=== PATIENT | female | born 1940 | race Caucasian/White ===

== ENCOUNTER 2017-05-05 21:42 | Observation (INO) | payer MEDICARE, MEDICAID ==
[2017-05-05 23:01] LABS: Hematocrit 33 % (35-47); Hemoglobin 10.8 g/dl (12.0-16.0); Mean Corpuscular HGB Conc 33 g/dl (31-36); Mean Corpuscular Hemoglobin 34 pg (27-31); Mean Corpuscular Volume 104 fL (80-97); Mean Platelet Volume 7 um3 (7.4-10.4); Red Blood Count 3.18 10^6/ul (4.0-5.4); Red Cell Distribution Width 16 % (10.5-15); White Blood Count 8.7 10^3/ul (3.5-10.8)
[2017-05-05 23:16] LABS: ALT 17 U/L (7-52); Albumin 3.9 g/dL (3.2-5.2); Alkaline Phosphatase 83 U/L (34-104); BUN/Creatinine Ratio 31.9 (8-20); Blood Urea Nitrogen 66 mg/dL (6-24); CO2 Carbon Dioxide 29 mmol/L (22-32); Calcium 10.3 mg/dL (8.6-10.3); Chloride 94 mmol/L (101-111); EGFR African American 29.9 (>60); EGFR Non-African American 23.2 (>60); Globulin 3.6 g/dL (2-4); Glucose 104 mg/dL (70-100); Sodium 134 mmol/L (133-145); Total Protein 7.5 g/dL (6.4-8.9)
[2017-05-05 23:24] LABS: Anion Gap 11 mmol/L (2-11); Troponin I 0.06 ng/mL (<0.04)
[2017-05-05] MEDS ORDERED: Furosemide IV* 10 MG/ML VIAL (40 MG) IV ONE (23:33)
[2017-05-06 01:32] LABS: Urine Bilirubin Negative (Negative); Urine Glucose Negative (Negative); Urine Nitrite Negative (Negative)
[2017-05-06 02:20] LABS: Potassium 3.3 mmol/L (3.5-5.0); Troponin I 0.07 ng/mL (<0.04)
[2017-05-06] MEDS ORDERED: Docusate CAP* 100 MG PO PRN (03:02)
[2017-05-06] MEDS ORDERED: Ondansetron INJ* 2 MG/ML VIAL IV PRN (03:02)
[2017-05-06] MEDS ORDERED: Al Hydrox/Mg Hydrox/Simet LIQ* 30 ML UDC PO PRN (03:02)
[2017-05-06] MEDS ORDERED: Acetaminophen TAB* 325 MG PO PRN (03:02)
[2017-05-06] MEDS ORDERED: Senna TAB PO PRN (03:02)
[2017-05-06] MEDS ORDERED: traMADol TAB* 50 MG PO PRN (03:04)
[2017-05-06] MEDS ORDERED: Potassium Chlor TAB* 20 MEQ TAB.ER PO ONE (03:06)
[2017-05-06 03:21] LABS: Magnesium 2.7 mg/dL (1.9-2.7)
[2017-05-06 04:58] LABS: BUN/Creatinine Ratio 34.4 (8-20); Blood Urea Nitrogen 64 mg/dL (6-24); CO2 Carbon Dioxide 27 mmol/L (22-32); Calcium 10.1 mg/dL (8.6-10.3); Chloride 96 mmol/L (101-111); EGFR African American 33.8 (>60); EGFR Non-African American 26.3 (>60); Glucose 87 mg/dL (70-100); Sodium 134 mmol/L (133-145)
[2017-05-06 05:04] LABS: Troponin I 0.07 ng/mL (<0.04)
[2017-05-06 05:34] LABS: Anion Gap 11 mmol/L (2-11)
[2017-05-06] MEDS ORDERED: Levothyroxine TAB* 125 MCG TAB PO SCH (06:00)
--- NOTE | 2017-05-06 07:49 | RAD ---
INDICATION: Short of breath COMPARISON: October 31, 2015 TECHNIQUE: PA and lateral dual-energy views were obtained. FINDINGS: Bones/Soft Tissues: There are no acute bony findings. There is a right-sided cardiac pacemaker. There are sternotomy. Cardiomediastinal: The cardiomediastinal silhouette is at the upper range of normal in size.. Lungs: There is basilar hypoventilation but no definite infiltrates.. Pleura: There are no pleural effusions. Other: None IMPRESSION: Expiratory examination. Postoperative changes. No acute infiltrates.
--- NOTE | 2017-05-06 08:16 | HP ---
CC: Matty Gutierrez MD * HISTORY AND PHYSICAL: DATE OF ADMISSION: 05/06/17 PRIMARY CARE PHYSICIAN: Matty Gutierrez MD. CHIEF COMPLAINT: Shortness of breath. HISTORY OF PRESENT ILLNESS: This is a 75-year-old female with a past medical history of diastolic heart failure, moderate tricuspid regurg and pulmonary hypertension, who presents to the emergency room with worsening shortness of breath over the past few days. The patient was also recently diagnosed with mild Alzheimer's and is a poor historian. Her son is able to fill in some gaps , but apparently she has been short of breath for the past few days. Her neighbor was visiting, was concerned about her breathing, and the patient was gasping and bryant appearing. EMS was subsequently called. The patient states that her breathing feels better. She appears comfortable. She was given 40 mg of Lasix. She denies any chest pain. No nausea. She states she has had a good appetite. She state she takes her medications regularly. She was unable to tell me what she had for dinner last evening. She states she has some lower extremity swelling. No abdominal pain. No urinary symptoms. She states her weight has been steady around 142 pounds. Otherwise, remaining review of systems is negative. As mentioned, the patient was given 40 mg of Lasix and referred to the hospitalist service for further evaluation. PAST MEDICAL HISTORY: 1. Rheumatoid arthritis 2. Hypertension. 3. History of atrial fibrillation. 4. History of third degree heart block, status post pacemaker placement. 5. GERD. 6. Hypothyroidism. 7. Irritable bowel syndrome. 8. History of mitral valve repair, now with moderate MR. 9. Diastolic congestive heart failure. 10. Moderate TR. 11. Moderate pulmonary hypertension. 12. CKD, stage III. 13. History of aplastic anemia secondary to methotrexate. PAST SURGICAL HISTORY: 1. Cataract surgery. 2. 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 3. Status post bilateral knee replacement. 4. Status post . 5. Tubal ligation. MEDICATIONS: 1. Tramadol 50 mg p.o. t.i.d. as needed. 2. Potassium chloride 20 mEq daily. 3. Magnesium oxide 100 mg p.o. daily. 4. Hydroxychloroquine 200 mg p.o. daily. 5. Lasix 40 mg daily. 6. Amlodipine 5 mg daily. 7. Donepezil 5 mg daily. 8. Atorvastatin 20 mg daily. 9. Folic acid 1 mg daily. 10. Ferrous sulfate 225 mg p.o. b.i.d. 11. Famotidine 40 mg daily. 12. Multivitamin daily. 13. Colace 100 mg daily. 14. Aspirin 81 mg daily. 15. Vitamin C 250 mg daily. 16. Coumadin 6 mg on Sundays and Wednesdays, and 4 mg on the remaining days. 17. Synthroid 125 mcg daily. ALLERGIES: MACROLIDES, BETA BLOCKERS, CEPHALOSPORINS, CODEINE, INDOMETHACIN, NSAIDS, PENICILLIN, SULFA, QUINOLONES, ANTITUSSIVES, AND OPIOID AGONIST. FAMILY HISTORY: Reviewed and noncontributory. SOCIAL HISTORY: The patient lives alone, independent of her ADLs. Her son is there frequently visiting with her who is her healthcare proxy, Clinton Mike , phone number [phone]. She quit smoking more than 15 years ago. No alcohol use. No illicit drug use. Her MOLST form is a DNR/DNI. We will refill out another one as they aren't sure if they still have the form. REVIEW OF SYSTEMS: A 14-point review of systems was reviewed. Pertinent positives and negatives are mentioned in the HPI, otherwise negative. PHYSICAL EXAMINATION GENERAL: In no acute distress, resting comfortably with her son at the bedside. VITAL SIGNS: Temp 98.5, pulse rate 68, respiratory rate 14, oxygen saturation 96 % on room air, blood pressure 119/61. HEENT: Head normocephalic. Pupils are equal and reactive. Anicteric. Oropharynx - mucous membranes are moist. No erythema or exudate. NECK: Supple. No lymphadenopathy. RESPIRATORY: Diminished breath sounds. No wheezes, rhonchi, or rales. CARDIAC: Regular rate and rhythm with ectopic beats present. Systolic murmur heard, most prominent at the right sternal base. ABDOMEN: Soft, nontender, and nondistended. EXTREMITIES: Trace pretibial edema. NEUROLOGIC: Alert and oriented x3. No focal neurologic deficits. LABORATORY DATA: White count 8.7, hemoglobin 10.8, hematocrit 33, platelets 389. Sodium 134, potassium 3.3, chloride 94, bicarb 29, BUN 66, creatinine 2.07 , glucose 104. Troponin 0.06, repeat 0.07. BMP 387. RADIOGRAPHIC DATA: Chest x-ray with some mild prominent interstitial markings. EKG shows atrial ventricular paced rhythm. ASSESSMENT: This is a 76-year-old female with a significant cardiac history who presents to the emergency room with progressive shortness of breath, found to be in acute decompensated heart failure. 1. Shortness of breath. Assessment: The patient's findings are secondary to acute decompensated heart failure. It's unclear if it's dietary indiscretion as she is not aware what she was eating yesterday. She denies any chest pain. She has quickly improved with 40 of Lasix and appears comfortable. However, her troponin is mildly elevated. Plan: We will admit her to telemetry, continue to trend her troponin, check a lipid panel, obtain a repeat echocardiogram as the family states it has been a while since she has had one. We will check her I's and O's daily, weights, and low-salt diet. CHRONIC MEDICAL PROBLEMS 1. With history of congestive heart failure, we will resume her Lasix 40 mg p.o. daily dose with potassium chloride supplement and magnesium oxide supplement. 2. Hypertension. Resume amlodipine. 3. History of atrial fibrillation. On Coumadin. Will check her INR, and resume her regular scheduled regimen. 4. Hypothyroidism. Resume her Synthroid. 5. Gastroesophageal reflux disease. Resume her Pepcid. 6. Hyperlipidemia. Resume HER atorvastatin. 7. Dementia. Resume her Aricept. 8. History of rheumatoid arthritis. Resume her Plaquenil. 9. DVT prophylaxis. The patient scores a high risk. The patient is on Coumadin. We will check an INR. 10. Code status: The patient is a DNR/DNI. MOLST form will be completed this evening. PATIENT TIME: Greater than 60 minutes were spent doing the history and physical , more than half the time was spent in direct patient contact. [id number]/[facility]PS #: [id number] MTDD
[2017-05-06] MEDS ORDERED: Hydroxychloroquine TAB* 200 MG PO SCH (09:00)
[2017-05-06] MEDS ORDERED: Famotidine TAB* 20 MG PO SCH (09:00)
[2017-05-06] MEDS ORDERED: amLODIPine TAB* 5 MG PO SCH (09:00)
[2017-05-06] MEDS ORDERED: Folic Acid TAB* 1 MG PO SCH (09:00)
[2017-05-06] MEDS ORDERED: Potassium Chlor TAB* 20 MEQ TAB.ER PO SCH (09:00)
[2017-05-06] MEDS ORDERED: Magnesium Oxide TAB* 400 MG PO SCH (09:00)
[2017-05-06] MEDS ORDERED: Ferrous Gluconate TAB* 324 MG TAB PO SCH ×2 (09:00)
[2017-05-06] MEDS ORDERED: Ascorbic Acid TAB* 500 MG PO SCH (09:00)
[2017-05-06] MEDS ORDERED: Furosemide TAB* 40 MG PO SCH (09:00)
[2017-05-06] MEDS ORDERED: Aspirin EC Low Dose* 81 MG TAB.EC PO SCH (09:00)
[2017-05-06 10:51] LABS: TSH (Thyroid Stimulating Horm) 5.92 mcIU/mL (0.34-5.60)
[2017-05-06 10:58] LABS: Free T4 1.11 ng/dL (0.61-1.12)
[2017-05-06 11:29] VITALS: BP 115/56
[2017-05-06] MEDS ORDERED: Warfarin TAB(*) 6 MG PO SCH (17:00)
[2017-05-06] MEDS ORDERED: Atorvastatin* 20 MG TAB PO SCH (17:00)
[2017-05-06] MEDS ORDERED: Donepezil TAB* 5 MG PO SCH (18:00)
--- NOTE | 2017-05-06 18:04 | ECHO ---
Patient: CARMELINA HOLLAND [facility] Rec#: [id number] : 1940 Date: 05/06/2017 Age: 76y Height: 157.5 cm / 62.0 in Weight: 64.4 kg / 141.9 lbs Sex: F BSA: 1.65 Room#: 438 Admit Date#: 05/06/2017 Type: Inpatient Referring: Yamileth Ornelas Reading: Ming Polk MD Contact Lens Molder: Ambika Oreilly RN RDCS CC: Matty Gutierrez MD Transthoracic Echocardiogram Indication: Shortness of breath BP: 132/63 HR: 70 Rhythm: Paced Findings History: MVR, A. fib, pacemaker, CHF, HTN Technical Comments: The study quality is fair. Completed at 1535. Left Ventricle: The left ventricular chamber size is normal. Mild concentric left ventricular hypertrophy is observed. Global left ventricular wall motion and contractility are within normal limits. There is normal left ventricular systolic function. The estimated ejection fraction is 55-60%. Post surgical hypokinesis of the interventricular septum is observed consistent with valve replacement. There is abnormal ventricular septal wall motion consistent with right ventricular pacemaker. The assessment of diastolic function is non-diagnostic. Left Atrium: The left atrium is moderate to severely dilated. Right Ventricle: The right ventricular cavity size is normal. The right ventricular global systolic function is normal. A pacemaker wire is visualized in the right ventricle. Right Atrium: The right atrium is moderately dilated. A pacemaker wire is visualized in the right atrium. Aortic Valve: The aortic valve is trileaflet. The aortic valve leaflets are moderately thickened. Systolic excursion of the aortic valve cusps is reduced. There is mild aortic regurgitation. There is moderate aortic stenosis. The mean gradient of the aortic valve is 13.7 mmHg. The peak instantaneous gradient of the aortic valve is 23 mmHg. The aortic valve area, by peak velocities, is calculated at 1.4 cm2. The aortic valve area, by VTI's, is calculated at 1.2 cm2. Mitral Valve: There is posterior mitral annular calcification.There a mobile echogenic lesion adjacent to the medial chordal structures: possible mobile chordae vs artifact or less likely vegetation. consider clinical correlation and IGGY for further evaluation if indicated. There is a trace of mitral regurgitation. A bioprosthetic mitral valve is present. Appears to be functioning normally. Tricuspid Valve: The tricuspid valve leaflets are normal. There is moderate to severe tricuspid regurgitation. There is evidence of moderate pulmonary hypertension. Pulmonic Valve: The pulmonic valve appears normal. There is trace to mild pulmonic regurgitation. There is no pulmonic stenosis. Pericardium: There is no significant pericardial effusion. A pericardial fat pad is visualized. Aorta: There is no dilatation of the ascending aorta. The aortic arch is not well visualized. There is no dilation of the aortic root. Pulmonary Artery: The main pulmonary artery appears normal. Venous: The inferior vena cava appears normal in size. There is an approximate 50% respiratory change in the inferior vena cava dimension. Conclusions Mild concentric left ventricular hypertrophy is observed. The estimated ejection fraction is 55-60%. Post surgical hypokinesis of the interventricular septum is observed consistent with valve replacement. The left atrium is moderate to severely dilated. Systolic excursion of the aortic valve cusps is reduced. There is mild aortic regurgitation. There is moderate aortic stenosis. There is posterior mitral annular calcification.There is a mobile echogenic lesion adjacent to the medial chordal structures: possible mobile chordae vs artifact or less likely vegetation. Consider clinical correlation and IGGY for further evaluation if indicated. There is a trace of mitral regurgitation. A bioprosthetic mitral valve is present. Appears to be functioning normally. There is moderate to severe tricuspid regurgitation. There is evidence of moderate pulmonary hypertension. There is trace to mild pulmonic regurgitation. Interval improvement in EF c/t 10/2015 when it was 40-45%. On direct comparison, the mobile lesion in the vicinity of medial chordal apparatus appears similar; given the stability of the findings, it is likely a mobile or ruptured chordae. Measurements Name Value Normal Range RAd ISD 4CH 6.4 cm (3.4 - 4.9) RA (A4C)W 5.4 cm (2.9 - 4.6) IVSd (2D) 1.2 cm (0.6 - 1) LVPWd (2D) 1.1 cm (0.6 - 1) LVIDd (2D) 5 cm (3.6 - 5.4) LVIDs (2D) 3.1 cm - LV FS (2D) 38 % (25 - 45) EF Teichholz (2D) 68 % - Aortic Annulus 1.7 cm (1.4 - 2.6) Ao root diameter (2D) 2.7 cm (2.1 - 3.5) Ascending Ao 3.2 cm (2.1 - 3.4) LA dimension (AP) 2D 4.8 cm (2.3 - 3.8) LAd ISD 4CH 5.2 cm (2.9 - 5.3) LA ISD 4CH W 5.2 cm (2.5 - 4.5) Name Value Normal Range LA ESV SP 4CH (A/L) 93 ml - LA ESV SP 2CH (A/L) 99 ml - LA ESV BP (A/L) 97 ml - LA ESV BP (A/L) index 59 ml/m2 - LA ESV SP 4CH (MOD) 84 ml - LA ESV SP 2CH (MOD) 96 ml - Name Value Normal Range MV E-wave Vmax 1.5 m/sec - MV deceleration time 265 msec - LV septal e' Vmax 0.06 m/sec - LV lateral e' Vmax 0.09 m/sec - LV E:e' septal ratio 25 ratio - LV E:e' lateral ratio 16.7 ratio - Name Value Normal Range AV Vmax 2.4 m/sec - AV VTI 50.4 cm - AV peak gradient 23 mmHg - AV mean gradient 13.7 mmHg - LVOT diameter 2 cm - LVOT Vmax 1.1 m/sec - LVOT VTI 19.7 cm - LVOT peak gradient 5.1 mmHg - LVOT mean gradient 2.1 mmHg - DOI (VTI) 0.39 ratio - DOI (Vmax) 0.46 ratio - SV LVOT 62 ml - CO LVOT 4.3 l/min - Cardiac index 2.6 l/min/m2 - VINCENT (continuity Vmax) 1.4 cm2 - VINCENT (continuity VTI) 1.2 cm2 - Name Value Normal Range MV Vmax 1.6 m/sec - MV VTI 37 cm - MV peak gradient 10.2 mmHg - MV mean gradient 3.3 mmHg - MV PHT 93.6 msec - MVA (PHT) 2.4 cm2 - MVA (continuity VTI) 1.7 cm2 - Name Value Normal Range TR Vmax 3.4 m/sec - TR peak gradient 46 mmHg - RAP 8 mmHg - RVSP 54 mmHg - IVC diameter 1.5 cm - Name Value Normal Range PV Vmax 1.1 m/sec -
--- NOTE | 2017-05-07 12:29 | DS ---
CC: Primary Care Provider, Dr. Gutierrez * DISCHARGE SUMMARY: DATE OF ADMISSION: 05/06/17 DATE OF DISCHARGE: 05/06/17 ATTENDING PROVIDER: Ramsey Belcher MD* (DICTATED BY JESSE OLGUIN) PRIMARY DISCHARGE DIAGNOSES: 1. Acute congestive heart failure exacerbation, combined systolic and diastolic dysfunction. 2. Mild dementia. 3. Rheumatoid arthritis. 4. Atrial fibrillation. 5. Pacemaker in place with history of heart block. 6. Hypothyroidism with slightly elevated TSH but normal free T4. 7. Moderate pulmonary hypertension. 8. Stage 3 chronic kidney disease. 9. Gastroesophageal reflux disease. DISCHARGE MEDICATIONS: 1. Aspirin 81 mg p.o. daily. 2. Atorvastatin 20 mg p.o. daily. 3. Docusate 100 mg p.o. daily. 4. Donepezil 5 mg p.o. daily. 5. Pepcid 40 mg p.o. daily. 6. Ferrous gluconate 325 mg p.o. twice daily. 7. Folic acid 1 mg p.o. daily. 8. Lasix 40 mg p.o. daily. 9. Plaquenil 200 mg p.o. daily. 10. Levothyroxine 125 mcg p.o. daily. 11. Magnesium oxide 800 mg p.o. daily. 12. Multivitamin 1 tablet p.o. daily. 13. Potassium chloride 20 mEq p.o. daily. 14. Coumadin 4 mg p.o. daily. 15. Amlodipine 5 mg p.o. daily. 16. Ultram 50 mg p.o. t.i.d. as needed for pain. HOSPITAL IMAGIN. Chest x-ray shows a poor film, it is an expiratory exam with some postoperative changes, showing a right-sided pacemaker and sternotomy, but no acute infiltrates. 2. EKG shows a primarily paced rhythm. 3. Echocardiogram - pending at the time of discharge. HOSPITAL COURSE: This is a very pleasant 76-year-old female with a history of combined systolic and diastolic heart failure as well as rheumatoid arthritis, atrial fibrillation, pacemaker in place with history of heart block, hypothyroidism, prior mitral valve replacement, stage 3 chronic kidney disease and moderate pulmonary hypertension, who presented with complaints of shortness of breath and lower extremity swelling. The patient's dementia prohibited her giving a completely accurate history but denied any dietary discretions and states that she generally keeps a low-salt diet. Denied any associated chest pain or significant weight gain per se. Her chest x-ray in the emergency department was nondiagnostic. Initial labs were remarkable for slightly elevated troponin to 0.06. Renal function slightly impaired but at her baseline and BNP was mildly elevated. She received 40 mg of IV Lasix in the emergency department and was subsequently admitted for additional observation. The patient states that she diuresed significantly after receiving IV Lasix and felt that her shortness of breath resolved. She was able to ambulate to the bathroom and back without dyspnea. Serial troponins remained stable at approximately 0.06 to 0.07. TSH was checked, which was elevated to 5.9, but free T4 was on the high side of normal at 1.1 and for this reason, her levothyroxine dose was not changed, but does require further followup in 4 to 6 weeks. DISPOSITION AND FOLLOWUP PLAN: The patient is being discharged to home where she lives at [facility]. No changes to home medications recommended at this time as she now appears to be euvolemic. Recommend close followup with primary care within the next week. She does require a repeat TSH and free T4 in 4 to 6 weeks as well as a repeat INR on Thursday as she is subtherapeutic at 1.6 at the time of discharge. JESSE OLGUIN [id number]/[facility] #: [id number] JEANETH
[2017-05-07] MEDS ORDERED: Warfarin TAB(*) 4 MG PO SCH (17:00)
== END 2017-05-06 19:00 | disposition home or self-care (01) ==
LOC: ED 21:42 → MEDTELE 05-06 03:02
PROVIDERS: ADMIT Pediatrics; ATTEND Physician Assistant
DX: I50.43 Acute on chronic combined systolic (congestive) and diastolic (congestive) heart failure (principal); M06.9 Rheumatoid arthritis, unspecified; I48.91 Unspecified atrial fibrillation; Z95.0 Presence of cardiac pacemaker; E03.9 Hypothyroidism, unspecified; Z95.2 Presence of prosthetic heart valve; N18.3 Chronic kidney disease, stage 3 (moderate); I27.2 Other secondary pulmonary hypertension; R06.02 Shortness of breath; R60.9 Edema, unspecified; I45.9 Conduction disorder, unspecified; I12.9 Hypertensive chronic kidney disease with stage 1 through stage 4 chronic kidney disease, or unspecified chronic kidney disease; I34.0 Nonrheumatic mitral (valve) insufficiency; Z79.01 Long term (current) use of anticoagulants; Z79.82 Long term (current) use of aspirin; R74.8 Abnormal levels of other serum enzymes
CPT/HCPCS: 36415; 71020; 80048; 80053; 81003; 83605; 83735; 83880; 84132; 84439; 84443; 84484; 85025; 85610; 85730; 93005; 93306; 96374; 99283; A9270-GY; G0378; J1940

== ENCOUNTER 2017-07-23 20:45 | Inpatient (IN) | payer MEDICARE, MEDICAID ==
--- NOTE | 2017-07-23 21:49 | RAD ---
INDICATION: Fall, anticoagulation. COMPARISON: Comparison is made with a prior CT of the brain from February 13, 2015. TECHNIQUE: Contiguous axial sections of the brain were obtained from the skull base to the vertex without contrast. FINDINGS: The ventricles, cisterns and sulci are enlarged consistent with diffuse atrophy. There are multiple focal areas of decreased density in the subcortical and periventricular white matter suggestive of moderate chronic small vessel ischemic changes. 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 No other focal abnormalities are seen. No mass effect is noted. There is no evidence for hemorrhage. No significant focal osseous abnormality is seen. The visualized portion of the paranasal sinuses and mastoid air cells appear clear. IMPRESSION: NO EVIDENCE FOR ACUTE INTRACRANIAL ABNORMALITY.
--- NOTE | 2017-07-23 21:56 | RAD ---
INDICATION: Fall, weakness. COMPARISON: Comparison is made with a prior chest x-ray study from May 05, 2017. TECHNIQUE: Dual-energy PA views of the chest were obtained. FINDINGS: The patient is status post sternotomy. There is a dual-chamber transvenous pacemaker present. The heart is mildly enlarged and unchanged from the prior exam. The lungs are underinflated. There is a small infiltrate in the left mid lung. No pleural effusion is seen. IMPRESSION: HYPOVENTILATION SMALL LEFT LUNG INFILTRATE.
[2017-07-23 22:24] LABS: Hematocrit 27 % (35-47); Hemoglobin 8.9 g/dl (12.0-16.0); Mean Corpuscular HGB Conc 33 g/dl (31-36); Mean Corpuscular Hemoglobin 34 pg (27-31); Mean Corpuscular Volume 104 fL (80-97); Mean Platelet Volume 7 um3 (7.4-10.4); Red Blood Count 2.62 10^6/ul (4.0-5.4); Red Cell Distribution Width 18 % (10.5-15)
[2017-07-23 22:38] LABS: Albumin 3.4 g/dL (3.2-5.2); BUN/Creatinine Ratio 39.6 (8-20); Calcium 10.7 mg/dL (8.6-10.3); EGFR African American 29.9 (>60); EGFR Non-African American 23.2 (>60); Total Bilirubin 0.3 mg/dL (0.2-1.0); Total Protein 6.4 g/dL (6.4-8.9)
[2017-07-23 22:40] LABS: Potassium 2.3 mmol/L (3.5-5.0)
[2017-07-23 22:43] LABS: Troponin I 0.1 ng/mL (<0.04)
[2017-07-23] MEDS ORDERED: Acetaminophen TAB* 325 MG PO PRN (23:23)
[2017-07-23] MEDS ORDERED: CMCS:Melatonin (NF) 3 MG TAB PO PRN (23:23)
[2017-07-23] MEDS ORDERED: Albuterol 2.5 MG/3 ML NEB.SOL* (0.083%) INH PRN (23:23)
[2017-07-23 23:24] LABS: Urine Bacteria Absent (Absent); Urine Bilirubin Negative (Negative); Urine Glucose Negative (Negative); Urine Nitrite Negative (Negative)
--- NOTE | 2017-07-23 23:25 | ED ---
Robin Singletary Rebecca, scribed for Katharine Meza MD on 07/23/17 at 2129 . Complex/Multi-Sys Presentation - HPI Summary HPI Summary: Pt is a 76 y/o F BIBA who presents to ED s/p mechanical fall. At approximately 1900 the pt had an unwitnessed fall. Pt c/o dizziness that is resolved when laying down. Pt's son has been concerned with her recent sx of difficulty standing and SOB. Pt's son last saw her 2 days ago, during which he reports she was doing well. Denies dysuria, neck pain. Pt reports she does not believe she is experiencing fluid retention. Intermittently uses O2 at home. Is on Coumadin and the son reports she typically bruises easily. PMHx dementia. Majority of Hx obtained from son which he confirms is normal. - History Of Current Complaint Chief Complaint: EDGeneral Time Seen by Provider: 07/23/17 21:13 Hx Obtained From: Patient Onset/Duration: Still Present Severity Currently: Moderate - 4/10 Aggravating Factor(s): Nothing Alleviating Factor(s): Dizziness - laying down Associated Signs And Symptoms: Positive: Dizziness, SOB, Other - Difficulty standing - Allergies/Home Medications Allergies/Adverse Reactions: Allergies Allergy/AdvReac Type Severity Reaction Status Date / Time Macrolides and Ketolides Allergy Severe possible Verified 10/31/15 23:21 QT prolongation/torsades Beta Adrenergic Blockers Allergy Unknown Verified 10/31/15 23:21 Reaction Details Cephalosporins Allergy Unknown Verified 10/31/15 23:21 Reaction Details Codeine Allergy See Comment Verified 10/31/15 23:21 Indomethacin [From Indocin] Allergy Unknown Verified 10/31/15 23:21 Reaction Details NSAIDs Allergy See Comment Verified 10/31/15 23:21 Penicillins Allergy Unknown Verified 10/31/15 23:21 Reaction Details Sulfa Drugs Allergy Unknown Verified 10/31/15 23:21 Reaction Details quinalones Allergy Severe possible Uncoded 10/31/15 23:21 QT prolongation /torasades ANTITUSSIVES Allergy Unknown Uncoded 10/31/15 23:21 Reaction Details OPIATE AGONISTS Allergy Unknown Uncoded 10/31/15 23:21 Reaction Details PMH/Surg Hx/FS Hx/Imm Hx Endocrine/Hematology History: Reports: Hx Anticoagulant Therapy - takes coumadin , Hx Thyroid Disease, Hx Anemia - aplastic anemia 2013 Denies: Hx Diabetes Cardiovascular History: Reports: Hx Congestive Heart Failure, Hx Coronary Artery Disease, Hx Hypertension, Hx Pacemaker/ICD, Hx Syncope, Hx Valvular Heart Disease - mitral valve disorder, Other Cardiovascular Problems/Disorders - Coumadin Respiratory History: Reports: Hx Asthma, Hx Pneumonia GI History: Reports: Hx Gastroesophageal Reflux Disease, Hx Ulcer - gastric in the History: Reports: Hx Acute Renal Failure - elevated BUN and Creat Musculoskeletal History: Reports: Hx Arthritis, Hx Back Problems, Hx Gout, Other Musculoskeletal History - RA Denies: Hx Osteoporosis Sensory History: Reports: Hx Cataracts - removed, Hx Contacts or Glasses, Hx Glaucoma Denies: Hx Hearing Aid Opthamlomology History: Reports: Hx Cataracts - removed, Hx Contacts or Glasses , Hx Glaucoma Neurological History: Reports: Hx Dementia Denies: Hx Developmental Delay, Hx Headaches, Hx Migraine, Hx Nerve Disease, Hx Seizures, Hx Spinal Cord Injury, Hx Transient Ischemic Attacks (TIA), Other Neuro Impairments/Disorders - Cancer History Cancer Type, Location and Year: pt seen by oncology for aplastic anemia, resolved per pt Hx Chemotherapy: No Hx Radiation Therapy: No Hx Palliative Cancer Treatment: No - Surgical History Surgery Procedure, Year, and Place: Bilat knee replacements at [facility] ? 1914-1763. Right wrist pinning at [facility] ?1997. Back surgery at [facility] ?2000. Pacemaker placed at [facility] 1994. Thyroid surgery at [facility] 1996. . x3. Cataract surgery. Appendectomy 1959 Hx Anesthesia Reactions: No Infectious Disease History: No Infectious Disease History: Reports: Hx Hepatitis - nothing active, History Other Infectious Disease - unidentified abx-resistant infection in foot, negative MRSA Denies: Traveled Outside the [place] in Last 30 Days - Family History Known Family History: Positive: Cardiac Disease, Hypertension, Diabetes - Social History Alcohol Use: None Substance Use Type: Reports: None Smoking Status (MU): Former Smoker Review of Systems Positive: Other - Difficulty standing Positive: Shortness Of Breath Negative: dysuria Positive: Other - NEGATIVE: Neck pain Neurological: Other - Dizziness All Other Systems Reviewed And Are Negative: Yes Physical Exam - Summary Physical Exam Summary: General: Well appearing, no pain distress Skin: Warm, Skin Color Reflects Adequate Perfusion, Dry Eyes: EOMI, SEBASTIAN ENT: Pharynx normal, TMs normal Neck: Supple, nontender Respiratory: CTA, breath sounds present, no rhonchi, no wheezes, no rales Cardiovascular: RRR, no murmur, no rub, no gallop Abdomen: Soft, nontender, Non-distended, no guarding, no rebound Bowel: Present Musculoskeletal: [place], No edema Neuro: Sensory/motor intact, A&Ox3, CN intact 2-12 Psych: Affect/mood appropriate Triage Information Reviewed: Yes Vital Signs On Initial Exam: Initial Vitals Temp Pulse Resp BP Pulse Ox 99.2 F 70 16 143/40 100 07/23/17 21:06 07/23/17 21:06 07/23/17 21:06 07/23/17 21:06 07/23/17 21:06 Vital Signs Reviewed: Yes - [place] Coma Scale Coma Scale Total: 14 Diagnostics - Vital Signs Vital Signs Temp Pulse Resp BP Pulse Ox 07/23/17 21:06 99.2 F 70 16 143/40 100 - Laboratory Lab Results: Lab Results 07/23/17 07/23/17 07/23/17 Range/Units 22:15 22:15 22:15 WBC 9.0 (3.5-10.8) 10^3/ul RBC 2.62 L (4.0-5.4) 10^6/ul Hgb 8.9 L (12.0-16.0) g/dl Hct 27 L (35-47) % MCV 104 H (80-97) fL MCH 34 H (27-31) pg MCHC 33 (31-36) g/dl RDW 18 H (10.5-15) % Plt Count 414 (150-450) 10^3/ul MPV 7 L (7.4-10.4) um3 Neut % (Auto) 80.5 (38-83) % Lymph % (Auto) 8.2 L (25-47) % [place] % (Auto) 10.2 H (1-9) % Eos % (Auto) 0.2 (0-6) % Baso % (Auto) 0.9 (0-2) % Absolute Neuts (auto) 7.3 (1.5-7.7) 10^3/ul Absolute Lymphs (auto) 0.7 L (1.0-4.8) 10^3/ul Absolute Monos (auto) 0.9 H (0-0.8) 10^3/ul Absolute Eos (auto) 0 (0-0.6) 10^3/ul Absolute Basos (auto) 0.1 (0-0.2) 10^3/ul Absolute Nucleated RBC 0.03 10^3/ul Nucleated RBC % 0.3 INR (Anticoag Therapy) 4.01 H (0.89-1.11) APTT 28.1 (26.0-36.3) seconds Sodium 135 (133-145) mmol/L Potassium 2.3 L* (3.5-5.0) mmol/L Chloride 92 L (101-111) mmol/L Carbon Dioxide 32 (22-32) mmol/L Anion Gap 11 (2-11) mmol/L BUN 82 H (6-24) mg/dL Creatinine 2.07 H (0.51-0.95) mg/dL Est GFR ( Amer) 29.9 (>60) Est GFR (Non-Af Amer) 23.2 (>60) BUN/Creatinine Ratio 39.6 H (8-20) Glucose 121 H (70-100) mg/dL Lactic Acid (0.5-2.0) mmol/L Calcium 10.7 H (8.6-10.3) mg/dL Total Bilirubin 0.30 (0.2-1.0) mg/dL AST 29 (13-39) U/L ALT 16 (7-52) U/L Alkaline Phosphatase 87 (34-104) U/L Troponin I 0.10 H* (<0.04) ng/mL Total Protein 6.4 (6.4-8.9) g/dL Albumin 3.4 (3.2-5.2) g/dL Globulin 3.0 (2-4) g/dL Albumin/Globulin Ratio 1.1 (1-3) 07/23/17 Range/Units 22:15 WBC (3.5-10.8) 10^3/ul RBC (4.0-5.4) 10^6/ul Hgb (12.0-16.0) g/dl Hct (35-47) % MCV (80-97) fL MCH (27-31) pg MCHC (31-36) g/dl RDW (10.5-15) % Plt Count (150-450) 10^3/ul MPV (7.4-10.4) um3 Neut % (Auto) (38-83) % Lymph % (Auto) (25-47) % [place] % (Auto) (1-9) % Eos % (Auto) (0-6) % Baso % (Auto) (0-2) % Absolute Neuts (auto) (1.5-7.7) 10^3/ul Absolute Lymphs (auto) (1.0-4.8) 10^3/ul Absolute Monos (auto) (0-0.8) 10^3/ul Absolute Eos (auto) (0-0.6) 10^3/ul Absolute Basos (auto) (0-0.2) 10^3/ul Absolute Nucleated RBC 10^3/ul Nucleated RBC % INR (Anticoag Therapy) (0.89-1.11) APTT (26.0-36.3) seconds Sodium (133-145) mmol/L Potassium (3.5-5.0) mmol/L Chloride (101-111) mmol/L Carbon Dioxide (22-32) mmol/L Anion Gap (2-11) mmol/L BUN (6-24) mg/dL Creatinine (0.51-0.95) mg/dL Est GFR ( Amer) (>60) Est GFR (Non-Af Amer) (>60) BUN/Creatinine Ratio (8-20) Glucose (70-100) mg/dL Lactic Acid 1.3 (0.5-2.0) mmol/L Calcium (8.6-10.3) mg/dL Total Bilirubin (0.2-1.0) mg/dL AST (13-39) U/L ALT (7-52) U/L Alkaline Phosphatase (34-104) U/L Troponin I (<0.04) ng/mL Total Protein (6.4-8.9) g/dL Albumin (3.2-5.2) g/dL Globulin (2-4) g/dL Albumin/Globulin Ratio (1-3) Result Diagrams: 07/23/17 22:15 07/23/17 22:15 Lab Statement: Any lab studies that have been ordered have been reviewed, and results considered in the medical decision making process. - Radiology CXR Xray Interpretation: Positive (See Comments) - HYPOVENTILATION SMALL LEFT LUNG INFILTRATE. ED physician reviewed radiology report and agrees. Radiology Interpretation Completed By: Radiologist - CT Brain CT CT Interpretation: No Acute Changes - NO EVIDENCE FOR ACUTE INTRACRANIAL ABNORMALITY. ED physician reviewed radiology report and agrees. CT Interpretation Completed By: Radiologist - EKG 2140 Cardiac Rate: NL - 88 bpm EKG Interpretation: Ventricular paced rhythm Complex Multi-Symp Course/Dx Course Of Treatment: 76 yo female who sustained an unwitnessed fall with dizziness today, ct brain normal but potassium markedly low and trop .10 pt denies any chest pain and ekg is paced. Case was discussed with Dr. Mayes who will be admitting the pt - Diagnoses Provider Diagnoses: Myocardial infarct, Hypokalemia Discharge - Discharge Plan Condition: Stable Disposition: ADMITTED TO [facility] The documentation as recorded by the Robin nunes Rebecca accurately reflects the service I personally performed and the decisions made by me, Katharine Meza MD.
[2017-07-23] MEDS ORDERED: Phytonadione Oral Solution* 5 MG/25 ML UDC PO ONE (23:35)
[2017-07-24] MEDS: NS 0.9% 1000 ML* 1,000 ML IV SCH ×2 (01:12→14:58)
[2017-07-24 02:43] LABS: Hematocrit 27 % (35-47); Hemoglobin 8.8 g/dl (12.0-16.0)
--- NOTE | 2017-07-24 05:43 | HP ---
H&P (Free Text) History and Physical: PCP: ANDRÉS Gutierrez MD Date/Time: 07/23/2017 [id number] CC: unwitnessed fall, on warfarin HPI: Mrs Mike is a 76YO female HX RA, pacer, mitral valve repair, AFIB, diastolic HF, CKD stg 3 called her son today around 1900 advising him she had fallen earlier after experiencing spinning dizziness. Upon arrival to her home, he states she appeared to have been on the toilet and to have fallen forward into the wall. She appeared disoriented to him and as he was aware of the dangers of a fall on warfarin he encouraged her to be evaluated. She additionally reports increased SOB for the past 1-2 weeks without a correlating increase in weight. She denies chest pain, N/V, F/C, cough, congestion, LE swelling, or other issues. 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 mitral valve repair, currently w/ moderate MR moderate TR moderate pHTN chronic diastolic HF AFIB CKD stg 4 HTN hypothyroidism GERD IBS, constipation dominant Ambulatory Orders Magnesium Oxide TAB* [MagOx 400 TAB*] 800 mg PO DAILY 05/11/13 Donepezil TAB* [Aricept 5 MG TAB*] 5 mg PO QPM 02/22/15 Hydroxychloroquine TAB* [Plaquenil TAB*] 200 mg PO DAILY 02/22/15 Levothyroxine TAB* [Synthroid 125 MCG TAB*] 125 mcg PO DAILY 02/22/15 Potassium Chloride Microencaps [Klor-Con M20] 20 meq PO DAILY 02/22/15 Warfarin TAB(*) [Coumadin TAB(*)] 4 mg PO DAILY 02/22/15 amLODIPine TAB* [Norvasc 5 mg TAB*] 5 mg PO DAILY 02/22/15 traMADol TAB* [Ultram*] 50 mg PO TID PRN 02/22/15 Ascorbic Acid TAB* [Vitamin C TAB*] 250 mg PO DAILY 11/01/15 Atorvastatin* [Lipitor 20 MG*] 20 mg PO 1700 11/01/15 Docusate CAP* [Colace Cap*] 100 mg PO DAILY 11/01/15 Famotidine TAB* [Pepcid 20 MG TAB*] 40 mg PO DAILY 11/01/15 Ferrous Gluconate TAB* [Fergon TAB*] 325 mg PO BID 11/01/15 Folic Acid TAB* [Folvite TAB*] 1 mg PO DAILY 11/01/15 Multiple Vitamins W/ Minerals [Multivitamin Adults 50+] 1 tab PO DAILY 11/01/15 Furosemide TAB* [Lasix TAB*] 40 mg PO DAILY #30 tab 11/02/15 Aspirin [Aspirin 81 MG TAB] 81 mg PO DAILY 05/05/17 Allergies Macrolides and Ketolides Allergy (Severe, Verified 10/31/15 23:21) possible QT prolongation/torsades Beta Adrenergic Blockers Allergy (Verified 10/31/15 23:21) Unknown Reaction Details PT DOES NOT RECALL Cephalosporins Allergy (Verified 10/31/15 23:21) Unknown Reaction Details PT DOES NOT RECALL Codeine Allergy (Verified 07/23/17 23:29) Unknown Reaction Details Indomethacin [From Indocin] Allergy (Verified 10/31/15 23:21) Unknown Reaction Details PT DOES NOT RECALL NSAIDs Allergy (Verified 07/23/17 23:29) Unknown Reaction Details Penicillins Allergy (Verified 10/31/15 23:21) Unknown Reaction Details PT DOES NOT RECALL Sulfa Drugs Allergy (Verified 10/31/15 23:21) Unknown Reaction Details PT DOES NOT RECALL quinalones Allergy (Severe, Uncoded 10/31/15 23:21) possible QT prolongation /torasades ANTITUSSIVES Allergy (Uncoded 10/31/15 23:21) Unknown Reaction Details PT DOES NOT RECALL OPIATE AGONISTS Allergy (Uncoded 10/31/15 23:21) Unknown Reaction Details PT DOES NOT RECALL PSurgHx cataract extraction 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 2nd washing machine B TKA section tubal ligation SocHx: quit smoking ~15years ago, no alcohol or recreational drugs; , lives alone, son frequently visits, no home health; DNR code status, MOLST filled out FamHx: reviewed, non-contributory to presentation ROS: as above, otherwise reviewed and all were negative vitals: Vital Signs Temp 36.6 C 07/24/17 00:35 Pulse 70 07/24/17 00:35 Resp 20 07/24/17 00:35 BP 113/57 07/24/17 00:35 Pulse Ox 100 07/24/17 00:35 Constitutional: NAD, normally developed, well-nourished elderly white female HEENM: atraumatic; sclera/conjunctiva: non-icteric/clear; hearing: clinically intact; oropharynx: clear, mucosa moist Neck: soft tissue: non-tender; thyroid: normal Pulmonary: clear to auscultation bilaterally, good aeration, no accessory muscle use CV: RR/RR, normal S1S2, no carotid bruit, no jugular venous distention, 2+ B DP/ PT, no edema Abdominal: soft, non-distended, non-tender, no rebound/guarding/rigidity, normoactive bowel sounds, no hepatosplenomegaly or masses, no costovertebral angle tenderness Musculoskeletal: general: grossly intact, no palpable tenderness Integumental: scattered bruising Psychiatric orientation: AA&O to PP, loosely to situation affect: calm mood: cooperative eye contact: fair content: mostly reliable responses: timely insight: fair Testing: Lab Results 07/23/17 07/23/17 07/23/17 Range/Units 22:15 22:15 22:15 WBC 9.0 (3.5-10.8) 10^3/ul RBC 2.62 L (4.0-5.4) 10^6/ul Hgb 8.9 L (12.0-16.0) g/dl Hct 27 L (35-47) % MCV 104 H (80-97) fL MCH 34 H (27-31) pg MCHC 33 (31-36) g/dl RDW 18 H (10.5-15) % Plt Count 414 (150-450) 10^3/ul MPV 7 L (7.4-10.4) um3 Neut % (Auto) 80.5 (38-83) % Lymph % (Auto) 8.2 L (25-47) % [place] % (Auto) 10.2 H (1-9) % Eos % (Auto) 0.2 (0-6) % Baso % (Auto) 0.9 (0-2) % Absolute Neuts (auto) 7.3 (1.5-7.7) 10^3/ul Absolute Lymphs (auto) 0.7 L (1.0-4.8) 10^3/ul Absolute Monos (auto) 0.9 H (0-0.8) 10^3/ul Absolute Eos (auto) 0 (0-0.6) 10^3/ul Absolute Basos (auto) 0.1 (0-0.2) 10^3/ul Absolute Nucleated RBC 0.03 10^3/ul Nucleated RBC % 0.3 INR (Anticoag Therapy) 4.01 H (0.89-1.11) APTT 28.1 (26.0-36.3) seconds Sodium 135 (133-145) mmol/L Potassium 2.3 L* (3.5-5.0) mmol/L Chloride 92 L (101-111) mmol/L Carbon Dioxide 32 (22-32) mmol/L Anion Gap 11 (2-11) mmol/L BUN 82 H (6-24) mg/dL Creatinine 2.07 H (0.51-0.95) mg/dL Est GFR ( Amer) 29.9 (>60) Est GFR (Non-Af Amer) 23.2 (>60) BUN/Creatinine Ratio 39.6 H (8-20) Glucose 121 H (70-100) mg/dL Lactic Acid (0.5-2.0) mmol/L Calcium 10.7 H (8.6-10.3) mg/dL Total Bilirubin 0.30 (0.2-1.0) mg/dL AST 29 (13-39) U/L ALT 16 (7-52) U/L Alkaline Phosphatase 87 (34-104) U/L Troponin I 0.10 H* (<0.04) ng/mL Total Protein 6.4 (6.4-8.9) g/dL Albumin 3.4 (3.2-5.2) g/dL Globulin 3.0 (2-4) g/dL Albumin/Globulin Ratio 1.1 (1-3) Urine Color Urine Appearance Urine pH (5-9) Ur Specific [place] (1.010-1.030) Urine Protein (Negative) Urine Ketones (Negative) Urine Blood (Negative) Urine Nitrate (Negative) Urine Bilirubin (Negative) Urine Urobilinogen (Negative) Ur Leukocyte Esterase (Negative) Urine WBC (Auto) (Absent) Urine RBC (Auto) (Absent) Urine Bacteria (Absent) Urine Glucose (Negative) Urine Ascorbic Acid (Negative) 07/23/17 07/23/17 07/24/17 Range/Units 22:15 22:50 02:31 WBC (3.5-10.8) 10^3/ul RBC (4.0-5.4) 10^6/ul Hgb (12.0-16.0) g/dl Hct (35-47) % MCV (80-97) fL MCH (27-31) pg MCHC (31-36) g/dl RDW (10.5-15) % Plt Count (150-450) 10^3/ul MPV (7.4-10.4) um3 Neut % (Auto) (38-83) % Lymph % (Auto) (25-47) % [place] % (Auto) (1-9) % Eos % (Auto) (0-6) % Baso % (Auto) (0-2) % Absolute Neuts (auto) (1.5-7.7) 10^3/ul Absolute Lymphs (auto) (1.0-4.8) 10^3/ul Absolute Monos (auto) (0-0.8) 10^3/ul Absolute Eos (auto) (0-0.6) 10^3/ul Absolute Basos (auto) (0-0.2) 10^3/ul Absolute Nucleated RBC 10^3/ul Nucleated RBC % INR (Anticoag Therapy) (0.89-1.11) APTT (26.0-36.3) seconds Sodium (133-145) mmol/L Potassium (3.5-5.0) mmol/L Chloride (101-111) mmol/L Carbon Dioxide (22-32) mmol/L Anion Gap (2-11) mmol/L BUN (6-24) mg/dL Creatinine (0.51-0.95) mg/dL Est GFR ( Amer) (>60) Est GFR (Non-Af Amer) (>60) BUN/Creatinine Ratio (8-20) Glucose (70-100) mg/dL Lactic Acid 1.3 1.8 (0.5-2.0) mmol/L Calcium (8.6-10.3) mg/dL Total Bilirubin (0.2-1.0) mg/dL AST (13-39) U/L ALT (7-52) U/L Alkaline Phosphatase (34-104) U/L Troponin I (<0.04) ng/mL Total Protein (6.4-8.9) g/dL Albumin (3.2-5.2) g/dL Globulin (2-4) g/dL Albumin/Globulin Ratio (1-3) Urine Color Yellow Urine Appearance Clear Urine pH 7.0 (5-9) Ur Specific [place] 1.009 L (1.010-1.030) Urine Protein Negative (Negative) Urine Ketones Negative (Negative) Urine Blood Negative (Negative) Urine Nitrate Negative (Negative) Urine Bilirubin Negative (Negative) Urine Urobilinogen Negative (Negative) Ur Leukocyte Esterase 2+ H (Negative) Urine WBC (Auto) Trace(0-5/hpf) (Absent) Urine RBC (Auto) Absent (Absent) Urine Bacteria Absent (Absent) Urine Glucose Negative (Negative) Urine Ascorbic Acid * H (Negative) 07/24/17 07/24/17 Range/Units 02:31 02:31 WBC (3.5-10.8) 10^3/ul RBC (4.0-5.4) 10^6/ul Hgb 8.8 L (12.0-16.0) g/dl Hct 27 L (35-47) % MCV (80-97) fL MCH (27-31) pg MCHC (31-36) g/dl RDW (10.5-15) % Plt Count (150-450) 10^3/ul MPV (7.4-10.4) um3 Neut % (Auto) (38-83) % Lymph % (Auto) (25-47) % [place] % (Auto) (1-9) % Eos % (Auto) (0-6) % Baso % (Auto) (0-2) % Absolute Neuts (auto) (1.5-7.7) 10^3/ul Absolute Lymphs (auto) (1.0-4.8) 10^3/ul Absolute Monos (auto) (0-0.8) 10^3/ul Absolute Eos (auto) (0-0.6) 10^3/ul Absolute Basos (auto) (0-0.2) 10^3/ul Absolute Nucleated RBC 10^3/ul Nucleated RBC % INR (Anticoag Therapy) (0.89-1.11) APTT (26.0-36.3) seconds Sodium (133-145) mmol/L Potassium (3.5-5.0) mmol/L Chloride (101-111) mmol/L Carbon Dioxide (22-32) mmol/L Anion Gap (2-11) mmol/L BUN (6-24) mg/dL Creatinine (0.51-0.95) mg/dL Est GFR ( Amer) (>60) Est GFR (Non-Af Amer) (>60) BUN/Creatinine Ratio (8-20) Glucose (70-100) mg/dL Lactic Acid (0.5-2.0) mmol/L Calcium (8.6-10.3) mg/dL Total Bilirubin (0.2-1.0) mg/dL AST (13-39) U/L ALT (7-52) U/L Alkaline Phosphatase (34-104) U/L Troponin I 0.11 H* (<0.04) ng/mL Total Protein (6.4-8.9) g/dL Albumin (3.2-5.2) g/dL Globulin (2-4) g/dL Albumin/Globulin Ratio (1-3) Urine Color Urine Appearance Urine pH (5-9) Ur Specific [place] (1.010-1.030) Urine Protein (Negative) Urine Ketones (Negative) Urine Blood (Negative) Urine Nitrate (Negative) Urine Bilirubin (Negative) Urine Urobilinogen (Negative) Ur Leukocyte Esterase (Negative) Urine WBC (Auto) (Absent) Urine RBC (Auto) (Absent) Urine Bacteria (Absent) Urine Glucose (Negative) Urine Ascorbic Acid (Negative) ECG, personally reviewed: ventricularly paced rhythme with frequent PVCs rate 88 CXR, personally reviewed: IMPRESSION: HYPOVENTILATION SMALL LEFT LUNG INFILTRATE. CT brain WO, personally reviewed: IMPRESSION: NO EVIDENCE FOR ACUTE INTRACRANIAL ABNORMALITY. ECHO (05/06/2017): Conclusions: Mild concentric left ventricular hypertrophy is observed. The estimated ejection fraction is 55-60%. Post surgical hypokinesis of the interventricular septum is observed consistent with valve replacement. The left atrium is moderate to severely dilated. Systolic excursion of the aortic valve cusps is reduced. There is mild aortic regurgitation. There is moderate aortic stenosis. There is posterior mitral annular calcification.There is a mobile echogenic lesion adjacent to the medial chordal structures: possible mobile chordae vs artifact or less likely vegetation. Consider clinical correlation and IGGY for further evaluation if indicated. There is a trace of mitral regurgitation. A bioprosthetic mitral valve is present. Appears to be functioning normally. There is moderate to severe tricuspid regurgitation. There is evidence of moderate pulmonary hypertension. There is trace to mild pulmonic regurgitation. Interval improvement in EF c/t 10/2015 when it was 40-45%. On direct comparison, the mobile lesion in the vicinity of medial chordal apparatus appears similar; given the stability of the findings , it is likely a mobile or ruptured chordae. Impression: 76F presenting after mechanical fall ? syncope on warfarin (super therapeutic), hypoKalemia, & elevated troponin DIAGNOSIS & PLAN Primary mechanical fall ? syncope : telemetry : social group worker consult for consideration of home health : supplemental oxygen : PT/OT evaluations : supportive care elevated troponin : suspect demand ischemia : telemetry & trend hypoKalemia : replace warfarin toxicity : 2.5mg vitamin K PO, recheck in AM Secondary rheumatoid arthritis aplastic anemia 2nd methotrexate 3rd degree AV block s/p pacer placement mitral valve repair, currently w/ moderate MR moderate TR moderate pHTN chronic diastolic HF AFIB CKD stg 4 HTN hypothyroidism GERD IBS, constipation dominant : review home medication list once reconciled Admission Rational: observation for fall ? syncope, hypoK, & elevated troponin DVTp: warfarin (on hold until INR down to therapeutic) Code Status: DNR, MOLST filled out HCP: son
[2017-07-24] MEDS: KCL 20 MEQ/100 ML IVPREMIX* 20 MEQ/100 ML BAG IV SCH ×2 (05:57→09:20)
[2017-07-24] MEDS: Omeprazole CAP* 20 MG PO SCH (06:01)
[2017-07-24 06:07] LABS: Hematocrit 24 % (35-47); Hemoglobin 7.6 g/dl (12.0-16.0); Mean Corpuscular HGB Conc 32 g/dl (31-36); Mean Corpuscular Hemoglobin 34 pg (27-31); Mean Corpuscular Volume 105 fL (80-97); Mean Platelet Volume 8 um3 (7.4-10.4); Red Blood Count 2.25 10^6/ul (4.0-5.4); Red Cell Distribution Width 18 % (10.5-15); White Blood Count 11.7 10^3/ul (3.5-10.8)
[2017-07-24 06:33] LABS: BUN/Creatinine Ratio 40.1 (8-20); Calcium 10.2 mg/dL (8.6-10.3); EGFR African American 31.6 (>60); EGFR Non-African American 24.6 (>60)
[2017-07-24 06:51] LABS: Potassium 2.3 mmol/L (3.5-5.0); Troponin I 0.11 ng/mL (<0.04)
[2017-07-24] MEDS ORDERED: Potassium Chlor TAB* 20 MEQ TAB.ER PO ONE ×2 (08:45→19:52)
[2017-07-24] MEDS: Docusate CAP* 100 MG PO SCH ×2 (09:20→22:02)
--- NOTE | 2017-07-24 17:02 | PN ---
Subjective Date of Service: 07/24/17 Interval History: Patient seen and examined at bedside. Pt states that she is feeling better today. Denies fever, chills, dizziness or lightheadedness, shortness of breath, chest discomfort, N/V/D. Pt does report 1 episode of vomiting last night. Tele: Paced, rate 60's Family History: Unchanged from Admission Social History: Unchanged from Admission Past Medical History: Unchanged from Admission Objective Active Medications: Acetaminophen (Tylenol Tab*) 650 mg PO Q6H PRN Reason: FEVER/PAIN Albuterol (Ventolin 2.5 Mg/3 Ml Neb.Rika*) 2.5 mg INH Q2H PRN Reason: SOB/ WHEEZING Docusate Sodium (Colace Cap*) 200 mg PO BID [facility] Sodium Chloride (Ns 0.9% 1000 Ml*) 1,000 mls @ 85 mls/hr IV PER RATE [facility] Melatonin (Melatonin (Nf)) 3 mg PO BEDTIME PRN; Protocol Reason: Sleep Omeprazole (Prilosec Cap*) 20 mg PO DAILY@0600 [facility] Vital Signs 07/23/17 07/23/17 07/24/17 23:30 23:42 00:35 Temperature 98 F Pulse Rate 70 70 Respiratory 16 20 20 Rate Blood Pressure 101/40 113/57 (mmHg) O2 Sat by Pulse 99 100 Oximetry 07/24/17 07/24/17 07/24/17 05:23 05:25 07:56 Temperature 98.5 F 98.5 F 98.3 F Pulse Rate 69 69 70 Respiratory 16 16 16 Rate Blood Pressure 111/46 111/46 125/44 (mmHg) O2 Sat by Pulse 97 97 100 Oximetry 07/24/17 07/24/17 07/24/17 08:00 11:45 11:47 Temperature 99.3 F 99.3 F Pulse Rate 69 73 Respiratory 16 16 16 Rate Blood Pressure 133/67 133/67 (mmHg) O2 Sat by Pulse 100 100 Oximetry 07/24/17 15:51 Temperature 98.1 F Pulse Rate 54 Respiratory 18 Rate Blood Pressure 139/55 (mmHg) O2 Sat by Pulse 97 Oximetry Oxygen Devices in Use Now: None Appearance: NAD, laying in bed Respiratory: Symmetrical Chest Expansion and Respiratory Effort, Clear to Auscultation Cardiovascular: NL Sounds; No Murmurs; No JVD, RRR Abdominal: NL Sounds; No Tenderness; No Distention Extremities: No Edema Skin: No Rash or Ulcers Neurological: Alert and Oriented x 3, NL Muscle Strength and Tone Lines/Tubes/Other Access: Clean, Dry and Intact Peripheral IV - site benign Nutrition: Taking PO's Result Diagrams: 07/24/17 04:56 07/24/17 14:26 Additional Lab and Data: Assess/Plan/Problems-Billing Assessment: Ms. Mike is a 76 yo female with PMH significant for RA, aplastic anemia, chronic diastolic HF, CKD, HTN, GERD, hypothyroidism and IBS who presented to the emergency room with complaints of a fall and possible syncope on warfarin. - Patient Problems (1) Dizziness Code(s): R42 - DIZZINESS AND GIDDINESS SNOMED Code(s): 777755133 Comment: - ? mechanical fall vs syncope - PT/OT - Supportive care (2) Elevated troponin Code(s): R74.8 - ABNORMAL LEVELS OF OTHER SERUM ENZYMES SNOMED Code(s): 975362129 Comment: - Troponin 0.10, 0.11, 0.11 - Suspect demand ischemia (3) Hypokalemia Code(s): E87.6 - HYPOKALEMIA SNOMED Code(s): 43258901 Comment: - Will give replacement and continue to monitor (4) Warfarin toxicity Code(s): T45.511A - POISONING BY ANTICOAGULANTS, ACCIDENTAL, INIT SNOMED Code( s): 03447464 Comment: - INR continues to be supratherapeutic - Will give another dose of vit K today and recheck INR in AM (5) Diastolic heart failure Code(s): I50.30 - UNSPECIFIED DIASTOLIC (CONGESTIVE) HEART FAILURE SNOMED Code (s): 455904589 Comment: - No sign of exacerbation at this time - Strict I+O's and daily weights - Hold furosemide and give cautious IVFs (6) CKD (chronic kidney disease) Code(s): N18.9 - CHRONIC KIDNEY DISEASE, UNSPECIFIED SNOMED Code(s): 315432961 Comment: - Stage 4 - Near baseline (7) Atrial fibrillation Code(s): I48.91 - UNSPECIFIED ATRIAL FIBRILLATION SNOMED Code(s): 07144640 Comment: - Not on BB. Rate controlled. - Hold warfarin, INR supratherapeutic (8) Hypertension Code(s): I10 - ESSENTIAL (PRIMARY) HYPERTENSION SNOMED Code(s): 04087615 Comment: - Normotensive (9) Rheumatoid arthritis Code(s): M06.9 - RHEUMATOID ARTHRITIS, UNSPECIFIED SNOMED Code(s): 26118234 Comment: - Contiune home plaquenil (10) Hypothyroidism Code(s): E03.9 - HYPOTHYROIDISM, UNSPECIFIED SNOMED Code(s): 63086128 Comment: - Continue levothyroxine (11) DVT prophylaxis Code(s): CAY2499 - SNOMED Code(s): 925871757 Comment: - INR supratherapeutic at this time - Resume Warfarin once INR therapeutic (12) DNR (do not resuscitate) Status and Disposition: Inpatient. Discharge to home when medically stable.
[2017-07-24 18:51] LABS: BUN/Creatinine Ratio 38.3 (8-20); Calcium 9.9 mg/dL (8.6-10.3); EGFR African American 35.1 (>60); EGFR Non-African American 27.3 (>60); Magnesium 2.3 mg/dL (1.9-2.7)
[2017-07-24] MEDS ORDERED: Phytonadione Oral Solution* 5 MG/25 ML UDC PO ONE (22:58)
[2017-07-24] MEDS ORDERED: traMADol TAB* 50 MG PO PRN (23:03)
[2017-07-25] MEDS: NS 0.9% 1000 ML* 1,000 ML IV SCH ×2 (03:30→15:39)
[2017-07-25] MEDS: Omeprazole CAP* 20 MG PO SCH (05:32)
[2017-07-25] MEDS: Levothyroxine TAB* 125 MCG TAB PO SCH (05:32)
[2017-07-25 06:13] LABS: BUN/Creatinine Ratio 39.6 (8-20); Calcium 9.7 mg/dL (8.6-10.3); EGFR African American 45.4 (>60); EGFR Non-African American 35.3 (>60); Potassium 3.4 mmol/L (3.5-5.0)
[2017-07-25] MEDS: Docusate CAP* 100 MG PO SCH ×2 (09:51→23:03)
[2017-07-25] MEDS: Folic Acid TAB* 1 MG PO SCH (09:52)
[2017-07-25] MEDS: Hydroxychloroquine TAB* 200 MG PO SCH (09:52)
[2017-07-25] MEDS: Ferrous Gluconate TAB* 324 MG TAB PO SCH ×2 (09:52→23:06)
[2017-07-25] MEDS: Famotidine TAB* 20 MG PO SCH (09:52)
[2017-07-25] MEDS: Potassium Chlor TAB* 10 MEQ TAB.ER PO SCH (09:52)
[2017-07-25] MEDS ORDERED: Potassium Chlor TAB* 20 MEQ TAB.ER PO ONE (16:49)
[2017-07-25] MEDS ORDERED: Furosemide IV* 10 MG/ML VIAL (40 MG) IV ONE (16:56)
--- NOTE | 2017-07-25 17:13 | PN ---
Subjective Date of Service: 07/25/17 Interval History: Pt is feeling ok but per her family member she has been c/o SOB today. No cough. She denies any pain. Family History: Unchanged from Admission Social History: Unchanged from Admission Past Medical History: Unchanged from Admission Objective Active Medications: Acetaminophen (Tylenol Tab*) 650 mg PO Q6H PRN PRN Reason: FEVER/PAIN Albuterol (Ventolin 2.5 Mg/3 Ml Neb.Rika*) 2.5 mg INH Q2H PRN PRN Reason: SOB/WHEEZING Docusate Sodium (Colace Cap*) 200 mg PO BID [facility] Last Admin: 07/25/17 09:51 Dose: 200 mg Donepezil HCl (Aricept Tab*) 10 mg PO QPM [facility] Famotidine (Pepcid Tab*) 40 mg PO DAILY [facility] Last Admin: 07/25/17 09:52 Dose: 40 mg Ferrous Gluconate (Fergon Tab*) 324 mg PO BID [facility] Last Admin: 07/25/17 09:52 Dose: 324 mg Folic Acid (Folvite Tab*) 1 mg PO DAILY [facility] Last Admin: 07/25/17 09:52 Dose: 1 mg Hydroxychloroquine Sulfate (Plaquenil Tab*) 200 mg PO DAILY [facility] Last Admin: 07/25/17 09:52 Dose: 200 mg Levothyroxine Sodium (Synthroid Tab*) 125 mcg PO DAILY@0600 [facility] Last Admin: 07/25/17 05:32 Dose: 125 mcg Melatonin (Melatonin (Nf)) 3 mg PO BEDTIME PRN; Protocol PRN Reason: Sleep Last Admin: 07/24/17 22:05 Dose: 3 mg Omeprazole (Prilosec Cap*) 20 mg PO DAILY@0600 [facility] Last Admin: 07/25/17 05:32 Dose: 20 mg Potassium Chloride (Klor Con Er Tab*) 30 meq PO DAILY [facility] Last Admin: 07/25/17 09:52 Dose: 30 meq Quetiapine Fumarate (Seroquel Tab*) 12.5 mg PO BEDTIME [facility] Tramadol HCl (Ultram*) 50 mg PO TID PRN PRN Reason: PAIN Warfarin Sodium (Coumadin Tab(*)) 4 mg PO DAILY@1700 [facility] PRN Reason: Protocol Vital Signs 07/24/17 07/24/17 07/25/17 20:15 20:45 00:08 Temperature 98.0 F 97.5 F Pulse Rate 70 69 Respiratory 18 18 16 Rate Blood Pressure 136/51 144/72 (mmHg) O2 Sat by Pulse 100 99 Oximetry 07/25/17 07/25/17 07/25/17 04:24 07:47 07:50 Temperature 98.1 F 98.2 F Pulse Rate 29 43 Respiratory 16 20 Rate Blood Pressure 137/58 134/68 (mmHg) O2 Sat by Pulse 98 95 98 Oximetry 07/25/17 07/25/17 07/25/17 07:51 08:00 11:38 Temperature 98.5 F Pulse Rate 70 84 Respiratory 16 20 20 Rate Blood Pressure 123/51 (mmHg) O2 Sat by Pulse 98 78 Oximetry 07/25/17 15:22 Temperature 97.6 F Pulse Rate 70 Respiratory 16 Rate Blood Pressure 143/86 (mmHg) O2 Sat by Pulse 100 Oximetry Oxygen Devices in Use Now: None Appearance: Elderly female sitting up in bed, NAD Eyes: No Scleral Icterus Ears/Nose/Mouth/Throat: Mucous Membranes Moist Respiratory: Symmetrical Chest Expansion and Respiratory Effort, - - mild crackles at the bases Cardiovascular: NL Sounds; No Murmurs; No JVD, RRR, No Edema Abdominal: NL Sounds; No Tenderness; No Distention Extremities: No Clubbing, Cyanosis, - - L hypoplastic UE Skin: No Rash or Ulcers, No Nodules or Sclerosis Neurological: - - moderately confused Result Diagrams: 07/24/17 04:56 07/25/17 05:46 Additional Lab and Data: Assess/Plan/Problems-Billing Ms. Mike is a 76 yo female with PMHx significant for RA, aplastic anemia, chronic diastolic HF, CKD, HTN, GERD, hypothyroidism and IBS who presented to the emergency room with complaints of a fall and possible syncope on warfarin. - Patient Problems (1) Dizziness Current Visit: Yes Status: Acute Code(s): R42 - DIZZINESS AND GIDDINESS SNOMED Code(s): 620888521 Comment: Unclear why she fell. Pt may need STR per PT. (2) Warfarin toxicity Current Visit: Yes Status: Acute Code(s): T45.511A - POISONING BY ANTICOAGULANTS, ACCIDENTAL, INIT SNOMED Code(s): 82465027 Comment: INR now subtherapeutic. (3) Atrial fibrillation Current Visit: Yes Status: Chronic Code(s): I48.91 - UNSPECIFIED ATRIAL FIBRILLATION SNOMED Code(s): 35024170 Comment: Rate controlled off any meds. INR now subtherapeutic. Will give coumadin 4mg today and recheck INR tomorrow. (4) CKD (chronic kidney disease) Current Visit: Yes Status: Chronic Code(s): N18.9 - CHRONIC KIDNEY DISEASE, UNSPECIFIED SNOMED Code(s): 268542736 Comment: Creatinine is improving. Monitor after IV lasix. (5) Diastolic heart failure Current Visit: No Status: Chronic Code(s): I50.30 - UNSPECIFIED DIASTOLIC ( CONGESTIVE) HEART FAILURE SNOMED Code(s): 807373220 Comment: Stop IVF. Few crackles on exam. Will give lasix 40mg IV x1 now. (6) Hypertension Current Visit: Yes Status: Chronic Priority: Medium Code(s): I10 - ESSENTIAL (PRIMARY) HYPERTENSION SNOMED Code(s): 30379811 Comment: BP is under fair control not on any medications. Monitor. (7) Hypothyroidism Current Visit: Yes Status: Chronic Code(s): E03.9 - HYPOTHYROIDISM, UNSPECIFIED SNOMED Code(s): 38157697 Comment: Continue levothyroxine. (8) Rheumatoid arthritis Current Visit: Yes Status: Chronic Code(s): M06.9 - RHEUMATOID ARTHRITIS, UNSPECIFIED SNOMED Code(s): 30951547 Comment: Contiune home plaquenil (9) DVT prophylaxis Current Visit: Yes Status: Acute Code(s): LNN2177 - SNOMED Code(s): 553242420 Comment: Start back coumadin (10) DNR (do not resuscitate) Current Visit: Yes Status: Acute Status and Disposition: .
[2017-07-25] MEDS: Donepezil TAB* 5 MG PO SCH (17:46)
[2017-07-25] MEDS: Warfarin TAB(*) 4 MG PO SCH (17:47)
[2017-07-25] MEDS: QUEtiapine TAB* 25 MG PO SCH (23:05)
[2017-07-26 05:33] LABS: Hematocrit 25 % (35-47); Hemoglobin 7.8 g/dl (12.0-16.0); Mean Corpuscular HGB Conc 31 g/dl (31-36); Mean Corpuscular Hemoglobin 33 pg (27-31); Mean Platelet Volume 8 um3 (7.4-10.4); Red Blood Count 2.35 10^6/ul (4.0-5.4); Red Cell Distribution Width 17 % (10.5-15); White Blood Count 12.8 10^3/ul (3.5-10.8)
[2017-07-26 05:36] LABS: Comments Flag Yes; Mean Corpuscular Volume 106 fL (80-97)
[2017-07-26 05:48] LABS: BUN/Creatinine Ratio 31.9 (8-20); Calcium 9.3 mg/dL (8.6-10.3); EGFR African American 48.9 (>60); Potassium 3.1 mmol/L (3.5-5.0)
[2017-07-26] MEDS: Levothyroxine TAB* 125 MCG TAB PO SCH (06:07)
[2017-07-26] MEDS: Omeprazole CAP* 20 MG PO SCH (06:07)
[2017-07-26] MEDS: Docusate CAP* 100 MG PO SCH ×2 (10:12→21:59)
[2017-07-26] MEDS: Hydroxychloroquine TAB* 200 MG PO SCH (10:13)
[2017-07-26] MEDS: Ferrous Gluconate TAB* 324 MG TAB PO SCH ×2 (10:13→21:59)
[2017-07-26] MEDS: Famotidine TAB* 20 MG PO SCH (10:13)
[2017-07-26] MEDS: Potassium Chlor TAB* 10 MEQ TAB.ER PO SCH (10:13)
[2017-07-26] MEDS: Folic Acid TAB* 1 MG PO SCH (10:13)
[2017-07-26] MEDS ORDERED: Furosemide TAB* 40 MG PO ONE (13:36)
[2017-07-26] MEDS ORDERED: Furosemide TAB* 40 MG PO SCH (14:00)
--- NOTE | 2017-07-26 14:01 | RAD ---
HISTORY: Shortness of breath COMPARISONS: July 15, 2017 VIEWS: 1: frontal portable view of the chest at 1:40 PM FINDINGS: LINES AND TUBES: January right-sided pacemaker is noted CARDIOMEDIASTINAL SILHOUETTE: The cardiac silhouette is mildly enlarged. The cardiomediastinal silhouette is otherwise normal for portable technique. PLEURA: The costophrenic angles are sharp. No pleural abnormalities are noted. LUNG PARENCHYMA: There is persistent but somewhat improved patchy opacification of the left lung base ABDOMEN: The upper abdomen is clear. There is no subphrenic gas. BONES AND SOFT TISSUES: The patient is status post median sternotomy. IMPRESSION: PERSISTENT BUT SOMEWHAT IMPROVED LEFT BASILAR ATELECTASIS VERSUS CONSOLIDATION
[2017-07-26] MEDS: Potassium Chlor TAB* 20 MEQ TAB.ER PO SCH ×2 (15:35→22:01)
[2017-07-26] MEDS: Donepezil TAB* 5 MG PO SCH ×2 (16:38→17:32)
[2017-07-26] MEDS: Warfarin TAB(*) 4 MG PO SCH (16:38)
--- NOTE | 2017-07-26 18:19 | PN ---
Subjective Date of Service: 07/26/17 Interval History: Patient states that she is not feeling very good and that she is fatigued. Patient denies any dizziness, lightheadedness, N/V, CP, SOB, Abdominal Pain, Diarrhea, Constipation, bloody stools or melena. Family History: Unchanged from Admission Social History: Unchanged from Admission Past Medical History: Unchanged from Admission Objective Active Medications: Acetaminophen (Tylenol Tab*) 650 mg PO Q6H PRN PRN Reason: FEVER/PAIN Albuterol (Ventolin 2.5 Mg/3 Ml Neb.Rika*) 2.5 mg INH Q2H PRN PRN Reason: SOB/WHEEZING Docusate Sodium (Colace Cap*) 200 mg PO BID [facility] Last Admin: 07/26/17 10:12 Dose: 200 mg Donepezil HCl (Aricept Tab*) 10 mg PO QPM [facility] Last Admin: 07/26/17 17:32 Dose: 10 mg Famotidine (Pepcid Tab*) 40 mg PO DAILY [facility] Last Admin: 07/26/17 10:13 Dose: 40 mg Ferrous Gluconate (Fergon Tab*) 324 mg PO BID [facility] Last Admin: 07/26/17 10:13 Dose: 324 mg Folic Acid (Folvite Tab*) 1 mg PO DAILY [facility] Last Admin: 07/26/17 10:13 Dose: 1 mg Hydroxychloroquine Sulfate (Plaquenil Tab*) 200 mg PO DAILY [facility] Last Admin: 07/26/17 10:13 Dose: 200 mg Levothyroxine Sodium (Synthroid Tab*) 125 mcg PO DAILY@0600 [facility] Last Admin: 07/26/17 06:07 Dose: 125 mcg Melatonin (Melatonin (Nf)) 3 mg PO BEDTIME PRN; Protocol PRN Reason: Sleep Last Admin: 07/24/17 22:05 Dose: 3 mg Omeprazole (Prilosec Cap*) 20 mg PO DAILY@0600 [facility] Last Admin: 07/26/17 06:07 Dose: 20 mg Potassium Chloride (Klor Con Er Tab*) 20 meq PO TID [facility] Last Admin: 07/26/17 15:35 Dose: 20 meq Quetiapine Fumarate (Seroquel Tab*) 12.5 mg PO BEDTIME [facility] Last Admin: 07/25/17 23:05 Dose: 12.5 mg Tramadol HCl (Ultram*) 50 mg PO TID PRN PRN Reason: PAIN Warfarin Sodium (Coumadin Tab(*)) 4 mg PO DAILY@1700 [facility] PRN Reason: Protocol Last Admin: 07/26/17 16:38 Dose: 4 mg Vital Signs 07/25/17 07/25/17 07/25/17 19:30 20:06 23:28 Temperature 98.5 F 98.2 F Pulse Rate 55 69 Respiratory 18 26 28 Rate Blood Pressure 110/46 117/44 (mmHg) O2 Sat by Pulse 96 97 Oximetry 07/26/17 07/26/17 00:56 03:01 Temperature 97.8 F Pulse Rate 64 72 Respiratory 22 28 Rate Blood Pressure 125/60 (mmHg) O2 Sat by Pulse 94 97 Oximetry Oxygen Devices in Use Now: None Appearance: Patient is a 76yo female who appears stated age and is sitting anxiously in her chair in mild distress. Eyes: No Scleral Icterus, PERRLA Ears/Nose/Mouth/Throat: Clear Oropharnyx, Mucous Membranes Moist, - - Patient's lips appear slightly blue. Neck: NL Appearance and Movements; NL JVP, Trachea Midline Respiratory: Symmetrical Chest Expansion and Respiratory Effort, - - Slight crackles in the bilateral lower lobes. Cardiovascular: NL Sounds; No Murmurs; No JVD, RRR, No Edema Abdominal: NL Sounds; No Tenderness; No Distention, No Hepatosplenomegaly Lymphatic: No Cervical Adenopathy Extremities: No Edema Skin: No Rash or Ulcers, No Nodules or Sclerosis Neurological: Alert and Oriented x 3, NL Gait Result Diagrams: 07/26/17 05:13 07/26/17 05:13 Additional Lab and Data: 07/23/17 07/23/17 07/23/17 22:15 22:15 22:15 WBC 9.0 RBC 2.62 L Hgb 8.9 L Hct 27 L MCV 104 H MCH 34 H MCHC 33 RDW 18 H Plt Count 414 MPV 7 L Neut % (Auto) 80.5 Lymph % (Auto) 8.2 L [place] % (Auto) 10.2 H Eos % (Auto) 0.2 Baso % (Auto) 0.9 Absolute Neuts (auto) 7.3 Absolute Lymphs (auto) 0.7 L Absolute Monos (auto) 0.9 H Absolute Eos (auto) 0 Absolute Basos (auto) 0.1 Absolute Nucleated RBC 0.03 Nucleated RBC % 0.3 INR (Anticoag Therapy) 4.01 H APTT 28.1 Sodium 135 Potassium 2.3 L* Chloride 92 L Carbon Dioxide 32 Anion Gap 11 BUN 82 H Creatinine 2.07 H Est GFR ( Amer) 29.9 Est GFR (Non-Af Amer) 23.2 BUN/Creatinine Ratio 39.6 H Glucose 121 H Lactic Acid Calcium 10.7 H Magnesium Total Bilirubin 0.30 AST 29 ALT 16 Alkaline Phosphatase 87 Troponin I 0.10 H* Total Protein 6.4 Albumin 3.4 Globulin 3.0 Albumin/Globulin Ratio 1.1 Urine Color Urine Appearance Urine pH Ur Specific [place] Urine Protein Urine Ketones Urine Blood Urine Nitrate Urine Bilirubin Urine Urobilinogen Ur Leukocyte Esterase Urine WBC (Auto) Urine RBC (Auto) Urine Bacteria Urine Glucose Urine Ascorbic Acid 07/23/17 07/23/17 07/24/17 22:15 22:50 02:31 WBC RBC Hgb Hct MCV MCH MCHC RDW Plt Count MPV Neut % (Auto) Lymph % (Auto) [place] % (Auto) Eos % (Auto) Baso % (Auto) Absolute Neuts (auto) Absolute Lymphs (auto) Absolute Monos (auto) Absolute Eos (auto) Absolute Basos (auto) Absolute Nucleated RBC Nucleated RBC % INR (Anticoag Therapy) APTT Sodium Potassium Chloride Carbon Dioxide Anion Gap BUN Creatinine Est GFR ( Amer) Est GFR (Non-Af Amer) BUN/Creatinine Ratio Glucose Lactic Acid 1.3 1.8 Calcium Magnesium Total Bilirubin AST ALT Alkaline Phosphatase Troponin I Total Protein Albumin Globulin Albumin/Globulin Ratio Urine Color Yellow Urine Appearance Clear Urine pH 7.0 Ur Specific [place] 1.009 L Urine Protein Negative Urine Ketones Negative Urine Blood Negative Urine Nitrate Negative Urine Bilirubin Negative Urine Urobilinogen Negative Ur Leukocyte Esterase 2+ H Urine WBC (Auto) Trace(0-5/hpf) Urine RBC (Auto) Absent Urine Bacteria Absent Urine Glucose Negative Urine Ascorbic Acid * H 07/24/17 07/24/17 07/24/17 02:31 02:31 04:56 WBC 11.7 H RBC 2.25 L Hgb 8.8 L 7.6 L Hct 27 L 24 L MCV 105 H MCH 34 H MCHC 32 RDW 18 H Plt Count 368 MPV 8 Neut % (Auto) Lymph % (Auto) [place] % (Auto) Eos % (Auto) Baso % (Auto) Absolute Neuts (auto) Absolute Lymphs (auto) Absolute Monos (auto) Absolute Eos (auto) Absolute Basos (auto) Absolute Nucleated RBC Nucleated RBC % INR (Anticoag Therapy) APTT Sodium Potassium Chloride Carbon Dioxide Anion Gap BUN Creatinine Est GFR ( Amer) Est GFR (Non-Af Amer) BUN/Creatinine Ratio Glucose Lactic Acid Calcium Magnesium Total Bilirubin AST ALT Alkaline Phosphatase Troponin I 0.11 H* Total Protein Albumin Globulin Albumin/Globulin Ratio Urine Color Urine Appearance Urine pH Ur Specific [place] Urine Protein Urine Ketones Urine Blood Urine Nitrate Urine Bilirubin Urine Urobilinogen Ur Leukocyte Esterase Urine WBC (Auto) Urine RBC (Auto) Urine Bacteria Urine Glucose Urine Ascorbic Acid 07/24/17 07/24/17 07/24/17 04:56 04:56 14:26 WBC RBC Hgb Hct MCV MCH MCHC RDW Plt Count MPV Neut % (Auto) Lymph % (Auto) [place] % (Auto) Eos % (Auto) Baso % (Auto) Absolute Neuts (auto) Absolute Lymphs (auto) Absolute Monos (auto) Absolute Eos (auto) Absolute Basos (auto) Absolute Nucleated RBC Nucleated RBC % INR (Anticoag Therapy) 3.45 H APTT Sodium 138 137 Potassium 2.3 L* 3.0 L Chloride 97 L 101 Carbon Dioxide 28 25 Anion Gap 13 H 11 BUN 79 H 69 H Creatinine 1.97 H 1.80 H Est GFR ( Amer) 31.6 35.1 Est GFR (Non-Af Amer) 24.6 27.3 BUN/Creatinine Ratio 40.1 H 38.3 H Glucose 96 131 H Lactic Acid Calcium 10.2 9.9 Magnesium 2.3 Total Bilirubin AST ALT Alkaline Phosphatase Troponin I 0.11 H* Total Protein Albumin Globulin Albumin/Globulin Ratio Urine Color Urine Appearance Urine pH Ur Specific [place] Urine Protein Urine Ketones Urine Blood Urine Nitrate Urine Bilirubin Urine Urobilinogen Ur Leukocyte Esterase Urine WBC (Auto) Urine RBC (Auto) Urine Bacteria Urine Glucose Urine Ascorbic Acid 07/25/17 07/25/17 07/26/17 05:46 05:46 05:13 WBC RBC Hgb Hct MCV MCH MCHC RDW Plt Count MPV Neut % (Auto) Lymph % (Auto) [place] % (Auto) Eos % (Auto) Baso % (Auto) Absolute Neuts (auto) Absolute Lymphs (auto) Absolute Monos (auto) Absolute Eos (auto) Absolute Basos (auto) Absolute Nucleated RBC Nucleated RBC % INR (Anticoag Therapy) 1.46 H APTT Sodium 140 138 Potassium 3.4 L 3.1 L Chloride 106 106 Carbon Dioxide 25 23 Anion Gap 9 9 BUN 57 H 43 H Creatinine 1.44 H 1.35 H Est GFR ( Amer) 45.4 48.9 Est GFR (Non-Af Amer) 35.3 38.0 BUN/Creatinine Ratio 39.6 H 31.9 H Glucose 102 H 96 Lactic Acid Calcium 9.7 9.3 Magnesium Total Bilirubin AST ALT Alkaline Phosphatase Troponin I Total Protein Albumin Globulin Albumin/Globulin Ratio Urine Color Urine Appearance Urine pH Ur Specific [place] Urine Protein Urine Ketones Urine Blood Urine Nitrate Urine Bilirubin Urine Urobilinogen Ur Leukocyte Esterase Urine WBC (Auto) Urine RBC (Auto) Urine Bacteria Urine Glucose Urine Ascorbic Acid 07/26/17 07/26/17 05:13 05:13 WBC 12.8 H RBC 2.35 L Hgb 7.8 L Hct 25 L MCV 106 H MCH 33 H MCHC 31 RDW 17 H Plt Count 307 MPV 8 Neut % (Auto) Lymph % (Auto) [place] % (Auto) Eos % (Auto) Baso % (Auto) Absolute Neuts (auto) Absolute Lymphs (auto) Absolute Monos (auto) Absolute Eos (auto) Absolute Basos (auto) Absolute Nucleated RBC Nucleated RBC % INR (Anticoag Therapy) 1.26 H APTT Sodium Potassium Chloride Carbon Dioxide Anion Gap BUN Creatinine Est GFR ( Amer) Est GFR (Non-Af Amer) BUN/Creatinine Ratio Glucose Lactic Acid Calcium Magnesium Total Bilirubin AST ALT Alkaline Phosphatase Troponin I Total Protein Albumin Globulin Albumin/Globulin Ratio Urine Color Urine Appearance Urine pH Ur Specific [place] Urine Protein Urine Ketones Urine Blood Urine Nitrate Urine Bilirubin Urine Urobilinogen Ur Leukocyte Esterase Urine WBC (Auto) Urine RBC (Auto) Urine Bacteria Urine Glucose Urine Ascorbic Acid Assess/Plan/Problems-Billing Ms. Mike is a 76 yo female with PMHx significant for RA, aplastic anemia, chronic diastolic HF, CKD, HTN, GERD, hypothyroidism and IBS who presented to the emergency room with complaints of a fall and possible syncope on warfarin who is SOB possibly due to fluid overload. - Patient Problems (1) Dizziness Current Visit: Yes Status: Acute Code(s): R42 - DIZZINESS AND GIDDINESS SNOMED Code(s): 319677637 Comment: Unclear why she fell. Pt may need STR per PT. (2) Elevated troponin Current Visit: Yes Status: Acute Code(s): R74.8 - ABNORMAL LEVELS OF OTHER SERUM ENZYMES SNOMED Code(s): 022009132 Comment: Troponin 0.10, 0.11, 0.11 Suspect demand ischemia (3) Hypokalemia Current Visit: Yes Status: Acute Code(s): E87.6 - HYPOKALEMIA SNOMED Code( s): 28773333 Comment: Most recently at 3.1, will increase potassium replacement to 20meq TID and recheck in morning. (4) Warfarin toxicity Current Visit: Yes Status: Acute Code(s): T45.511A - POISONING BY ANTICOAGULANTS, ACCIDENTAL, INIT SNOMED Code(s): 23486397 Comment: INR now subtherapeutic. (5) Atrial fibrillation Current Visit: Yes Status: Chronic Code(s): I48.91 - UNSPECIFIED ATRIAL FIBRILLATION SNOMED Code(s): 99605796 Comment: Rate controlled off any meds. INR still subtherapeutic. Will give coumadin 4mg today and recheck INR tomorrow. (6) CKD (chronic kidney disease) Current Visit: Yes Status: Chronic Code(s): N18.9 - CHRONIC KIDNEY DISEASE, UNSPECIFIED SNOMED Code(s): 122872638 Comment: Creatinine is still improving. Continue to monitor after lasix (7) Hypertension Current Visit: Yes Status: Chronic Priority: Medium Code(s): I10 - ESSENTIAL (PRIMARY) HYPERTENSION SNOMED Code(s): 48505795 Comment: BP is under good control not on any medications. Monitor. (8) Hypothyroidism Current Visit: Yes Status: Chronic Code(s): E03.9 - HYPOTHYROIDISM, UNSPECIFIED SNOMED Code(s): 92447143 Comment: Continue levothyroxine. (9) Diastolic heart failure Current Visit: No Status: Chronic Code(s): I50.30 - UNSPECIFIED DIASTOLIC ( CONGESTIVE) HEART FAILURE SNOMED Code(s): 031638152 Comment: Few crackles on exam. Will give lasix 40mg PO x1 now. (10) Anemia Current Visit: Yes Status: Acute Code(s): D64.9 - ANEMIA, UNSPECIFIED SNOMED Code(s): 322073895 Comment: Patient has a history of aplastic anemia, but this does not look to be directly responsible for current anemia. Outpatient studies from 06/17 shows high TSH, normal B12, High Iron, High TIBC and High EPO. Will order repeat TSH in morning , will consider Hematology consult. (11) DVT prophylaxis Current Visit: Yes Status: Acute Code(s): FVJ7151 - SNOMED Code(s): 219044891 Comment: Start back coumadin (12) DNR (do not resuscitate) Current Visit: Yes Status: Acute Status and Disposition: Admitted inpatient. Will discharge either to [facility] or home with extra help when able.
[2017-07-26] MEDS: QUEtiapine TAB* 25 MG PO SCH (22:02)
[2017-07-27] MEDS: Levothyroxine TAB* 125 MCG TAB PO SCH (05:42)
[2017-07-27] MEDS: Omeprazole CAP* 20 MG PO SCH (05:42)
[2017-07-27 06:36] LABS: Anion Gap 9 mmol/L (2-11); BUN/Creatinine Ratio 26.8 (8-20); Blood Urea Nitrogen 38 mg/dL (6-24); CO2 Carbon Dioxide 23 mmol/L (22-32); Calcium 9.2 mg/dL (8.6-10.3); Chloride 106 mmol/L (101-111); EGFR African American 46.1 (>60); EGFR Non-African American 35.9 (>60); Glucose 93 mg/dL (70-100); Potassium 3.6 mmol/L (3.5-5.0); Sodium 138 mmol/L (133-145)
[2017-07-27 06:55] LABS: Corrected Retic Count 4.2 % (0.5-1.5); Hematocrit 27 % (35-47); Hemoglobin 8.4 g/dl (12.0-16.0); Immature Retic Fraction 0.62; Mean Corpuscular HGB Conc 31 g/dl (31-36); Mean Corpuscular Hemoglobin 33 pg (27-31); Mean Corpuscular Volume 106 fL (80-97); Mean Platelet Volume 8 um3 (7.4-10.4); Red Blood Count 2.51 10^6/ul (4.0-5.4); Red Cell Distribution Width 17 % (10.5-15); White Blood Count 11.6 10^3/ul (3.5-10.8)
[2017-07-27 06:57] LABS: Comments Flag Yes
[2017-07-27 07:02] LABS: TSH (Thyroid Stimulating Horm) 1.48 mcIU/mL (0.34-5.60)
[2017-07-27] MEDS ORDERED: Furosemide TAB* 20 MG PO ONE (08:41)
[2017-07-27] MEDS: Ferrous Gluconate TAB* 324 MG TAB PO SCH ×2 (09:24→21:14)
[2017-07-27] MEDS: Folic Acid TAB* 1 MG PO SCH (09:24)
[2017-07-27] MEDS: Docusate CAP* 100 MG PO SCH ×2 (09:24→21:14)
[2017-07-27] MEDS: Famotidine TAB* 20 MG PO SCH (09:24)
[2017-07-27] MEDS: Potassium Chlor TAB* 20 MEQ TAB.ER PO SCH ×2 (09:24→15:58)
[2017-07-27] MEDS: Hydroxychloroquine TAB* 200 MG PO SCH (09:26)
[2017-07-27 09:32] LABS: Folate > 20.00 ng/mL (>3.99)
--- NOTE | 2017-07-27 16:17 | PN ---
Subjective Date of Service: 07/27/17 Interval History: Patient in better spirits today, appears less agitated. Moderate decrease in fatigue and SOB per patient. PT states she has a decrease in exercise tolerance with increased SOB since Thursday. No other acute complaints overnight. Family History: Unchanged from Admission Social History: Unchanged from Admission Past Medical History: Unchanged from Admission Objective Active Medications: Acetaminophen (Tylenol Tab*) 650 mg PO Q6H PRN PRN Reason: FEVER/PAIN Albuterol (Ventolin 2.5 Mg/3 Ml Neb.Rika*) 2.5 mg INH Q2H PRN PRN Reason: SOB/WHEEZING Docusate Sodium (Colace Cap*) 200 mg PO BID [facility] Last Admin: 07/27/17 09:24 Dose: 200 mg Donepezil HCl (Aricept Tab*) 10 mg PO QPM [facility] Last Admin: 07/26/17 17:32 Dose: 10 mg Famotidine (Pepcid Tab*) 40 mg PO DAILY [facility] Last Admin: 07/27/17 09:24 Dose: 40 mg Ferrous Gluconate (Fergon Tab*) 324 mg PO BID [facility] Last Admin: 07/27/17 09:24 Dose: 324 mg Folic Acid (Folvite Tab*) 1 mg PO DAILY [facility] Last Admin: 07/27/17 09:24 Dose: 1 mg Hydroxychloroquine Sulfate (Plaquenil Tab*) 200 mg PO DAILY [facility] Last Admin: 07/27/17 09:26 Dose: 200 mg Levothyroxine Sodium (Synthroid Tab*) 125 mcg PO DAILY@0600 [facility] Last Admin: 07/27/17 05:42 Dose: 125 mcg Melatonin (Melatonin (Nf)) 3 mg PO BEDTIME PRN; Protocol PRN Reason: Sleep Last Admin: 07/24/17 22:05 Dose: 3 mg Omeprazole (Prilosec Cap*) 20 mg PO DAILY@0600 [facility] Last Admin: 07/27/17 05:42 Dose: 20 mg Potassium Chloride (Klor Con Er Tab*) 20 meq PO TID [facility] Last Admin: 07/27/17 15:58 Dose: 20 meq Quetiapine Fumarate (Seroquel Tab*) 12.5 mg PO BEDTIME [facility] Last Admin: 07/26/17 22:02 Dose: 12.5 mg Tramadol HCl (Ultram*) 50 mg PO TID PRN PRN Reason: PAIN Warfarin Sodium (Coumadin Tab(*)) 4 mg PO DAILY@1700 JOYCE PRN Reason: Protocol Last Admin: 07/26/17 16:38 Dose: 4 mg Vital Signs 07/26/17 07/26/17 07/26/17 20:00 20:33 23:34 Temperature 98.4 F 98.3 F Pulse Rate 69 70 Respiratory 20 24 16 Rate Blood Pressure 126/78 119/57 (mmHg) O2 Sat by Pulse 95 97 Oximetry 07/27/17 07/27/17 07/27/17 01:45 04:14 07:34 Temperature 98.3 F 98.6 F Pulse Rate 71 70 70 Respiratory 20 16 24 Rate Blood Pressure 132/64 144/55 (mmHg) O2 Sat by Pulse 97 95 95 Oximetry 07/27/17 07/27/17 08:00 11:29 Temperature 97.8 F Pulse Rate 69 Respiratory 24 28 Rate Blood Pressure 143/61 (mmHg) O2 Sat by Pulse 97 Oximetry Oxygen Devices in Use Now: None Appearance: Patient is a 76yo female who appears stated age laying comfortably in the hospital be in NAD. Eyes: No Scleral Icterus, PERRLA Ears/Nose/Mouth/Throat: NL Teeth, Lips, Gums, Clear Oropharnyx, Mucous Membranes Moist Neck: NL Appearance and Movements; NL JVP, Trachea Midline Respiratory: Symmetrical Chest Expansion and Respiratory Effort, - - slight inspiratory crackles in lung bases. Cardiovascular: RRR, No Edema, - - Grade 2/6 murmur heard best at Left upper sternal border in the 2nd intercostal space. Abdominal: NL Sounds; No Tenderness; No Distention, No Hepatosplenomegaly Lymphatic: No Cervical Adenopathy Extremities: No Edema, No Clubbing, Cyanosis Skin: No Rash or Ulcers, No Nodules or Sclerosis Neurological: Alert and Oriented x 3, NL Gait Result Diagrams: 07/27/17 05:57 07/27/17 05:57 Additional Lab and Data: 07/23/17 07/23/17 07/23/17 22:15 22:15 22:15 WBC 9.0 RBC 2.62 L Hgb 8.9 L Hct 27 L MCV 104 H MCH 34 H MCHC 33 RDW 18 H Plt Count 414 MPV 7 L Neut % (Auto) 80.5 Lymph % (Auto) 8.2 L Moody % (Auto) 10.2 H Eos % (Auto) 0.2 Baso % (Auto) 0.9 Absolute Neuts (auto) 7.3 Absolute Lymphs (auto) 0.7 L Absolute Monos (auto) 0.9 H Absolute Eos (auto) 0 Absolute Basos (auto) 0.1 Absolute Nucleated RBC 0.03 Nucleated RBC % 0.3 INR (Anticoag Therapy) 4.01 H APTT 28.1 Sodium 135 Potassium 2.3 L* Chloride 92 L Carbon Dioxide 32 Anion Gap 11 BUN 82 H Creatinine 2.07 H Est GFR ( Amer) 29.9 Est GFR (Non-Af Amer) 23.2 BUN/Creatinine Ratio 39.6 H Glucose 121 H Lactic Acid Calcium 10.7 H Magnesium Total Bilirubin 0.30 AST 29 ALT 16 Alkaline Phosphatase 87 Troponin I 0.10 H* Total Protein 6.4 Albumin 3.4 Globulin 3.0 Albumin/Globulin Ratio 1.1 Urine Color Urine Appearance Urine pH Ur Specific [place] Urine Protein Urine Ketones Urine Blood Urine Nitrate Urine Bilirubin Urine Urobilinogen Ur Leukocyte Esterase Urine WBC (Auto) Urine RBC (Auto) Urine Bacteria Urine Glucose Urine Ascorbic Acid 07/23/17 07/23/17 07/24/17 22:15 22:50 02:31 WBC RBC Hgb Hct MCV MCH MCHC RDW Plt Count MPV Neut % (Auto) Lymph % (Auto) Moody % (Auto) Eos % (Auto) Baso % (Auto) Absolute Neuts (auto) Absolute Lymphs (auto) Absolute Monos (auto) Absolute Eos (auto) Absolute Basos (auto) Absolute Nucleated RBC Nucleated RBC % INR (Anticoag Therapy) APTT Sodium Potassium Chloride Carbon Dioxide Anion Gap BUN Creatinine Est GFR ( Amer) Est GFR (Non-Af Amer) BUN/Creatinine Ratio Glucose Lactic Acid 1.3 1.8 Calcium Magnesium Total Bilirubin AST ALT Alkaline Phosphatase Troponin I Total Protein Albumin Globulin Albumin/Globulin Ratio Urine Color Yellow Urine Appearance Clear Urine pH 7.0 Ur Specific [place] 1.009 L Urine Protein Negative Urine Ketones Negative Urine Blood Negative Urine Nitrate Negative Urine Bilirubin Negative Urine Urobilinogen Negative Ur Leukocyte Esterase 2+ H Urine WBC (Auto) Trace(0-5/hpf) Urine RBC (Auto) Absent Urine Bacteria Absent Urine Glucose Negative Urine Ascorbic Acid * H 07/24/17 07/24/17 07/24/17 02:31 02:31 04:56 WBC 11.7 H RBC 2.25 L Hgb 8.8 L 7.6 L Hct 27 L 24 L MCV 105 H MCH 34 H MCHC 32 RDW 18 H Plt Count 368 MPV 8 Neut % (Auto) Lymph % (Auto) Moody % (Auto) Eos % (Auto) Baso % (Auto) Absolute Neuts (auto) Absolute Lymphs (auto) Absolute Monos (auto) Absolute Eos (auto) Absolute Basos (auto) Absolute Nucleated RBC Nucleated RBC % INR (Anticoag Therapy) APTT Sodium Potassium Chloride Carbon Dioxide Anion Gap BUN Creatinine Est GFR ( Amer) Est GFR (Non-Af Amer) BUN/Creatinine Ratio Glucose Lactic Acid Calcium Magnesium Total Bilirubin AST ALT Alkaline Phosphatase Troponin I 0.11 H* Total Protein Albumin Globulin Albumin/Globulin Ratio Urine Color Urine Appearance Urine pH Ur Specific [place] Urine Protein Urine Ketones Urine Blood Urine Nitrate Urine Bilirubin Urine Urobilinogen Ur Leukocyte Esterase Urine WBC (Auto) Urine RBC (Auto) Urine Bacteria Urine Glucose Urine Ascorbic Acid 07/24/17 07/24/17 07/24/17 04:56 04:56 14:26 WBC RBC Hgb Hct MCV MCH MCHC RDW Plt Count MPV Neut % (Auto) Lymph % (Auto) Moody % (Auto) Eos % (Auto) Baso % (Auto) Absolute Neuts (auto) Absolute Lymphs (auto) Absolute Monos (auto) Absolute Eos (auto) Absolute Basos (auto) Absolute Nucleated RBC Nucleated RBC % INR (Anticoag Therapy) 3.45 H APTT Sodium 138 137 Potassium 2.3 L* 3.0 L Chloride 97 L 101 Carbon Dioxide 28 25 Anion Gap 13 H 11 BUN 79 H 69 H Creatinine 1.97 H 1.80 H Est GFR ( Amer) 31.6 35.1 Est GFR (Non-Af Amer) 24.6 27.3 BUN/Creatinine Ratio 40.1 H 38.3 H Glucose 96 131 H Lactic Acid Calcium 10.2 9.9 Magnesium 2.3 Total Bilirubin AST ALT Alkaline Phosphatase Troponin I 0.11 H* Total Protein Albumin Globulin Albumin/Globulin Ratio Urine Color Urine Appearance Urine pH Ur Specific [place] Urine Protein Urine Ketones Urine Blood Urine Nitrate Urine Bilirubin Urine Urobilinogen Ur Leukocyte Esterase Urine WBC (Auto) Urine RBC (Auto) Urine Bacteria Urine Glucose Urine Ascorbic Acid 09/07/25/17 07/26/17 05:46 05:46 05:13 WBC RBC Hgb Hct MCV MCH MCHC RDW Plt Count MPV Neut % (Auto) Lymph % (Auto) Moody % (Auto) Eos % (Auto) Baso % (Auto) Absolute Neuts (auto) Absolute Lymphs (auto) Absolute Monos (auto) Absolute Eos (auto) Absolute Basos (auto) Absolute Nucleated RBC Nucleated RBC % INR (Anticoag Therapy) 1.46 H APTT Sodium 140 138 Potassium 3.4 L 3.1 L Chloride 106 106 Carbon Dioxide 25 23 Anion Gap 9 9 BUN 57 H 43 H Creatinine 1.44 H 1.35 H Est GFR ( Amer) 45.4 48.9 Est GFR (Non-Af Amer) 35.3 38.0 BUN/Creatinine Ratio 39.6 H 31.9 H Glucose 102 H 96 Lactic Acid Calcium 9.7 9.3 Magnesium Total Bilirubin AST ALT Alkaline Phosphatase Troponin I Total Protein Albumin Globulin Albumin/Globulin Ratio Urine Color Urine Appearance Urine pH Ur Specific [place] Urine Protein Urine Ketones Urine Blood Urine Nitrate Urine Bilirubin Urine Urobilinogen Ur Leukocyte Esterase Urine WBC (Auto) Urine RBC (Auto) Urine Bacteria Urine Glucose Urine Ascorbic Acid 07/26/17 07/26/17 05:13 05:13 WBC 12.8 H RBC 2.35 L Hgb 7.8 L Hct 25 L MCV 106 H MCH 33 H MCHC 31 RDW 17 H Plt Count 307 MPV 8 Neut % (Auto) Lymph % (Auto) Moody % (Auto) Eos % (Auto) Baso % (Auto) Absolute Neuts (auto) Absolute Lymphs (auto) Absolute Monos (auto) Absolute Eos (auto) Absolute Basos (auto) Absolute Nucleated RBC Nucleated RBC % INR (Anticoag Therapy) 1.26 H APTT Sodium Potassium Chloride Carbon Dioxide Anion Gap BUN Creatinine Est GFR ( Amer) Est GFR (Non-Af Amer) BUN/Creatinine Ratio Glucose Lactic Acid Calcium Magnesium Total Bilirubin AST ALT Alkaline Phosphatase Troponin I Total Protein Albumin Globulin Albumin/Globulin Ratio Urine Color Urine Appearance Urine pH Ur Specific [place] Urine Protein Urine Ketones Urine Blood Urine Nitrate Urine Bilirubin Urine Urobilinogen Ur Leukocyte Esterase Urine WBC (Auto) Urine RBC (Auto) Urine Bacteria Urine Glucose Urine Ascorbic Acid Assess/Plan/Problems-Billing Ms. Mike is a 76 yo female with PMHx significant for RA, aplastic anemia, chronic diastolic HF, CKD, HTN, GERD, hypothyroidism and IBS who presented to the emergency room with complaints of a fall and possible syncope on warfarin who is short of breath with decreased exercise tolerance. - Patient Problems (1) Dizziness Current Visit: Yes Status: Acute Code(s): R42 - DIZZINESS AND GIDDINESS SNOMED Code(s): 560189332 Comment: Still not known if patient had a mechanical fall or syncope. Worsening SOB and exercise intolerance per PT. Son amenable to STR. Anemia resolving, also of unknown origin. (2) Elevated troponin Current Visit: Yes Status: Acute Code(s): R74.8 - ABNORMAL LEVELS OF OTHER SERUM ENZYMES SNOMED Code(s): 738314419 Comment: Troponin 0.10, 0.11, 0.11 Suspect demand ischemia (3) Hypokalemia Current Visit: Yes Status: Acute Code(s): E87.6 - HYPOKALEMIA SNOMED Code( s): 29382736 Comment: Resolved, most recently at 3.6, will maintain potassium replacement to 20meq TID and recheck in morning. (4) Warfarin toxicity Current Visit: Yes Status: Acute Code(s): T45.511A - POISONING BY ANTICOAGULANTS, ACCIDENTAL, INIT SNOMED Code(s): 73940321 Comment: INR now subtherapeutic for 3 straight days, continue warfarin dose. (5) Atrial fibrillation Current Visit: Yes Status: Chronic Code(s): I48.91 - UNSPECIFIED ATRIAL FIBRILLATION SNOMED Code(s): 51621610 Comment: Rate controlled off any meds. INR still subtherapeutic. Will give coumadin 4mg today and recheck INR tomorrow. (6) CKD (chronic kidney disease) Current Visit: Yes Status: Chronic Code(s): N18.9 - CHRONIC KIDNEY DISEASE, UNSPECIFIED SNOMED Code(s): 693664240 Comment: Creatinine increased slightly, crackles in lungs present but decreased. Will not give lasix today and recheck BMP in morning. (7) Hypertension Current Visit: Yes Status: Chronic Priority: Medium Code(s): I10 - ESSENTIAL (PRIMARY) HYPERTENSION SNOMED Code(s): 16585081 Comment: BP is under good control not on any medications. Monitor. (8) Hypothyroidism Current Visit: Yes Status: Chronic Code(s): E03.9 - HYPOTHYROIDISM, UNSPECIFIED SNOMED Code(s): 84286550 Comment: Continue levothyroxine. (9) Diastolic heart failure Current Visit: No Status: Chronic Code(s): I50.30 - UNSPECIFIED DIASTOLIC ( CONGESTIVE) HEART FAILURE SNOMED Code(s): 913997361 Comment: Decreased crackles on exam, will not give lasix due to kidney function. (10) Anemia Current Visit: Yes Status: Acute Code(s): D64.9 - ANEMIA, UNSPECIFIED SNOMED Code(s): 040866956 Comment: Improving daily with reticulocyte count of 4.2. May be partially resonsible for fatigue and SOB. Unknown cause, could be due to resolved hypothyroidism. Patient has a history of aplastic anemia, but this does not look to be directly responsible for current anemia. Outpatient studies from 06/17 shows high TSH, normal B12, High Iron, High TIBC and High EPO. TSH and folate normal. High BUN/ Creatinine ratio early in hospitalization with supratherapeutic warfarin could indicate resolved GI bleed. Will order stool occult blood. (11) DVT prophylaxis Current Visit: Yes Status: Acute Code(s): HLN0122 - SNOMED Code(s): 888107815 Comment: Start back coumadin (12) DNR (do not resuscitate) Current Visit: Yes Status: Acute Status and Disposition: Admitted inpatient. Will discharge to [facility] when bed available.
[2017-07-27] MEDS: Warfarin TAB(*) 4 MG PO SCH (18:02)
[2017-07-27] MEDS: Donepezil TAB* 5 MG PO SCH (18:02)
[2017-07-27] MEDS: QUEtiapine TAB* 25 MG PO SCH (21:14)
[2017-07-28 05:25] LABS: BUN/Creatinine Ratio 29.8 (8-20); Calcium 8.9 mg/dL (8.6-10.3); EGFR African American 46.5 (>60); EGFR Non-African American 36.2 (>60); Potassium 3.7 mmol/L (3.5-5.0)
[2017-07-28] MEDS: Omeprazole CAP* 20 MG PO SCH (05:27)
[2017-07-28] MEDS: Levothyroxine TAB* 125 MCG TAB PO SCH (05:27)
[2017-07-28 06:01] LABS: Comments Flag Yes; Hematocrit 25 % (35-47); Mean Corpuscular HGB Conc 32 g/dl (31-36); Mean Corpuscular Hemoglobin 33 pg (27-31); Mean Corpuscular Volume 106 fL (80-97); Mean Platelet Volume 8 um3 (7.4-10.4); Red Blood Count 2.38 10^6/ul (4.0-5.4); Red Cell Distribution Width 17 % (10.5-15); White Blood Count 10.1 10^3/ul (3.5-10.8)
[2017-07-28 06:02] LABS: Add Diff/Slide Review? Slide Review Added
[2017-07-28 06:30] LABS: Polychromasia 2+
[2017-07-28 06:31] LABS: Hypochromasia 1+; Macrocytosis 2+
[2017-07-28] MEDS ORDERED: Furosemide IV* 10 MG/ML 2 ML VIAL (20 MG) IV ONE (07:51)
[2017-07-28] MEDS ORDERED: Potassium Chlor TAB* 20 MEQ TAB.ER PO SCH (09:00)
[2017-07-28] MEDS ORDERED: Influenza VAC *QUAD* 2017-18* 0.5 ML SYRINGE IM ONE (09:00)
[2017-07-28] MEDS: Ferrous Gluconate TAB* 324 MG TAB PO SCH (10:26)
[2017-07-28] MEDS: Folic Acid TAB* 1 MG PO SCH (10:26)
[2017-07-28] MEDS: Famotidine TAB* 20 MG PO SCH (10:26)
[2017-07-28] MEDS: Docusate CAP* 100 MG PO SCH (10:26)
[2017-07-28] MEDS: Hydroxychloroquine TAB* 200 MG PO SCH (10:27)
[2017-07-28 11:51] VITALS: BP 143/62
--- NOTE | 2017-07-28 15:00 | DS ---
CC: [facility]; Dr. Blair Gutierrez* DATE OF ADMISSION: 07/23/2017. DATE OF DISCHARGE: 07/28/2017. PRIMARY CARE PHYSICIAN: Dr. Blair Gutierrez. DISCHARGING PROVIDER: JESSE Olguin. SUPERVISING PHYSICIAN: Dr. Tank Byers* (dictated by JESSE Olguin). PRIMARY DISCHARGE DIAGNOSES: 1. Weakness with fall - unsure if this was a syncopal episode versus mechanical fall. 2. Hypokalemia. 3. Macrocytic anemia. 4. Supratherapeutic INR. SECONDARY DISCHARGE DIAGNOSES: 1. Chronic A-fib. 2. History of chronic diastolic heart failure with last EF measured at 55 to 60 percent. 3. Chronic kidney disease, stage three. 4. Hypothyroidism. 5. Hypertension. 6. Rheumatoid arthritis. 7. Mild dementia. DISCHARGE MEDICATIONS: 1. Donepezil 10 mg p.o. nightly. 2. Famotidine 40 mg p.o. daily. 3. Ferrous Gluconate 324 mg p.o. twice daily. 4. Folic acid 1 mg p.o. daily. 5. Furosemide 20 mg p.o. daily. 6. Plaquenil 200 mg p.o. daily. 7. Levothyroxine 125 mcg p.o. daily. 8. Potassium chloride 20 mEq p.o. twice daily. 9. Seroquel 12.5 mg p.o. at bedtime. 10. Coumadin 4 mg p.o. daily. 11. Tramadol 50 mg p.o. 3 times daily as needed for pain. Medication changes: Increase potassium from 30 to 40 mEq daily[address]AGIN[address] CT of the brain shows no acute intracranial pathology. 2. Chest x-ray, 07/23/2017, shows perhaps a small left lung infiltrate, but a hypoventilation film. 3. Repeat chest x-ray, 07/26/2017, shows somewhat improved left basilar atelectasis versus consolidation. HOSPITAL COURSE: This is a 76-year-old female with a history of chronic A-fib, diastolic heart failure, chronic kidney disease, hypertension, hypothyroidism, rheumatoid arthritis and mild dementia who has been living independently at [facility] and was brought to the emergency department by her son after a fall at home. The patient's son found her somewhat disoriented and in the bathroom after sustaining an obvious fall, likely from the toilet. The patient did not recall the circumstances of the fall and it was unclear whether it was related to true syncope or whether it was a mechanical event. Work-up in the emergency department included a CT of the head which did not demonstrate any bleeding, nor did she have any focal neurologic deficits. No significant injury was noted; however, she was significantly hypokalemic with a potassium of 2.3 mmol/L, which was persistent on repeat labs several hours later. Her initial troponin was also somewhat elevated at 0.10. The patient had no complaints of chest pain or other cardiac symptoms at that time and compared to her prior troponin, she has had mild elevation on numerous occasions in the past. Her chest x-ray was a poor film, but did not demonstrate any significant findings. The patient was complaining of some mild shortness of breath over the last couple of weeks, but did not really have any accompanying symptoms such as a cough, chest pain, palpitations, fever, or lower extremity swelling. The patient was subsequently admitted for physical therapy evaluation and repletion of her potassium. Potassium improved with appropriate replacement and her troponin levels remained stagnate at 0.11 on two additional occasions that it was checked without additional complaints of chest pain or noted changes on EKG. The patient continued to complain of some mild shortness of breath, mostly with activity. She was noted to be mildly anemic, which was new for her. Stool guaiac was negative. Her anemia was noted to be macrocytic. Folate testing was normal with a normal TSH. She did have an elevated reticulocyte count at 4.2 and relatively recent outpatient iron testing was normal. Vitamin B12 at that time was greater than 900 as well. TSH was checked and noted to be normal at 1.48. At the time of admission, the patient was also slightly supratherapeutic on her INR, but no obvious signs of bleeding. She did received partial reversal of this and her INR is still subtherapeutic at the time of discharge at 1.48. The patient did not experience any syncopal or presyncopal episodes during her hospital stay and her telemetry monitoring remained unremarkable. DISPOSITION AND FOLLOW-UP: The patient is being discharged to subacute rehab at [facility]. Due to the patient's fall and somewhat deconditioned state, it was felt that she would do best at a subacute rehab before returning home to independent living. The only change to her medication is slight increase in her potassium. Again, her INR is subtherapeutic at discharge and recommend repeating an INR in two days as well as a basic metabolic panel to ensure that her potassium supplementation is adequate. She should follow-up with her primary care provider following discharge from [facility]. JESSE OLGUIN [id number]/[facility] #: [id number] JEANETH
[2017-07-29] MEDS ORDERED: Furosemide TAB* 40 MG PO SCH (09:00)
== END 2017-07-28 15:45 | DRG 640 ==
LOC: ED 20:45 → MEDTELE 23:17
PROVIDERS: ADMIT Hospitalist; ATTEND Hospitalist
DX: E87.6 Hypokalemia (principal); D61.1 Drug-induced aplastic anemia; I44.2 Atrioventricular block, complete; N18.4 Chronic kidney disease, stage 4 (severe); I48.91 Unspecified atrial fibrillation; I08.1 Rheumatic disorders of both mitral and tricuspid valves; I13.0 Hypertensive heart and chronic kidney disease with heart failure and stage 1 through stage 4 chronic kidney disease, or unspecified chronic kidney disease; I50.32 Chronic diastolic (congestive) heart failure; M06.9 Rheumatoid arthritis, unspecified; R42 Dizziness and giddiness; T45.515A Adverse effect of anticoagulants, initial encounter; Y92.039 Unspecified place in apartment as the place of occurrence of the external cause; X58.XXXA Exposure to other specified factors, initial encounter; W18.12XA Fall from or off toilet with subsequent striking against object, initial encounter; Y92.031 Bathroom in apartment as the place of occurrence of the external cause; R74.8 Abnormal levels of other serum enzymes; T45.1X5A Adverse effect of antineoplastic and immunosuppressive drugs, initial encounter; Z79.01 Long term (current) use of anticoagulants; E03.9 Hypothyroidism, unspecified; K21.9 Gastro-esophageal reflux disease without esophagitis; K58.1 Irritable bowel syndrome with constipation; Z66 Do not resuscitate; Z79.82 Long term (current) use of aspirin; Z79.899 Other long term (current) drug therapy; Z88.6 Allergy status to analgesic agent; Z88.5 Allergy status to narcotic agent; Z88.0 Allergy status to penicillin; Z88.2 Allergy status to sulfonamides; Z88.8 Allergy status to other drugs, medicaments and biological substances; Z95.0 Presence of cardiac pacemaker; Z96.653 Presence of artificial knee joint, bilateral; Z87.891 Personal history of nicotine dependence
CPT/HCPCS: 36415; 70450; 71010; 80048; 80053; 81003; 81015; 82272; 82746; 83090; 83605; 83735; 84443; 84484; 85014; 85018; 85025; 85027; 85045; 85610; 85730; 87040; 87077; 87086; 87186; 90686; 93005; 94760; A9270-GY; J1940; J3480

== ENCOUNTER 2017-08-01 16:45 | Inpatient (IN) | payer MEDICARE, MEDICAID ==
[2017-08-01] MEDS ORDERED: NS 0.9% 1000 ML* 1,000 ML IV SCH (17:00)
[2017-08-01 17:32] LABS: Hematocrit 27 % (35-47); Hemoglobin 8.6 g/dl (12.0-16.0); Mean Corpuscular HGB Conc 32 g/dl (31-36); Mean Corpuscular Hemoglobin 33 pg (27-31); Mean Corpuscular Volume 103 fL (80-97); Mean Platelet Volume 7 um3 (7.4-10.4); Red Blood Count 2.65 10^6/ul (4.0-5.4); Red Cell Distribution Width 17 % (10.5-15); White Blood Count 10.1 10^3/ul (3.5-10.8)
[2017-08-01 17:33] LABS: Comments Flag Yes
[2017-08-01 17:44] LABS: Albumin 3.4 g/dL (3.2-5.2); BUN/Creatinine Ratio 21.8 (8-20); C Reactive Protein 25.29 mg/L (< 5.00); Calcium 8.9 mg/dL (8.6-10.3); EGFR African American 49.8 (>60); EGFR Non-African American 38.7 (>60); Globulin 3.2 g/dL (2-4); Magnesium 1.9 mg/dL (1.9-2.7); Potassium 4.4 mmol/L (3.5-5.0); Total Bilirubin 0.4 mg/dL (0.2-1.0); Total Protein 6.6 g/dL (6.4-8.9)
[2017-08-01 17:49] LABS: Troponin I 0.13 ng/mL (<0.04)
--- NOTE | 2017-08-01 17:51 | RAD ---
HISTORY: Shortness of breath COMPARISONS: July 26, 2017 VIEWS: 1: frontal portable view of the chest at 4:42 PM FINDINGS: LINES AND TUBES: A left-sided pacemaker is noted CARDIOMEDIASTINAL SILHOUETTE: The cardiomediastinal silhouette is mildly enlarged, stable. PLEURA: The costophrenic angles are sharp. No pleural abnormalities are noted. LUNG PARENCHYMA: The lungs are clear. There is improved aeration of the left lower lung. ABDOMEN: The upper abdomen is clear. There is no subphrenic gas. BONES AND SOFT TISSUES: The patient is status post median sternotomy. IMPRESSION: NO ACTIVE CARDIOPULMONARY DISEASE.
[2017-08-01] MEDS ORDERED: Meropenem 1 GM PREMIX(*) 1 GM/50 ML BAG IV ONE (18:00)
[2017-08-01] MEDS ORDERED: Furosemide IV* 10 MG/ML VIAL (40 MG) IV ONE (18:36)
[2017-08-01 18:38] LABS: TSH (Thyroid Stimulating Horm) 1.85 mcIU/mL (0.34-5.60)
[2017-08-01] MEDS ORDERED: traMADol TAB* 50 MG PO PRN (19:02)
[2017-08-01] MEDS ORDERED: Albuterol 2.5 MG/3 ML NEB.SOL* (0.083%) INH PRN (19:05)
[2017-08-01 19:20] LABS: Urine Bacteria 1+ (Absent); Urine Bilirubin Negative (Negative); Urine Glucose Negative (Negative); Urine Nitrite Negative (Negative)
[2017-08-01] MEDS: Potassium Chlor TAB* 10 MEQ TAB.ER PO SCH (22:49)
[2017-08-01] MEDS: Ferrous Gluconate TAB* 324 MG TAB PO SCH (22:49)
[2017-08-01] MEDS: QUEtiapine TAB* 25 MG PO SCH (22:49)
[2017-08-01] MEDS: guaiFENesin ER TAB 600 MG PO SCH (22:53)
--- NOTE | 2017-08-01 23:09 | ED ---
Ady Singletary Nikita, scribed for Se Cardozo MD on 08/01/17 at 1703 . Respiratory - HPI Summary HPI Summary: This patient is a 76 year old F BIBA to ED with a chief complaint of respiratory distress since 3 days ago and has worsened since this morning. Pt was at [facility] when her son found her in distress and having SOB. Pt was given 1 duoneb treatment and CPAP SHOP WORKER. The patient rates the pain 0/10 in severity. Symptoms aggravated by nothing. Symptoms alleviated by duoneb (O2 sat was in the low 80s before; in the high 80s after). Per EMS, pt was not feeling well for about a week. Upon arrival, EMS reports pallor, diaphoretic, wheezing, and crackling. - History of Current Complaint Chief Complaint: EDShortnessOfBreath Stated Complaint: SEVERE RESPIRATORY DISTRESS Hx Obtained From: Patient, EMS Onset/Duration: Sudden Onset - 3 weeks ago, worsened this morning, Lasting Days , Still Present Timing: Constant Pain Intensity: 0 Character: Wheezing - and crackling Aggravating Factor(s): Nothing Alleviating Factor(s): Other Associated Signs and Symptoms: Wheezing - Per EMS, pt was not feeling well for about a week. Upon arrival, EMS reports SOB, pallor, diaphoretic, wheezing and crackling. - Allergy/Home Medications Allergies/Adverse Reactions: Allergies Allergy/AdvReac Type Severity Reaction Status Date / Time Macrolides and Ketolides Allergy Severe possible Verified 10/31/15 23:21 QT prolongation/torsades Beta Adrenergic Blockers Allergy Unknown Verified 10/31/15 23:21 Reaction Details Cephalosporins Allergy Unknown Verified 10/31/15 23:21 Reaction Details Codeine Allergy Unknown Verified 07/23/17 23:29 Reaction Details Indomethacin [From Indocin] Allergy Unknown Verified 10/31/15 23:21 Reaction Details NSAIDs Allergy Unknown Verified 07/23/17 23:29 Reaction Details Penicillins Allergy Unknown Verified 10/31/15 23:21 Reaction Details Sulfa Drugs Allergy Unknown Verified 10/31/15 23:21 Reaction Details quinalones Allergy Severe possible Uncoded 10/31/15 23:21 QT prolongation /torasades ANTITUSSIVES Allergy Unknown Uncoded 10/31/15 23:21 Reaction Details OPIATE AGONISTS Allergy Unknown Uncoded 10/31/15 23:21 Reaction Details PMH/Surg Hx/FS Hx/Imm Hx Endocrine/Hematology History: Reports: Hx Anticoagulant Therapy - takes coumadin , Hx Thyroid Disease, Hx Anemia - aplastic anemia 2012 Denies: Hx Diabetes Cardiovascular History: Reports: Hx Congestive Heart Failure, Hx Coronary Artery Disease, Hx Hypertension, Hx Pacemaker/ICD, Hx Syncope, Hx Valvular Heart Disease - mitral valve repair, Other Cardiovascular Problems/Disorders - Coumadin Respiratory History: Reports: Hx Asthma, Hx Pneumonia GI History: Reports: Hx Gastroesophageal Reflux Disease, Hx Ulcer - gastric in the History: Reports: Hx Acute Renal Failure Musculoskeletal History: Reports: Hx Arthritis, Hx Back Problems, Hx Gout, Other Musculoskeletal History - RA Denies: Hx Osteoporosis Sensory History: Reports: Hx Cataracts - removed, Hx Contacts or Glasses, Hx Glaucoma Denies: Hx Hearing Aid Opthamlomology History: Reports: Hx Cataracts - removed, Hx Contacts or Glasses , Hx Glaucoma Neurological History: Reports: Hx Dementia Denies: Hx Developmental Delay, Hx Headaches, Hx Migraine, Hx Nerve Disease, Hx Seizures, Hx Spinal Cord Injury, Hx Transient Ischemic Attacks (TIA), Other Neuro Impairments/Disorders - Cancer History Cancer Type, Location and Year: pt seen by oncology for aplastic anemia, resolved per pt Hx Chemotherapy: No Hx Radiation Therapy: No Hx Palliative Cancer Treatment: No - Surgical History Surgery Procedure, Year, and Place: Bilat knee replacements at [facility] ? [id number]. Right wrist pinning at [facility] ?1997. Back surgery at [facility] ?2000. Pacemaker placed at [facility] 1994. Thyroid surgery at [facility] 1996. . x3. Cataract surgery. Appendectomy 1959 Hx Anesthesia Reactions: No Infectious Disease History: Unable to Obtain/Confirm Infectious Disease History: Reports: Hx Hepatitis Denies: History Other Infectious Disease, Traveled Outside the [place] in Last 30 Days - Family History Known Family History: Positive: Cardiac Disease, Hypertension, Diabetes - Social History Alcohol Use: None Substance Use Type: Reports: None Smoking Status (MU): Former Smoker Review of Systems Positive: Skin Diaphoresis Positive: Shortness Of Breath, Other - wheezing and crackling Positive: Other - pallor All Other Systems Reviewed And Are Negative: Yes Physical Exam Triage Information Reviewed: Yes Vital Signs On Initial Exam: Initial Vitals Temp Pulse Resp BP Pulse Ox 101.0 F 70 22 148/87 100 08/01/17 16:51 08/01/17 16:51 08/01/17 16:51 08/01/17 16:51 08/01/17 16:51 Vital Signs Reviewed: Yes Appearance: Positive: Well-Appearing, Pain Distress - moderate to severe respiratory distress Skin: Positive: Warm, Skin Color Reflects Adequate Perfusion, Dry Head/Face: Positive: Normal Head/Face Inspection Eyes: Positive: EOMI, SEBASTIAN ENT: Positive: Normal ENT inspection Neck: Positive: Supple, Nontender Respiratory/Lung Sounds: Positive: Rhonchi - bilaterally, Wheezes - bilaterally Cardiovascular: Positive: RRR Abdomen Description: Positive: Nontender, Soft Bowel Sounds: Positive: Present Musculoskeletal: Positive: Normal, Strength/ROM Intact, Other - bilateral pedal edema Neurological: Positive: Sensory/Motor Intact, Alert, Oriented to Person Place, Time, Other - pt is able to say several words in a row Psychiatric: Positive: Affect/Mood Appropriate Diagnostics - Vital Signs Vital Signs Temp Pulse Resp BP Pulse Ox 08/01/17 16:51 101.0 F 70 22 148/87 100 - Laboratory Lab Results: Lab Results 08/01/17 08/01/17 08/01/17 Range/Units 17:13 17:13 17:13 WBC (3.5-10.8) 10^3/ul RBC (4.0-5.4) 10^6/ul Hgb (12.0-16.0) g/dl Hct (35-47) % MCV (80-97) fL MCH (27-31) pg MCHC (31-36) g/dl RDW (10.5-15) % Plt Count (150-450) 10^3/ul MPV (7.4-10.4) um3 Neut % (Auto) (38-83) % Lymph % (Auto) (25-47) % Hickory % (Auto) (1-9) % Eos % (Auto) (0-6) % Baso % (Auto) (0-2) % Absolute Neuts (auto) (1.5-7.7) 10^3/ul Absolute Lymphs (auto) (1.0-4.8) 10^3/ul Absolute Monos (auto) (0-0.8) 10^3/ul Absolute Eos (auto) (0-0.6) 10^3/ul Absolute Basos (auto) (0-0.2) 10^3/ul Absolute Nucleated RBC 10^3/ul Nucleated RBC % INR (Anticoag Therapy) 1.56 H (0.89-1.11) APTT 31.4 (26.0-36.3) seconds Sodium 134 (133-145) mmol/L Potassium 4.4 (3.5-5.0) mmol/L Chloride 105 (101-111) mmol/L Carbon Dioxide 23 (22-32) mmol/L Anion Gap 6 (2-11) mmol/L BUN 29 H (6-24) mg/dL Creatinine 1.33 H (0.51-0.95) mg/dL Est GFR ( Amer) 49.8 (>60) Est GFR (Non-Af Amer) 38.7 (>60) BUN/Creatinine Ratio 21.8 H (8-20) Glucose 90 (70-100) mg/dL Lactic Acid (0.5-2.0) mmol/L Calcium 8.9 (8.6-10.3) mg/dL Magnesium 1.9 (1.9-2.7) mg/dL Total Bilirubin 0.40 (0.2-1.0) mg/dL AST 28 (13-39) U/L ALT 17 (7-52) U/L Alkaline Phosphatase 76 (34-104) U/L Total Creatine Kinase 42 (10-223) U/L CK-MB (CK-2) 4.2 (0.6-6.3) ng/mL Troponin I 0.13 H* (<0.04) ng/mL C-Reactive Protein 25.29 H (< 5.00) mg/L B-Natriuretic Peptide 1760 H ( - 100) pg/mL Total Protein 6.6 (6.4-8.9) g/dL Albumin 3.4 (3.2-5.2) g/dL Globulin 3.2 (2-4) g/dL Albumin/Globulin Ratio 1.1 (1-3) Lipase 105 H (11.0-82.0) U/L TSH 1.85 (0.34-5.60) mcIU/mL 08/01/17 08/01/17 Range/Units 17:13 17:13 WBC 10.1 (3.5-10.8) 10^3/ul RBC 2.65 L (4.0-5.4) 10^6/ul Hgb 8.6 L (12.0-16.0) g/dl Hct 27 L (35-47) % MCV 103 H (80-97) fL MCH 33 H (27-31) pg MCHC 32 (31-36) g/dl RDW 17 H (10.5-15) % Plt Count 342 (150-450) 10^3/ul MPV 7 L (7.4-10.4) um3 Neut % (Auto) 81.7 (38-83) % Lymph % (Auto) 6.3 L (25-47) % Hickory % (Auto) 10.9 H (1-9) % Eos % (Auto) 0.2 (0-6) % Baso % (Auto) 0.9 (0-2) % Absolute Neuts (auto) 8.2 H (1.5-7.7) 10^3/ul Absolute Lymphs (auto) 0.6 L (1.0-4.8) 10^3/ul Absolute Monos (auto) 1.1 H (0-0.8) 10^3/ul Absolute Eos (auto) 0 (0-0.6) 10^3/ul Absolute Basos (auto) 0.1 (0-0.2) 10^3/ul Absolute Nucleated RBC 0.06 10^3/ul Nucleated RBC % 0.6 INR (Anticoag Therapy) (0.89-1.11) APTT (26.0-36.3) seconds Sodium (133-145) mmol/L Potassium (3.5-5.0) mmol/L Chloride (101-111) mmol/L Carbon Dioxide (22-32) mmol/L Anion Gap (2-11) mmol/L BUN (6-24) mg/dL Creatinine (0.51-0.95) mg/dL Est GFR ( Amer) (>60) Est GFR (Non-Af Amer) (>60) BUN/Creatinine Ratio (8-20) Glucose (70-100) mg/dL Lactic Acid 0.9 (0.5-2.0) mmol/L Calcium (8.6-10.3) mg/dL Magnesium (1.9-2.7) mg/dL Total Bilirubin (0.2-1.0) mg/dL AST (13-39) U/L ALT (7-52) U/L Alkaline Phosphatase (34-104) U/L Total Creatine Kinase (10-223) U/L CK-MB (CK-2) (0.6-6.3) ng/mL Troponin I (<0.04) ng/mL C-Reactive Protein (< 5.00) mg/L B-Natriuretic Peptide ( - 100) pg/mL Total Protein (6.4-8.9) g/dL Albumin (3.2-5.2) g/dL Globulin (2-4) g/dL Albumin/Globulin Ratio (1-3) Lipase (11.0-82.0) U/L TSH (0.34-5.60) mcIU/mL Result Diagrams: 08/01/17 17:13 08/01/17 17:13 Lab Statement: Any lab studies that have been ordered have been reviewed, and results considered in the medical decision making process. - Radiology CXR Radiology Interpretation Completed By: Radiologist - NO ACTIVE CARDIOPULMONARY DISEASE. ED physician has reviewed this radiology report and agrees. - EKG 1728 Cardiac Rate: Other Rate - 70bpm; Ventricular-paced rhythm EKG Rhythm: Sinus Rhythm Disposition - Course Assessment/Plan: This patient is a 76 year old F BIBA to ED with a chief complaint of respiratory distress since 3 days ago and has worsened since this morning. Pt was at [facility] when her son found her in distress and having SOB. Pt was given 1 duoneb treatment and CPAP SHOP WORKER. The patient rates the pain 0/ 10 in severity. Symptoms aggravated by nothing. Symptoms alleviated by duoneb ( O2 sat was in the low 80s before; in the high 80s after). Per EMS, pt was not feeling well for about a week. Upon arrival, EMS reports pallor, diaphoretic, wheezing, and crackling. CXR reveals NO ACTIVE CARDIOPULMONARY DISEASE. ED physician has reviewed this radiology report and agrees. EKG reveals ventricular -paced rhythm at 70bpm. In the ED course, pt was given fluids and O2. Medications reviewed. BP noted and advised to follow up with PCP. Consulted with Dr. Coates at 1756 who accepts pt for admission. Pt will be admitted. Pt is a agreeable with this plan. IMPROVED IN ED ON VAPOTHERM. ADMIT HOSPITALIST. - Diagnoses Provider Diagnoses: Acute respiratory failure, CHF (congestive heart failure), UTI (urinary tract infection), Fever - Physician Notifications Discussed Care Of Patient With: Pratibha Coates Time Discussed With Above Provider: 17:56 Instructed by Provider To: Other - Consulted with Dr. Coates who accepts pt for admission. - Critical Care Time Critical Care Time: 30-74 min Discharge - Discharge Plan Condition: Stable Disposition: ADMITTED TO [facility] documentation as recorded by the Ady nunes Nikita accurately reflects the service I personally performed and the decisions made by me, Se Cardozo MD.
--- NOTE | 2017-08-02 01:33 | HP ---
CC: Dr. Gutierrez * HISTORY AND PHYSICAL: DATE OF ADMISSION: 08/01/17 TIME OF ADMISSION: 6:40 p.m. PRIMARY CARE PROVIDER: Matty Gutierrez MD. SNATH HANDLE ASSEMBLER: Ozzie Santillan MD. CHIEF COMPLAINT: Shortness of breath. HISTORY OF PRESENT ILLNESS: This is a 76-year-old female with history of COPD and heart failure, preserved ejection fraction, who was residing at [facility] after a recent hospitalization and was found by her son to be increasingly short of breath over the past 3 days. He noted that she appeared increasingly dyspneic and has been requiring 2 to 3 pillows where she normally requires none. She has no oxygen requirement at baseline and when [facility] called EMS today, she required BiPAP for her oxygenation to be raised to above 90% and she was transitioned to Vapotherm in the emergency department. She does complain of a cough that is not productive of sputum. She denies any recent fevers. Her son does believe she has been having some diarrhea, though she is unsure. She denies dysuria or abdominal pain. She denied any chest pain or palpitation. She believes that she needs a higher dose of Lasix and reports that prior to her last hospitalization, she was taking Lasix 80 mg in the morning and 60 mg in the evening, but was discharged on only 20 mg daily, which she has been getting at [facility]. In addition, her son reports that prior to transfer to [facility], she was following a strict low-salt diet and that at [facility] she is receiving a regular diet that he notes is exceptionally salty. PAST MEDICAL HISTORY: 1. Atrial fibrillation, on anticoagulation. 2. Heart failure with preserved ejection fraction. 3. Chronic kidney disease. 4. Hypertension. 5. Hypothyroidism. 6. Rheumatoid arthritis. 7. Dementia. 8. COPD, with no baseline oxygen requirement. 9. Third-degree heart block, status post pacemaker. 10. Moderate tricuspid regurgitation. 11. Pulmonary hypertension. 12. Mild cognitive dysfunction. HOME MEDICATIONS: From the [facility] MAR: 1. Coumadin 4 mg p.o. daily. 2. Ferrous gluconate 324 mg twice daily. 3. Folic acid 1 mg daily. 4. Lasix 20 mg daily. 5. Pepcid 40 mg daily. 6. Plaquenil 200 mg q.h.s. 7. KCl 10 mEq b.i.d. 8. Seroquel 12.5 mg p.o. q.h.s. 9. Synthroid 125 mcg daily. 10. Tramadol 50 mg q.8 p.r.n. pain. 11. Albuterol sulfate nebulizer q.4 p.r.n. wheezing. 12. Aricept 10 mg q.h.s. ALLERGIES: MACROLIDES, BETA-BLOCKERS, CEPHALOSPORINS, CODEINE, INDOMETHACIN, NSAIDS, PENICILLIN, SULFA, QUINOLONES, OPIATES, and ANTITUSSIVES. SOCIAL HISTORY: She is currently living at [facility], but prior to last hospitalization, she had been living in an apartment on her own. Her MOLST was reviewed today. She wishes to be DNR and DNI. Her healthcare proxy is her son , Mao. Mao's phone number is [phone]. REVIEW OF SYSTEMS: General: Positive for forgetfulness, subjective weight gain. Denies fevers or chills. HEENT: Denies sore throat. Positive for runny nose. Negative for sinus tenderness. Chest: Positive for shortness of breath and dry cough. Negative for chest pain, palpitation. Abdomen: Denies nausea, vomiting, constipation, diarrhea, abdominal pain. Extremities: Positive for some lower extremity edema. PHYSICAL EXAMINATION GENERAL: Alert, ill-appearing female, in mild respiratory distress. VITAL SIGNS: Temperature of 101 degrees, heart rate 75, respiratory rate 20, pulse ox 100% on 40 L/minute of Vapotherm, blood pressure 148/87. HEENT: Moist mucosa. Pupils are equal, round, and reactive to light. NECK: JVP is noted at the angle of the mandible while she is sitting upright. No cervical adenopathy. CHEST: Regular rhythm, pacemaker on the left chest wall. Diffuse coarse rhonchi are noted posteriorly. ABDOMEN: Distended, soft, nontender. No guarding or rebound. Negative Terrazas sign. No CVA tenderness. EXTREMITIES: Chronic venous stasis changes in bilateral extremities. 1+ pitting edema to the knees. Pulses 1+ throughout. Left upper extremity amputation. NEUROLOGIC: She is oriented to person, but requires some encouragement to name the date and did not realize that she was in the hospital. DIAGNOSTIC STUDIES/LAB DATA: Sodium 134, potassium 4.4, chloride 105, bicarb 23, BUN 29, creatinine 1.33. Troponin 0.13. BNP 1760. TSH 1.85. White blood cells 10.1, hemoglobin 8.6, platelets 342. IMAGING: Chest x-ray, my read: Sternotomy wires, left chest wall pacer, cardiomegaly, and increased pulmonary vascular congestion. EKG: V-paced. ED COURSE: She received normal saline 1 L and meropenem 1 g. IMPRESSION: This is a 76-year-old female with an extensive past medical history , who was recently discharged from the hospital and had been recuperating at [facility], who presents with several days of ongoing shortness of breath and is found to be newly hypoxic. 1. Acute hypoxic respiratory failure: She has never had an oxygen requirement before and while her chest x-ray does not show overwhelming pulmonary edema, she is clearly markedly volume overloaded on my physical exam. This coincides with her orthopnea and her recent dose reduction of Lasix. It is unclear why this dose was reduced, but I suspect this was contributing to her decompensation , in addition to her salty diet at the [facility]. I am discontinuing the IV fluids now and starting IV Lasix. She is currently on Vapotherm and is desaturating to the mid 80s with minimal movement and conversation. She will be admitted to the ICU and attempt to decrease her oxygen will be made. Her fever also raises the question of a developing pneumonia and she does cough several times while I am in the room. She received a dose of meropenem in the emergency department, which would appropriately cover her for healthcare associated pneumonia. The dose of meropenem will cover her throughout the night and we will make a decision whether to continue antibiotics in the morning. Check sputum cultures. She will need daily weights and strict In's and Out's. 2. Macrocytic anemia. Her hemoglobin today is 8.6. This is at baseline over the past several months. This is not likely contributing to her presentation. This was worked up extensively on her last hospitalization. She may need Hematology followup for a marrow evaluation given her chronic macrocytic anemia with normal B12 and folate. 3. Atrial fibrillation and third-degree heart block, status post pacer. She is currently V-paced on her EKG. Her INR is subtherapeutic. I will increase her warfarin dose by 20% weekly. 4. Elevated troponin. She has not had any chest pain and EKG is unable to be interpreted for ischemic changes due to V-pacing. I suspect this is most likely demand in relation to hypoxia. We will trend her troponin. 5. Chronic kidney disease. Her renal function is at baseline. 6. Rheumatoid arthritis. Continue Plaquenil. 7. Chronic obstructive pulmonary disease. I do not believe she is in exacerbation at this time and does not require steroids, but can use nebulizers p.r.n. DISPOSITION: Ms. Mike will be admitted to the intensive care unit for her hypoxia and Vapotherm requirements. She is DNR/DNI. TIME SPENT: Greater than 60 minutes were spent on this admission, with greater than half of that time spent [id number] with the patient. [id number]/[facility] #: [id number] MTDD
[2017-08-02] MEDS: Levothyroxine TAB* 125 MCG TAB PO SCH (06:34)
[2017-08-02] MEDS: Hydroxychloroquine TAB* 200 MG PO SCH (08:37)
[2017-08-02] MEDS: Folic Acid TAB* 1 MG PO SCH (08:37)
[2017-08-02] MEDS: guaiFENesin ER TAB 600 MG PO SCH ×2 (08:37→20:14)
[2017-08-02] MEDS: Famotidine TAB* 20 MG PO SCH (08:37)
[2017-08-02] MEDS: Ferrous Gluconate TAB* 324 MG TAB PO SCH ×2 (08:37→20:14)
[2017-08-02] MEDS: Furosemide IV* 10 MG/ML 10 ML VIAL (100 MG) IV SCH ×2 (08:37→17:00)
[2017-08-02] MEDS: Potassium Chlor TAB* 10 MEQ TAB.ER PO SCH ×2 (08:37→20:13)
--- NOTE | 2017-08-02 11:29 | PN ---
Subjective Date of Service: 08/02/17 Interval History: Pt still is on Vapotherm at 40 L. forgetful and apparently was sundowning last night, woke up at night weak, confused. The symptoms resolved this AM No c/o CP Objective Active Medications: Albuterol (Ventolin 2.5 Mg/3 Ml Neb.Rika*) 2.5 mg INH Q4H PRN PRN Reason: SOB/WHEEZING Donepezil HCl (Aricept Tab*) 10 mg PO QPM [facility] Famotidine (Pepcid Tab*) 20 mg PO DAILY [facility] Last Admin: 08/02/17 08:37 Dose: 20 mg Ferrous Gluconate (Fergon Tab*) 324 mg PO BID [facility] Last Admin: 08/02/17 08:37 Dose: 324 mg Folic Acid (Folvite Tab*) 1 mg PO DAILY [facility] Last Admin: 08/02/17 08:37 Dose: 1 mg Furosemide (Lasix Iv*) 40 mg IV 0800,1700 [facility] Last Admin: 08/02/17 08:37 Dose: 40 mg Guaifenesin (Mucinex*) 1,200 mg PO BID [facility] Last Admin: 08/02/17 08:37 Dose: 1,200 mg Hydroxychloroquine Sulfate (Plaquenil Tab*) 200 mg PO DAILY [facility] Last Admin: 08/02/17 08:37 Dose: 200 mg Levothyroxine Sodium (Synthroid Tab*) 125 mcg PO 0600 [facility] Last Admin: 08/02/17 06:34 Dose: 125 mcg Pharmacy Profile Note (Coumadin Daily Reminder*) 0 note FOLLOW UP 1700 [facility] Potassium Chloride (Klor Con Er Tab*) 10 meq PO BID [facility] Last Admin: 08/02/17 08:37 Dose: 10 meq Quetiapine Fumarate (Seroquel Tab*) 12.5 mg PO BEDTIME [facility] Last Admin: 08/01/17 22:49 Dose: 12.5 mg Tramadol HCl (Ultram*) 50 mg PO TID PRN PRN Reason: PAIN Last Admin: 08/02/17 01:53 Dose: 50 mg Warfarin Sodium (Coumadin Tab(*)) 6 mg PO DAILY@1700 [facility] PRN Reason: Protocol Vital Signs 08/01/17 08/01/17 08/01/17 18:52 19:00 19:30 Temperature Pulse Rate 71 69 69 Respiratory 24 20 24 Rate Blood Pressure 164/79 154/96 145/86 (mmHg) O2 Sat by Pulse 100 100 100 Oximetry 08/01/17 08/01/17 08/01/17 20:00 20:06 20:29 Temperature Pulse Rate 70 Respiratory 31 24 26 Rate Blood Pressure (mmHg) O2 Sat by Pulse 100 Oximetry 08/01/17 08/01/17 08/01/17 21:00 21:01 21:30 Temperature 100.2 F Pulse Rate 70 70 70 Respiratory 23 23 24 Rate Blood Pressure 138/87 (mmHg) O2 Sat by Pulse 100 100 98 Oximetry 08/01/17 08/01/17 08/01/17 22:00 22:02 23:00 Temperature Pulse Rate 70 70 68 Respiratory 23 21 20 Rate Blood Pressure 138/87 (mmHg) O2 Sat by Pulse 100 100 100 Oximetry 08/01/17 08/01/17 08/01/17 23:01 23:33 23:56 Temperature 100.2 F Pulse Rate 70 70 Respiratory 21 17 Rate Blood Pressure 98/77 (mmHg) O2 Sat by Pulse 100 100 Oximetry 08/02/17 08/02/17 08/02/17 00:00 00:19 01:00 Temperature Pulse Rate 70 70 70 Respiratory 17 17 21 Rate Blood Pressure 154/119 176/90 (mmHg) O2 Sat by Pulse 100 100 100 Oximetry 08/02/17 08/02/17 08/02/17 02:00 02:01 02:03 Temperature Pulse Rate 70 70 70 Respiratory 16 15 16 Rate Blood Pressure 141/69 141/69 (mmHg) O2 Sat by Pulse 100 100 100 Oximetry 08/02/17 08/02/17 08/02/17 03:00 03:01 04:00 Temperature 100.5 F Pulse Rate 70 70 70 Respiratory 17 18 17 Rate Blood Pressure 115/47 113/50 (mmHg) O2 Sat by Pulse 100 100 100 Oximetry 08/02/17 08/02/17 08/02/17 05:00 05:33 05:50 Temperature Pulse Rate 70 70 Respiratory 16 22 14 Rate Blood Pressure 105/44 (mmHg) O2 Sat by Pulse 100 100 Oximetry 08/02/17 08/02/17 08/02/17 06:00 06:01 07:00 Temperature Pulse Rate 70 70 70 Respiratory 14 15 20 Rate Blood Pressure 121/52 136/77 (mmHg) O2 Sat by Pulse 99 100 100 Oximetry 08/02/17 08/02/17 08/02/17 07:36 08:00 09:00 Temperature 99.6 F Pulse Rate 70 70 Respiratory 15 21 Rate Blood Pressure 132/59 152/83 (mmHg) O2 Sat by Pulse 100 100 Oximetry 08/02/17 08/02/17 10:00 11:00 Temperature Pulse Rate 71 70 Respiratory 15 19 Rate Blood Pressure 152/77 150/78 (mmHg) O2 Sat by Pulse 100 100 Oximetry Oxygen Devices in Use Now: High Flow Nasal Cannula - at 40 L Vapotherm Appearance: 76 yo F in NAD, AAOx2, unalbe to tell me today's date, or her age, remembers , very poor recall Eyes: No Scleral Icterus, PERRLA Ears/Nose/Mouth/Throat: NL Teeth, Lips, Gums, Mucous Membranes Moist Neck: NL Appearance and Movements; NL JVP, Trachea Midline Respiratory: Symmetrical Chest Expansion and Respiratory Effort, - - rales b/l lower to mid lungs Cardiovascular: NL Sounds; No Murmurs; No JVD, RRR Abdominal: NL Sounds; No Tenderness; No Distention Lymphatic: No Cervical Adenopathy Extremities: No Edema, No Clubbing, Cyanosis, - - left hand amputated remotely Skin: No Rash or Ulcers, No Nodules or Sclerosis Neurological: NL Muscle Strength and Tone Result Diagrams: 08/02/17 12:08 08/02/17 11:01 Additional Lab and Data: Lab Results 08/01/17 08/01/17 08/01/17 Range/Units 17:13 17:13 17:13 WBC (3.5-10.8) 10^3/ul RBC (4.0-5.4) 10^6/ul Hgb (12.0-16.0) g/dl Hct (35-47) % MCV (80-97) fL MCH (27-31) pg MCHC (31-36) g/dl RDW (10.5-15) % Plt Count (150-450) 10^3/ul MPV (7.4-10.4) um3 Neut % (Auto) (38-83) % Lymph % (Auto) (25-47) % [place] % (Auto) (1-9) % Eos % (Auto) (0-6) % Baso % (Auto) (0-2) % Absolute Neuts (auto) (1.5-7.7) 10^3/ul Absolute Lymphs (auto) (1.0-4.8) 10^3/ul Absolute Monos (auto) (0-0.8) 10^3/ul Absolute Eos (auto) (0-0.6) 10^3/ul Absolute Basos (auto) (0-0.2) 10^3/ul Absolute Nucleated RBC 10^3/ul Nucleated RBC % INR (Anticoag Therapy) 1.56 H (0.89-1.11) APTT 31.4 (26.0-36.3) seconds Sodium 134 (133-145) mmol/L Potassium 4.4 (3.5-5.0) mmol/L Chloride 105 (101-111) mmol/L Carbon Dioxide 23 (22-32) mmol/L Anion Gap 6 (2-11) mmol/L BUN 29 H (6-24) mg/dL Creatinine 1.33 H (0.51-0.95) mg/dL Est GFR ( Amer) 49.8 (>60) Est GFR (Non-Af Amer) 38.7 (>60) BUN/Creatinine Ratio 21.8 H (8-20) Glucose 90 (70-100) mg/dL Lactic Acid (0.5-2.0) mmol/L Calcium 8.9 (8.6-10.3) mg/dL Magnesium 1.9 (1.9-2.7) mg/dL Total Bilirubin 0.40 (0.2-1.0) mg/dL AST 28 (13-39) U/L ALT 17 (7-52) U/L Alkaline Phosphatase 76 (34-104) U/L Total Creatine Kinase 42 (10-223) U/L CK-MB (CK-2) 4.2 (0.6-6.3) ng/mL Troponin I 0.13 H* (<0.04) ng/mL C-Reactive Protein 25.29 H (< 5.00) mg/L B-Natriuretic Peptide 1760 H ( - 100) pg/mL Total Protein 6.6 (6.4-8.9) g/dL Albumin 3.4 (3.2-5.2) g/dL Globulin 3.2 (2-4) g/dL Albumin/Globulin Ratio 1.1 (1-3) Lipase 105 H (11.0-82.0) U/L TSH 1.85 (0.34-5.60) mcIU/mL 08/01/17 08/01/17 Range/Units 17:13 17:13 WBC 10.1 (3.5-10.8) 10^3/ul RBC 2.65 L (4.0-5.4) 10^6/ul Hgb 8.6 L (12.0-16.0) g/dl Hct 27 L (35-47) % MCV 103 H (80-97) fL MCH 33 H (27-31) pg MCHC 32 (31-36) g/dl RDW 17 H (10.5-15) % Plt Count 342 (150-450) 10^3/ul MPV 7 L (7.4-10.4) um3 Neut % (Auto) 81.7 (38-83) % Lymph % (Auto) 6.3 L (25-47) % [place] % (Auto) 10.9 H (1-9) % Eos % (Auto) 0.2 (0-6) % Baso % (Auto) 0.9 (0-2) % Absolute Neuts (auto) 8.2 H (1.5-7.7) 10^3/ul Absolute Lymphs (auto) 0.6 L (1.0-4.8) 10^3/ul Absolute Monos (auto) 1.1 H (0-0.8) 10^3/ul Absolute Eos (auto) 0 (0-0.6) 10^3/ul Absolute Basos (auto) 0.1 (0-0.2) 10^3/ul Absolute Nucleated RBC 0.06 10^3/ul Nucleated RBC % 0.6 INR (Anticoag Therapy) (0.89-1.11) APTT (26.0-36.3) seconds Sodium (133-145) mmol/L Potassium (3.5-5.0) mmol/L Chloride (101-111) mmol/L Carbon Dioxide (22-32) mmol/L Anion Gap (2-11) mmol/L BUN (6-24) mg/dL Creatinine (0.51-0.95) mg/dL Est GFR ( Amer) (>60) Est GFR (Non-Af Amer) (>60) BUN/Creatinine Ratio (8-20) Glucose (70-100) mg/dL Lactic Acid 0.9 (0.5-2.0) mmol/L Calcium (8.6-10.3) mg/dL Magnesium (1.9-2.7) mg/dL Total Bilirubin (0.2-1.0) mg/dL AST (13-39) U/L ALT (7-52) U/L Alkaline Phosphatase (34-104) U/L Total Creatine Kinase (10-223) U/L CK-MB (CK-2) (0.6-6.3) ng/mL Troponin I (<0.04) ng/mL C-Reactive Protein (< 5.00) mg/L B-Natriuretic Peptide ( - 100) pg/mL Total Protein (6.4-8.9) g/dL Albumin (3.2-5.2) g/dL Globulin (2-4) g/dL Albumin/Globulin Ratio (1-3) Lipase (11.0-82.0) U/L TSH (0.34-5.60) mcIU/mL Microbiology and Other Data: Microbiology 08/01/17 19:10 Nasal Screen MRSA (PCR)(TONYA) - Final Nasal Mrsa Negative Assess/Plan/Problems-Billing Assessment: 76 yo female with PMHx significant for RA, aplastic anemia ( due to methotrexate), chronic diastolic HF, CKD, HTN, GERD, hypothyroidism, MR repair, pacer for 3 rd degree AV block, a. fib on coumadin who presented to the emergency room with complaints of SOB and PND. [place] [facility] [facility] [place]. Pt cannot recall what dose of Lasix she was at home prior to her last hospital stay. As per review of medical records she was on cardiac diet at [place]. - Patient Problems (1) Acute on chronic diastolic (congestive) heart failure Comment: Still seems overloaded on exam. Will cont IV lasix BID.Repeat Echo ordered. Strict I/O. Low sodium diet. Will get additional troponin. (2) Anemia Comment: macrocytic. h/o aplastic anemia due to methotrexate that resolved in the past. now Hb at new baseline of 8. TIBC 371 (05/27/17), Fe 267 (05/27/17), retic count 7.7 (07/27/17) , B12 918 (07/27/17), folate>20(07/27/17), stool heme neg (07/28/17) will d/c hematology in AM. (3) Elevated troponin Comment: Troponin 0.13 Suspect demand ischemia Echo and f/u trop pending (4) CKD (chronic kidney disease) Comment: Creatinine st beseline on 08/01/17 today's labs pending (5) Hypothyroidism Comment: Continue levothyroxine. (6) Rheumatoid arthritis Comment: Contiune home plaquenil (7) DVT prophylaxis Comment: increased coumadin from 5 to 6 mg daily. check INR daily cover with [facility] when not therapeutic Status and Disposition: inpatient
[2017-08-02 11:40] LABS: BUN/Creatinine Ratio 22.5 (8-20); Calcium 8.4 mg/dL (8.6-10.3); EGFR African American 51.5 (>60); EGFR Non-African American 40.1 (>60); Potassium 3.8 mmol/L (3.5-5.0)
[2017-08-02 11:51] LABS: Troponin I 0.11 ng/mL (<0.04)
[2017-08-02 12:29] LABS: Add Diff/Slide Review? Manual Diff Added; Comments Flag Yes; Hematocrit 29 % (35-47); Hemoglobin 8.9 g/dl (12.0-16.0); Mean Corpuscular HGB Conc 31 g/dl (31-36); Mean Corpuscular Hemoglobin 32 pg (27-31); Mean Corpuscular Volume 103 fL (80-97); Mean Platelet Volume 8 um3 (7.4-10.4); Red Blood Count 2.78 10^6/ul (4.0-5.4); Red Cell Distribution Width 17 % (10.5-15); White Blood Count 11.7 10^3/ul (3.5-10.8)
[2017-08-02 12:50] LABS: Hypochromasia 1+; Neutrophil % 82 % (38-83); Polychromasia 1+; Reactive Lymph % 1 % (0-6)
[2017-08-02 12:51] LABS: Add Path Review? YES
[2017-08-02] MEDS: Heparin VIAL(*) 5000 UNITS/ML VIAL (FIVE THOUSAND) SUBCUT SCH ×2 (14:15→22:11)
[2017-08-02] MEDS: Warfarin TAB(*) 6 MG PO SCH (17:00)
[2017-08-02] MEDS ORDERED: Warfarin TAB(*) 5 MG PO SCH (17:00)
[2017-08-02] MEDS: Donepezil TAB* 5 MG PO SCH (17:01)
[2017-08-02] MEDS: QUEtiapine TAB* 25 MG PO SCH (20:14)
[2017-08-03] MEDS: Levothyroxine TAB* 125 MCG TAB PO SCH (05:35)
[2017-08-03] MEDS: Heparin VIAL(*) 5000 UNITS/ML VIAL (FIVE THOUSAND) SUBCUT SCH ×3 (05:35→21:27)
[2017-08-03] MEDS: Furosemide IV* 10 MG/ML 10 ML VIAL (100 MG) IV SCH ×2 (08:05→19:49)
[2017-08-03] MEDS: guaiFENesin ER TAB 600 MG PO SCH ×2 (08:05→21:29)
[2017-08-03] MEDS: Ferrous Gluconate TAB* 324 MG TAB PO SCH ×2 (08:05→21:30)
[2017-08-03] MEDS: Folic Acid TAB* 1 MG PO SCH (08:05)
[2017-08-03] MEDS: Potassium Chlor TAB* 10 MEQ TAB.ER PO SCH ×2 (08:06→21:29)
[2017-08-03] MEDS: Famotidine TAB* 20 MG PO SCH (08:06)
--- NOTE | 2017-08-03 10:40 | PN ---
Subjective Date of Service: 08/03/17 Interval History: Pt still feels poorly due to SOB, but down to 6L NC(high flow) Objective Active Medications: Albuterol (Ventolin 2.5 Mg/3 Ml Neb.Rika*) 2.5 mg INH Q4H PRN PRN Reason: SOB/WHEEZING Albuterol (Ventolin 2.5 Mg/3 Ml Neb.Rika*) 2.5 mg INH [id number] Donepezil HCl (Aricept Tab*) 10 mg PO QPM [facility] Last Admin: 08/02/17 17:01 Dose: 10 mg Famotidine (Pepcid Tab*) 20 mg PO DAILY [facility] Last Admin: 08/03/17 08:06 Dose: 20 mg Ferrous Gluconate (Fergon Tab*) 324 mg PO BID [facility] Last Admin: 08/03/17 08:05 Dose: 324 mg Folic Acid (Folvite Tab*) 1 mg PO DAILY [facility] Last Admin: 08/03/17 08:05 Dose: 1 mg Furosemide (Lasix Iv*) 40 mg IV 0800,1700 [facility] Last Admin: 08/03/17 08:05 Dose: 40 mg Guaifenesin (Mucinex*) 1,200 mg PO BID [facility] Last Admin: 08/03/17 08:05 Dose: 1,200 mg Heparin Sodium (Porcine) (Heparin Vial(*)) 5,000 units SUBCUT Q8HR [facility] Last Admin: 08/03/17 05:35 Dose: 5,000 units Hydroxychloroquine Sulfate (Plaquenil Tab*) 200 mg PO DAILY [facility] Last Admin: 08/02/17 08:37 Dose: 200 mg Levothyroxine Sodium (Synthroid Tab*) 125 mcg PO 0600 [facility] Last Admin: 08/03/17 05:35 Dose: 125 mcg Pharmacy Profile Note (Coumadin Daily Reminder*) 0 note FOLLOW UP 1700 [facility] Last Admin: 08/02/17 17:01 Dose: 6 note Potassium Chloride (Klor Con Er Tab*) 10 meq PO BID [facility] Last Admin: 08/03/17 08:06 Dose: 10 meq Quetiapine Fumarate (Seroquel Tab*) 12.5 mg PO BEDTIME [facility] Last Admin: 08/02/17 20:14 Dose: 12.5 mg Tramadol HCl (Ultram*) 50 mg PO TID PRN PRN Reason: PAIN Last Admin: 08/02/17 01:53 Dose: 50 mg Warfarin Sodium (Coumadin Tab(*)) 6 mg PO DAILY@1700 [facility] PRN Reason: Protocol Last Admin: 08/02/17 17:00 Dose: 6 mg Vital Signs 08/02/17 08/02/17 08/02/17 11:00 12:00 13:00 Temperature Pulse Rate 70 70 70 Respiratory 19 26 20 Rate Blood Pressure 150/78 156/96 162/79 (mmHg) O2 Sat by Pulse 100 100 100 Oximetry 08/02/17 08/02/17 08/02/17 14:00 14:01 15:00 Temperature Pulse Rate 69 70 70 Respiratory 14 17 20 Rate Blood Pressure 116/59 143/71 (mmHg) O2 Sat by Pulse 100 100 100 Oximetry 08/02/17 08/02/17 08/02/17 16:00 17:00 18:00 Temperature Pulse Rate 70 70 70 Respiratory 19 29 21 Rate Blood Pressure 140/74 149/71 146/73 (mmHg) O2 Sat by Pulse 100 100 100 Oximetry 08/02/17 08/02/17 08/02/17 19:00 19:01 20:00 Temperature 99.8 F Pulse Rate 70 70 70 Respiratory 18 26 16 Rate Blood Pressure 138/65 158/77 (mmHg) O2 Sat by Pulse 100 100 100 Oximetry 08/02/17 08/02/17 08/02/17 20:27 21:00 22:00 Temperature Pulse Rate 70 69 Respiratory 16 14 22 Rate Blood Pressure 153/87 134/73 (mmHg) O2 Sat by Pulse 100 100 Oximetry 08/02/17 08/02/17 08/02/17 22:10 23:00 23:27 Temperature 99.4 F Pulse Rate 65 Respiratory 14 29 Rate Blood Pressure 131/64 (mmHg) O2 Sat by Pulse 100 Oximetry 08/02/17 08/03/17 08/03/17 23:28 00:00 00:19 Temperature Pulse Rate 70 Respiratory 24 17 19 Rate Blood Pressure 113/70 (mmHg) O2 Sat by Pulse 100 Oximetry 08/03/17 08/03/17 08/03/17 01:00 01:06 02:00 Temperature Pulse Rate 70 70 Respiratory 17 16 18 Rate Blood Pressure 152/74 108/53 (mmHg) O2 Sat by Pulse 100 100 Oximetry 08/03/17 08/03/17 08/03/17 02:10 02:55 03:00 Temperature Pulse Rate 70 Respiratory 17 16 15 Rate Blood Pressure 126/70 (mmHg) O2 Sat by Pulse 100 Oximetry 08/03/17 08/03/17 08/03/17 04:00 05:00 06:00 Temperature 98.1 F Pulse Rate 70 70 70 Respiratory 23 19 18 Rate Blood Pressure 115/59 125/68 131/64 (mmHg) O2 Sat by Pulse 98 100 100 Oximetry 08/03/17 08/03/17 08/03/17 06:10 07:00 07:49 Temperature 98.8 F Pulse Rate 70 Respiratory 19 24 Rate Blood Pressure 150/90 (mmHg) O2 Sat by Pulse 100 Oximetry 08/03/17 08/03/17 08/03/17 08:00 09:00 09:15 Temperature Pulse Rate 70 71 56 Respiratory 16 29 20 Rate Blood Pressure 147/78 139/79 (mmHg) O2 Sat by Pulse 100 99 99 Oximetry 08/03/17 10:00 Temperature Pulse Rate 59 Respiratory 18 Rate Blood Pressure 151/88 (mmHg) O2 Sat by Pulse 98 Oximetry Oxygen Devices in Use Now: High Flow Nasal Cannula - at 6L Appearance: 76 yo F in nAD, AAOx2 Eyes: No Scleral Icterus, PERRLA Ears/Nose/Mouth/Throat: NL Teeth, Lips, Gums, Mucous Membranes Moist Neck: NL Appearance and Movements; NL JVP, Trachea Midline Respiratory: Symmetrical Chest Expansion and Respiratory Effort, - - difuse wheezes b/l Cardiovascular: NL Sounds; No Murmurs; No JVD, - - irrgaular Abdominal: NL Sounds; No Tenderness; No Distention, No Hepatosplenomegaly Lymphatic: No Cervical Adenopathy Extremities: No Clubbing, Cyanosis, - - trace pedal edema b/l Skin: No Rash or Ulcers, No Nodules or Sclerosis Neurological: NL Muscle Strength and Tone Result Diagrams: 08/02/17 12:08 08/02/17 11:01 Additional Lab and Data: Lab Results 08/01/17 08/01/17 08/01/17 Range/Units 17:13 17:13 17:13 WBC (3.5-10.8) 10^3/ul RBC (4.0-5.4) 10^6/ul Hgb (12.0-16.0) g/dl Hct (35-47) % MCV (80-97) fL MCH (27-31) pg MCHC (31-36) g/dl RDW (10.5-15) % Plt Count (150-450) 10^3/ul MPV (7.4-10.4) um3 Neut % (Auto) (38-83) % Lymph % (Auto) (25-47) % [place] % (Auto) (1-9) % Eos % (Auto) (0-6) % Baso % (Auto) (0-2) % Absolute Neuts (auto) (1.5-7.7) 10^3/ul Absolute Lymphs (auto) (1.0-4.8) 10^3/ul Absolute Monos (auto) (0-0.8) 10^3/ul Absolute Eos (auto) (0-0.6) 10^3/ul Absolute Basos (auto) (0-0.2) 10^3/ul Absolute Nucleated RBC 10^3/ul Nucleated RBC % INR (Anticoag Therapy) 1.56 H (0.89-1.11) APTT 31.4 (26.0-36.3) seconds Sodium 134 (133-145) mmol/L Potassium 4.4 (3.5-5.0) mmol/L Chloride 105 (101-111) mmol/L Carbon Dioxide 23 (22-32) mmol/L Anion Gap 6 (2-11) mmol/L BUN 29 H (6-24) mg/dL Creatinine 1.33 H (0.51-0.95) mg/dL Est GFR ( Amer) 49.8 (>60) Est GFR (Non-Af Amer) 38.7 (>60) BUN/Creatinine Ratio 21.8 H (8-20) Glucose 90 (70-100) mg/dL Lactic Acid (0.5-2.0) mmol/L Calcium 8.9 (8.6-10.3) mg/dL Magnesium 1.9 (1.9-2.7) mg/dL Total Bilirubin 0.40 (0.2-1.0) mg/dL AST 28 (13-39) U/L ALT 17 (7-52) U/L Alkaline Phosphatase 76 (34-104) U/L Total Creatine Kinase 42 (10-223) U/L CK-MB (CK-2) 4.2 (0.6-6.3) ng/mL Troponin I 0.13 H* (<0.04) ng/mL C-Reactive Protein 25.29 H (< 5.00) mg/L B-Natriuretic Peptide 1760 H ( - 100) pg/mL Total Protein 6.6 (6.4-8.9) g/dL Albumin 3.4 (3.2-5.2) g/dL Globulin 3.2 (2-4) g/dL Albumin/Globulin Ratio 1.1 (1-3) Lipase 105 H (11.0-82.0) U/L TSH 1.85 (0.34-5.60) mcIU/mL 08/01/17 08/01/17 Range/Units 17:13 17:13 WBC 10.1 (3.5-10.8) 10^3/ul RBC 2.65 L (4.0-5.4) 10^6/ul Hgb 8.6 L (12.0-16.0) g/dl Hct 27 L (35-47) % MCV 103 H (80-97) fL MCH 33 H (27-31) pg MCHC 32 (31-36) g/dl RDW 17 H (10.5-15) % Plt Count 342 (150-450) 10^3/ul MPV 7 L (7.4-10.4) um3 Neut % (Auto) 81.7 (38-83) % Lymph % (Auto) 6.3 L (25-47) % [place] % (Auto) 10.9 H (1-9) % Eos % (Auto) 0.2 (0-6) % Baso % (Auto) 0.9 (0-2) % Absolute Neuts (auto) 8.2 H (1.5-7.7) 10^3/ul Absolute Lymphs (auto) 0.6 L (1.0-4.8) 10^3/ul Absolute Monos (auto) 1.1 H (0-0.8) 10^3/ul Absolute Eos (auto) 0 (0-0.6) 10^3/ul Absolute Basos (auto) 0.1 (0-0.2) 10^3/ul Absolute Nucleated RBC 0.06 10^3/ul Nucleated RBC % 0.6 INR (Anticoag Therapy) (0.89-1.11) APTT (26.0-36.3) seconds Sodium (133-145) mmol/L Potassium (3.5-5.0) mmol/L Chloride (101-111) mmol/L Carbon Dioxide (22-32) mmol/L Anion Gap (2-11) mmol/L BUN (6-24) mg/dL Creatinine (0.51-0.95) mg/dL Est GFR ( Amer) (>60) Est GFR (Non-Af Amer) (>60) BUN/Creatinine Ratio (8-20) Glucose (70-100) mg/dL Lactic Acid 0.9 (0.5-2.0) mmol/L Calcium (8.6-10.3) mg/dL Magnesium (1.9-2.7) mg/dL Total Bilirubin (0.2-1.0) mg/dL AST (13-39) U/L ALT (7-52) U/L Alkaline Phosphatase (34-104) U/L Total Creatine Kinase (10-223) U/L CK-MB (CK-2) (0.6-6.3) ng/mL Troponin I (<0.04) ng/mL C-Reactive Protein (< 5.00) mg/L B-Natriuretic Peptide ( - 100) pg/mL Total Protein (6.4-8.9) g/dL Albumin (3.2-5.2) g/dL Globulin (2-4) g/dL Albumin/Globulin Ratio (1-3) Lipase (11.0-82.0) U/L TSH (0.34-5.60) mcIU/mL Microbiology and Other Data: Microbiology 08/01/17 19:10 Nasal Screen MRSA (PCR)(TONYA) - Final Nasal Mrsa Negative Assess/Plan/Problems-Billing Assessment: 76 yo female with PMHx significant for RA, aplastic anemia ( due to methotrexate), chronic diastolic HF, CKD, HTN, GERD, hypothyroidism, MR repair, pacer for 3 rd degree AV block, a. fib on coumadin who presented to the emergency room with complaints of SOB and PND. Was discharged from [facility] [place] to [facility] on 07/28/17. Pt cannot recall what dose of Lasix she was at home prior to her last hospital stay. As per review of medical records she was on cardiac diet at [place]. - Patient Problems (1) Acute on chronic diastolic (congestive) heart failure Comment: Still seems overloaded on exam. Will cont IV lasix BID.Repeat Echo ordered. Strict I/O. Low sodium diet. (2) Anemia Comment: macrocytic. h/o aplastic anemia due to methotrexate that resolved in the past. now Hb at new baseline of 8. TIBC 371 (05/27/17), Fe 267 (05/27/17), retic count 7.7 (07/27/17) , B12 918 (07/27/17), folate>20(07/27/17), stool heme neg (07/28/17) consulted hematology (3) Elevated troponin Comment: Troponin 0.13-peaked Suspect demand ischemia Echo pending (4) CKD (chronic kidney disease) Comment: Creatinine st beseline (5) Hypothyroidism Comment: Continue levothyroxine. (6) Rheumatoid arthritis Comment: Contiune home plaquenil (7) DVT prophylaxis Comment: increased coumadin from 5 to 6 mg daily on 08/02/17 check INR daily cower with [facility] when not therapeutic Status and Disposition: inpatient
[2017-08-03 11:31] LABS: Comments Flag Yes; Corrected Retic Count 3.5 % (0.5-1.5); Immature Retic Fraction 0.66
[2017-08-03] MEDS: Hydroxychloroquine TAB* 200 MG PO SCH (11:38)
[2017-08-03 12:17] LABS: Ferritin 42.6 ng/mL (11-307)
[2017-08-03 12:21] LABS: Folate > 20.00 ng/mL (>3.99)
--- NOTE | 2017-08-03 13:24 | ECHO ---
Patient: CARMELINA HOLLAND [facility] Rec#: [id number] : 1940 Date: 08/03/2017 Age: 76y Height: 157.48 cm / 62.0 in Weight: 70.76 kg / 156.0 lbs Sex: F BSA: 1.72 Room#: ICU 3 Admit Date#: 08/01/2017 Type: Inpatient Referring: Sherry Keith MD Reading: Sharda Mccann MD Field Service Analyst: Ambika Oreilly RN RDCS CC: Matty Gutierrez MD Transthoracic Echocardiogram Indication: CHF BP: 131/64 HR: 70 Rhythm: Paced Findings History: Bioprosthetic MVR, A. fib, pacemaker, CHF, HTN, COPD, moderate TR, PHTN, CKD, hypothyroidism, RA, dementia Left Ventricle: The left ventricular chamber size is normal. Mild concentric left ventricular hypertrophy is observed. Global left ventricular wall motion and contractility are within normal limits. There is normal left ventricular systolic function. The estimated ejection fraction is 55-60%. Ventricular septal wall motion has a post-operative appearance. There is abnormal ventricular septal wall motion consistent with right ventricular pacemaker. The assessment of diastolic function is non-diagnostic. The patient was unable to perform a Valsalva maneuver. Left Atrium: The left atrium is moderately dilated. Right Ventricle: The right ventricular cavity size is normal. The right ventricular global systolic function is normal. A pacemaker wire is visualized in the right ventricle. Right Atrium: The right atrium is moderately dilated. A pacemaker wire is visualized in the right atrium. Aortic Valve: The aortic valve is trileaflet. The aortic valve leaflets are moderately thickened. Systolic excursion of the aortic valve cusps is reduced. There is mild to moderate aortic regurgitation. There is moderate aortic stenosis. The mean gradient of the aortic valve is 10.9 mmHg. The peak instantaneous gradient of the aortic valve is 21.1 mmHg. The aortic valve area, by peak velocities, is calculated at 1.2 cm2. The aortic valve area, by VTI's, is calculated at 1 cm2. Mitral Valve: There is mitral annular calcification. There is no evidence of mitral regurgitation. A bioprosthetic mitral valve is present. The bioprosthetic mitral valve appears to be functioning normally. Tricuspid Valve: The tricuspid valve leaflets are normal. There is severe tricuspid regurgitation. There is evidence of severe pulmonary hypertension. There is no tricuspid stenosis. Pulmonic Valve: The pulmonic valve appears normal. There is mild pulmonic regurgitation. There is no pulmonic stenosis. Pericardium: There is no significant pericardial effusion. A pericardial fat pad is visualized. Aorta: There is no dilatation of the ascending aorta. The aortic arch is not well visualized. There is no dilation of the aortic root. Pulmonary Artery: The main pulmonary artery is not well visualized. Venous: The inferior vena cava appears normal in size. There is an approximate 50% respiratory change in the inferior vena cava dimension. Summary: There are changes noted when compared to the previous study done on 05/06/2017, PHTN is now severe instead of moderate then. TR is now severe instead of moderate-severe then. Conclusions The left ventricular chamber size is normal. Mild concentric left ventricular hypertrophy is observed. The estimated ejection fraction is 55-60%. Ventricular septal wall motion has a post-operative appearance. There is abnormal ventricular septal wall motion consistent with right ventricular pacemaker. The assessment of diastolic function is non-diagnostic. The left atrium is moderately dilated. A pacemaker wire is visualized in the right ventricle. A pacemaker wire is visualized in the right atrium. There is mild to moderate aortic regurgitation. There is moderate aortic stenosis. A bioprosthetic mitral valve is present. The bioprosthetic mitral valve appears to be functioning normally. There is severe tricuspid regurgitation. There is evidence of severe pulmonary hypertension. There is mild pulmonic regurgitation. Measurements Name Value Normal Range RVDdMajor (2D) 3.3 cm (2.2 - 4.4) RAd ISD 4CH 5.3 cm (3.4 - 4.9) RA (A4C)W 5.5 cm (2.9 - 4.6) IVSd (2D) 1.3 cm (0.6 - 1) LVPWd (2D) 1.3 cm (0.6 - 1) IVS:LVPW ratio (2D) 0.96 ratio - LVIDd (2D) 4.8 cm (3.6 - 5.4) LVIDs (2D) 3.4 cm - LV FS (2D) 30 % (25 - 45) Aortic Annulus 2 cm (1.4 - 2.6) Ao root diameter (2D) 2.6 cm (2.1 - 3.5) Ascending Ao 2.9 cm (2.1 - 3.4) LA dimension (AP) 2D 4.8 cm (2.3 - 3.8) LAd ISD 4CH 5.6 cm (2.9 - 5.3) LA ISD 4CH W 5 cm (2.5 - 4.5) Name Value Normal Range MV E-wave Vmax 1.5 m/sec - MV deceleration time 264 msec - MV A-wave Vmax 0.42 m/sec - MV E:A ratio 3.5 ratio - LV septal e' Vmax 0.05 m/sec - LV lateral e' Vmax 0.11 m/sec - LV E:e' septal ratio 30 ratio - LV E:e' lateral ratio 13.6 ratio - Name Value Normal Range AV Vmax 2.3 m/sec - AV VTI 45.6 cm - AV peak gradient 21.1 mmHg - AV mean gradient 10.9 mmHg - LVOT diameter 2 cm - LVOT Vmax 0.85 m/sec - LVOT VTI 15.1 cm - LVOT peak gradient 2.9 mmHg - LVOT mean gradient 1.6 mmHg - DOI (VTI) 0.33 ratio - DOI (Vmax) 0.37 ratio - SV LVOT 47.4 ml - CO LVOT 3.3 l/min - Cardiac index 1.9 l/min/m2 - VINCENT (continuity Vmax) 1.2 cm2 - VINCENT (continuity VTI) 1 cm2 - AR PHT 419 msec - Name Value Normal Range MV Vmax 1.7 m/sec - MV VTI 39 cm - MV peak gradient 11.6 mmHg - MV mean gradient 3.7 mmHg - MV PHT 91 msec - MVA (PHT) 2.4 cm2 - MVA (continuity VTI) 1.2 cm2 - Name Value Normal Range TR Vmax 4.1 m/sec - TR peak gradient 67 mmHg - RAP 8 mmHg - RVSP 75 mmHg - IVC diameter 2 cm - Name Value Normal Range PV Vmax 1 m/sec - PV peak gradient 4 mmHg -
[2017-08-03] MEDS: Albuterol 2.5 MG/3 ML NEB.SOL* (0.083%) INH SCH ×2 (14:01→19:31)
--- NOTE | 2017-08-03 17:49 | PN ---
Progress Note - Progress Note Date of Service: 08/03/17 SOAP: Subjective: [] Admitted COPD and CHF. Continued SOB, better then when came to ER. Still not at baseline. No fevers or chills. Progressive macrocytic anemia. PMHx: - Aplastic anemia 2012. Likely immune mediated and responded to cyclosporine, but occured on MTX. Stable over past 4 years - Long standing macrocytic anemia. Albuterol (Ventolin 2.5 Mg/3 Ml Neb.Rika*) 2.5 mg INH Q4H PRN PRN Reason: SOB/WHEEZING Albuterol (Ventolin 2.5 Mg/3 Ml Neb.Rika*) 2.5 mg INH [id number] AWAKE [facility] Last Admin: 08/03/17 14:01 Dose: 2.5 mg Donepezil HCl (Aricept Tab*) 10 mg PO QPM [facility] Last Admin: 08/02/17 17:01 Dose: 10 mg Famotidine (Pepcid Tab*) 20 mg PO DAILY [facility] Last Admin: 08/03/17 08:06 Dose: 20 mg Ferrous Gluconate (Fergon Tab*) 324 mg PO BID [facility] Last Admin: 08/03/17 08:05 Dose: 324 mg Folic Acid (Folvite Tab*) 1 mg PO DAILY [facility] Last Admin: 08/03/17 08:05 Dose: 1 mg Furosemide (Lasix Iv*) 60 mg IV 0800,1700 [facility] Guaifenesin (Mucinex*) 1,200 mg PO BID [facility] Last Admin: 08/03/17 08:05 Dose: 1,200 mg Heparin Sodium (Porcine) (Heparin Vial(*)) 5,000 units SUBCUT Q8HR [facility] Last Admin: 08/03/17 14:29 Dose: 5,000 units Hydroxychloroquine Sulfate (Plaquenil Tab*) 200 mg PO DAILY [facility] Last Admin: 08/03/17 11:38 Dose: 200 mg Latanoprost (Xalatan 0.005%*) 1 drop BOTH EYES QPM [facility] Levothyroxine Sodium (Synthroid Tab*) 125 mcg PO 0600 [facility] Last Admin: 08/03/17 05:35 Dose: 125 mcg Magnesium Oxide (Magox 400 Tab*) 400 mg PO BID [facility] Pharmacy Profile Note (Coumadin Daily Reminder*) 0 note FOLLOW UP 1700 [facility] Last Admin: 08/02/17 17:01 Dose: 6 note Potassium Chloride (Klor Con Er Tab*) 10 meq PO BID [facility] Last Admin: 08/03/17 08:06 Dose: 10 meq Quetiapine Fumarate (Seroquel Tab*) 12.5 mg PO BEDTIME [facility] Last Admin: 08/02/17 20:14 Dose: 12.5 mg Tramadol HCl (Ultram*) 50 mg PO BID [facility] Warfarin Sodium (Coumadin Tab(*)) 6 mg PO DAILY@1700 [facility] PRN Reason: Protocol Last Admin: 08/02/17 17:00 Dose: 6 mg Objective: [] Vital Signs Temp Pulse Resp BP Pulse Ox 98.3 F 70 18 154/80 100 08/03/17 16:00 08/03/17 17:07 08/03/17 17:07 08/03/17 17:07 08/03/17 17:07 HEENT: Mucosa dry, pale. Wheezing throughout RRR S1S2 +BS, no spleen Ext No edema. Blood film: retuculcytes present, hypochromia, macrocytosis, some agglutination , not many spherocytes, leukocytosis, normal plts. No schistocytes. Assessment: []76 year old with history of aplastic anemia and now progressive macrocytic anemia. 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 No evidence of dysplasia or intravascular hemolysis. Plan: []1. Send cold agglutinins and follow CBC 2. Given reduced cardiac output will transfuse for Hgb < 8.0 3. Continue antibiotics. 4. If cold agglutinins negative could give trial of Prednisone 1 mg/kg for AIHA.
[2017-08-03] MEDS: Donepezil TAB* 5 MG PO SCH (19:49)
[2017-08-03] MEDS: Warfarin TAB(*) 6 MG PO SCH (19:49)
[2017-08-03] MEDS: Latanoprost 0.005%* 2.5 ml BTL BOTH EYES SCH (19:52)
[2017-08-03] MEDS: QUEtiapine TAB* 25 MG PO SCH (21:28)
[2017-08-03] MEDS: traMADol TAB* 50 MG PO SCH (21:28)
[2017-08-03] MEDS: Magnesium Oxide TAB* 400 MG PO SCH (21:29)
[2017-08-04] MEDS: Albuterol 2.5 MG/3 ML NEB.SOL* (0.083%) INH SCH ×2 (00:32→09:15)
[2017-08-04] MEDS: Heparin VIAL(*) 5000 UNITS/ML VIAL (FIVE THOUSAND) SUBCUT SCH ×3 (05:52→20:29)
[2017-08-04] MEDS: Levothyroxine TAB* 125 MCG TAB PO SCH (05:52)
[2017-08-04 06:30] LABS: EGFR African American 47.7 (>60); EGFR Non-African American 37.1 (>60)
[2017-08-04 06:32] LABS: Potassium 2.6 mmol/L (3.5-5.0)
[2017-08-04] MEDS: Potassium Chlor TAB* 20 MEQ TAB.ER PO SCH ×2 (06:58→11:07)
--- NOTE | 2017-08-04 08:18 | PN ---
Subjective Date of Service: 08/04/17 Interval History: pt was sundowning last night. This AM much more lucid. Cannot remember what really happened in the past few days Objective Active Medications: Albuterol (Ventolin 2.5 Mg/3 Ml Neb.Rika*) 2.5 mg INH Q4H PRN PRN Reason: SOB/WHEEZING Albuterol (Ventolin 2.5 Mg/3 Ml Neb.Rika*) 2.5 mg INH [id number] AWAKE [facility] Last Admin: 08/04/17 00:32 Dose: Not Given Donepezil HCl (Aricept Tab*) 10 mg PO QPM [facility] Last Admin: 08/03/17 19:49 Dose: 10 mg Famotidine (Pepcid Tab*) 20 mg PO DAILY [facility] Last Admin: 08/03/17 08:06 Dose: 20 mg Ferrous Gluconate (Fergon Tab*) 324 mg PO BID [facility] Last Admin: 08/03/17 21:30 Dose: 324 mg Folic Acid (Folvite Tab*) 1 mg PO DAILY [facility] Last Admin: 08/03/17 08:05 Dose: 1 mg Furosemide (Lasix Iv*) 60 mg IV 0800,1700 [facility] Last Admin: 08/03/17 19:49 Dose: 60 mg Guaifenesin (Mucinex*) 1,200 mg PO BID [facility] Last Admin: 08/03/17 21:29 Dose: 1,200 mg Heparin Sodium (Porcine) (Heparin Vial(*)) 5,000 units SUBCUT Q8HR [facility] Last Admin: 08/04/17 05:52 Dose: 5,000 units Hydroxychloroquine Sulfate (Plaquenil Tab*) 200 mg PO DAILY [facility] Last Admin: 08/03/17 11:38 Dose: 200 mg Latanoprost (Xalatan 0.005%*) 1 drop BOTH EYES QPM [facility] Last Admin: 08/03/17 19:52 Dose: 1 drop Levothyroxine Sodium (Synthroid Tab*) 125 mcg PO 0600 [facility] Last Admin: 08/04/17 05:52 Dose: 125 mcg Magnesium Oxide (Magox 400 Tab*) 400 mg PO BID [facility] Last Admin: 08/03/17 21:29 Dose: 400 mg Pharmacy Profile Note (Coumadin Daily Reminder*) 0 note FOLLOW UP 1700 [facility] Last Admin: 08/03/17 19:51 Dose: 6 note Potassium Chloride (Klor Con Er Tab*) 10 meq PO BID [facility] Last Admin: 08/03/17 21:29 Dose: 10 meq Potassium Chloride (Klor Con Er Tab*) 40 meq PO Q4H [facility] Stop: 08/04/17 10:31 Last Admin: 08/04/17 06:58 Dose: 40 meq Quetiapine Fumarate (Seroquel Tab*) 12.5 mg PO BEDTIME [facility] Last Admin: 08/03/17 21:28 Dose: 12.5 mg Tramadol HCl (Ultram*) 50 mg PO BID [facility] Last Admin: 08/03/17 21:28 Dose: 50 mg Warfarin Sodium (Coumadin Tab(*)) 6 mg PO DAILY@1700 [facility] PRN Reason: Protocol Last Admin: 08/03/17 19:49 Dose: 6 mg Vital Signs 08/03/17 08/03/17 08/03/17 09:00 09:15 10:00 Temperature Pulse Rate 71 56 59 Respiratory 29 20 18 Rate Blood Pressure 139/79 151/88 (mmHg) O2 Sat by Pulse 99 99 98 Oximetry 08/03/17 08/03/17 08/03/17 11:00 12:00 13:00 Temperature 98.5 F Pulse Rate 70 78 70 Respiratory 19 20 21 Rate Blood Pressure 145/92 154/67 (mmHg) O2 Sat by Pulse 100 100 100 Oximetry 08/03/17 08/03/17 08/03/17 14:00 14:04 14:23 Temperature Pulse Rate 70 70 Respiratory 21 17 21 Rate Blood Pressure 131/63 (mmHg) O2 Sat by Pulse 100 100 Oximetry 08/03/17 08/03/17 08/03/17 15:00 16:00 17:00 Temperature 98.3 F Pulse Rate 56 70 70 Respiratory 21 20 28 Rate Blood Pressure 117/57 (mmHg) O2 Sat by Pulse 100 100 99 Oximetry 08/03/17 08/03/17 08/03/17 17:07 18:00 18:21 Temperature Pulse Rate 70 70 55 Respiratory 18 21 21 Rate Blood Pressure 154/80 152/66 (mmHg) O2 Sat by Pulse 100 95 100 Oximetry 08/03/17 08/03/17 08/03/17 19:00 19:31 20:00 Temperature 99.8 F Pulse Rate 70 99 70 Respiratory 19 19 21 Rate Blood Pressure 143/77 161/94 (mmHg) O2 Sat by Pulse 100 100 99 Oximetry 08/03/17 08/03/17 08/03/17 21:00 22:00 23:00 Temperature Pulse Rate 54 67 Respiratory 23 23 20 Rate Blood Pressure 156/75 164/81 (mmHg) O2 Sat by Pulse 98 97 Oximetry 08/03/17 08/03/17 08/04/17 23:01 23:51 00:00 Temperature 100.1 F Pulse Rate 70 70 Respiratory 24 18 Rate Blood Pressure 137/64 128/56 (mmHg) O2 Sat by Pulse 97 93 Oximetry 08/04/17 08/04/17 08/04/17 00:12 01:00 01:01 Temperature Pulse Rate 70 70 70 Respiratory 15 15 21 Rate Blood Pressure 97/60 (mmHg) O2 Sat by Pulse 92 99 99 Oximetry 08/04/17 08/04/17 08/04/17 02:00 03:00 03:57 Temperature 98.1 F Pulse Rate 70 70 Respiratory 24 21 Rate Blood Pressure 131/61 121/60 (mmHg) O2 Sat by Pulse 100 99 Oximetry 08/04/17 08/04/17 08/04/17 04:00 04:03 05:00 Temperature Pulse Rate 70 70 63 Respiratory 16 16 16 Rate Blood Pressure 100/59 100/59 (mmHg) O2 Sat by Pulse 98 98 99 Oximetry 08/04/17 08/04/17 08/04/17 05:02 06:00 07:00 Temperature Pulse Rate 65 75 73 Respiratory 15 21 27 Rate Blood Pressure 123/46 122/62 142/72 (mmHg) O2 Sat by Pulse 99 100 99 Oximetry 08/04/17 07:38 Temperature Pulse Rate Respiratory 15 Rate Blood Pressure (mmHg) O2 Sat by Pulse Oximetry Oxygen Devices in Use Now: Nasal Cannula - at 2L Appearance: 76 yo F in nAD, AAOx2 Eyes: No Scleral Icterus, PERRLA Ears/Nose/Mouth/Throat: NL Teeth, Lips, Gums, Mucous Membranes Moist Neck: NL Appearance and Movements; NL JVP, Trachea Midline Respiratory: Symmetrical Chest Expansion and Respiratory Effort, - - bibasiliar rhonchi Cardiovascular: NL Sounds; No Murmurs; No JVD, - - irregular Abdominal: NL Sounds; No Tenderness; No Distention, No Hepatosplenomegaly Lymphatic: No Cervical Adenopathy Extremities: No Edema, No Clubbing, Cyanosis Skin: No Rash or Ulcers, No Nodules or Sclerosis Neurological: NL Muscle Strength and Tone Result Diagrams: 08/02/17 12:08 08/04/17 06:00 Additional Lab and Data: Lab Results 08/01/17 08/01/17 08/01/17 Range/Units 17:13 17:13 17:13 WBC (3.5-10.8) 10^3/ul RBC (4.0-5.4) 10^6/ul Hgb (12.0-16.0) g/dl Hct (35-47) % MCV (80-97) fL MCH (27-31) pg MCHC (31-36) g/dl RDW (10.5-15) % Plt Count (150-450) 10^3/ul MPV (7.4-10.4) um3 Neut % (Auto) (38-83) % Lymph % (Auto) (25-47) % Yell % (Auto) (1-9) % Eos % (Auto) (0-6) % Baso % (Auto) (0-2) % Absolute Neuts (auto) (1.5-7.7) 10^3/ul Absolute Lymphs (auto) (1.0-4.8) 10^3/ul Absolute Monos (auto) (0-0.8) 10^3/ul Absolute Eos (auto) (0-0.6) 10^3/ul Absolute Basos (auto) (0-0.2) 10^3/ul Absolute Nucleated RBC 10^3/ul Nucleated RBC % INR (Anticoag Therapy) 1.56 H (0.89-1.11) APTT 31.4 (26.0-36.3) seconds Sodium 134 (133-145) mmol/L Potassium 4.4 (3.5-5.0) mmol/L Chloride 105 (101-111) mmol/L Carbon Dioxide 23 (22-32) mmol/L Anion Gap 6 (2-11) mmol/L BUN 29 H (6-24) mg/dL Creatinine 1.33 H (0.51-0.95) mg/dL Est GFR ( Amer) 49.8 (>60) Est GFR (Non-Af Amer) 38.7 (>60) BUN/Creatinine Ratio 21.8 H (8-20) Glucose 90 (70-100) mg/dL Lactic Acid (0.5-2.0) mmol/L Calcium 8.9 (8.6-10.3) mg/dL Magnesium 1.9 (1.9-2.7) mg/dL Total Bilirubin 0.40 (0.2-1.0) mg/dL AST 28 (13-39) U/L ALT 17 (7-52) U/L Alkaline Phosphatase 76 (34-104) U/L Total Creatine Kinase 42 (10-223) U/L CK-MB (CK-2) 4.2 (0.6-6.3) ng/mL Troponin I 0.13 H* (<0.04) ng/mL C-Reactive Protein 25.29 H (< 5.00) mg/L B-Natriuretic Peptide 1760 H ( - 100) pg/mL Total Protein 6.6 (6.4-8.9) g/dL Albumin 3.4 (3.2-5.2) g/dL Globulin 3.2 (2-4) g/dL Albumin/Globulin Ratio 1.1 (1-3) Lipase 105 H (11.0-82.0) U/L TSH 1.85 (0.34-5.60) mcIU/mL 08/01/17 08/01/17 Range/Units 17:13 17:13 WBC 10.1 (3.5-10.8) 10^3/ul RBC 2.65 L (4.0-5.4) 10^6/ul Hgb 8.6 L (12.0-16.0) g/dl Hct 27 L (35-47) % MCV 103 H (80-97) fL MCH 33 H (27-31) pg MCHC 32 (31-36) g/dl RDW 17 H (10.5-15) % Plt Count 342 (150-450) 10^3/ul MPV 7 L (7.4-10.4) um3 Neut % (Auto) 81.7 (38-83) % Lymph % (Auto) 6.3 L (25-47) % Yell % (Auto) 10.9 H (1-9) % Eos % (Auto) 0.2 (0-6) % Baso % (Auto) 0.9 (0-2) % Absolute Neuts (auto) 8.2 H (1.5-7.7) 10^3/ul Absolute Lymphs (auto) 0.6 L (1.0-4.8) 10^3/ul Absolute Monos (auto) 1.1 H (0-0.8) 10^3/ul Absolute Eos (auto) 0 (0-0.6) 10^3/ul Absolute Basos (auto) 0.1 (0-0.2) 10^3/ul Absolute Nucleated RBC 0.06 10^3/ul Nucleated RBC % 0.6 INR (Anticoag Therapy) (0.89-1.11) APTT (26.0-36.3) seconds Sodium (133-145) mmol/L Potassium (3.5-5.0) mmol/L Chloride (101-111) mmol/L Carbon Dioxide (22-32) mmol/L Anion Gap (2-11) mmol/L BUN (6-24) mg/dL Creatinine (0.51-0.95) mg/dL Est GFR ( Amer) (>60) Est GFR (Non-Af Amer) (>60) BUN/Creatinine Ratio (8-20) Glucose (70-100) mg/dL Lactic Acid 0.9 (0.5-2.0) mmol/L Calcium (8.6-10.3) mg/dL Magnesium (1.9-2.7) mg/dL Total Bilirubin (0.2-1.0) mg/dL AST (13-39) U/L ALT (7-52) U/L Alkaline Phosphatase (34-104) U/L Total Creatine Kinase (10-223) U/L CK-MB (CK-2) (0.6-6.3) ng/mL Troponin I (<0.04) ng/mL C-Reactive Protein (< 5.00) mg/L B-Natriuretic Peptide ( - 100) pg/mL Total Protein (6.4-8.9) g/dL Albumin (3.2-5.2) g/dL Globulin (2-4) g/dL Albumin/Globulin Ratio (1-3) Lipase (11.0-82.0) U/L TSH (0.34-5.60) mcIU/mL Microbiology and Other Data: Microbiology 08/01/17 19:10 Nasal Screen MRSA (PCR)(TONYA) - Final Nasal Mrsa Negative Assess/Plan/Problems-Billing Assessment: 76 yo female with PMHx significant for RA, aplastic anemia ( due to methotrexate), chronic diastolic HF, CKD, HTN, GERD, hypothyroidism, tricuspid valve repair, biprostetic mitral valve, renal artery stenosis (stent on L), aortic stenosis, pacer for 3 rd degree AV block, a. fib on coumadin who presented to the emergency room with complaints of SOB and PND. Was discharged from [facility] to [facility] on 07/28/17. Pt cannot recall what dose of Lasix she was at home prior to her last hospital stay (from d/w son and review of med records- she was on Lasix 80 in AM and 60 QPM + Zaroxolyn 2x/week at home). As per review of medical records she was on cardiac diet at [place]. - Patient Problems (1) Acute on chronic diastolic (congestive) heart failure Comment: Still seems mildly overloaded on exam. Will cont IV lasix BID-start titrating down the dose.Repeat Echo shows moderate , well functioning mitral vave and severe TR. Strict I/O. Low sodium diet. (2) Anemia Comment: macrocytic. h/o aplastic anemia due to methotrexate that resolved in the past. now Hb at new baseline of 8. TIBC 371 (05/27/17), Fe 267 (05/27/17), retic count 7.7 (07/27/17) , B12 918 (07/27/17), folate>20(07/27/17), stool heme neg (07/28/17) consulted hematology , appreciate recommendations, haptoglobin levels and cold agglutinins pending (3) Elevated troponin Comment: Troponin 0.13-peaked Suspect demand ischemia (4) CKD (chronic kidney disease) Comment: Creatinine at [place] (5) Hypothyroidism Comment: Continue levothyroxine. (6) Rheumatoid arthritis Comment: Contiune home plaquenil (7) DVT prophylaxis Comment: increased coumadin from 5 to 6 mg daily on 08/02/17 check INR daily cower with SQH when not therapeutic Status and Disposition: inpatient
[2017-08-04] MEDS: Hydroxychloroquine TAB* 200 MG PO SCH (08:22)
[2017-08-04] MEDS: Potassium Chlor TAB* 10 MEQ TAB.ER PO SCH ×2 (08:23→20:26)
[2017-08-04] MEDS: traMADol TAB* 50 MG PO SCH ×2 (08:23→20:28)
[2017-08-04] MEDS: Folic Acid TAB* 1 MG PO SCH (08:23)
[2017-08-04] MEDS: Famotidine TAB* 20 MG PO SCH (08:23)
[2017-08-04] MEDS: Magnesium Oxide TAB* 400 MG PO SCH ×2 (08:23→20:27)
[2017-08-04] MEDS: Ferrous Gluconate TAB* 324 MG TAB PO SCH ×2 (08:23→20:27)
[2017-08-04] MEDS: guaiFENesin ER TAB 600 MG PO SCH ×2 (08:23→20:26)
[2017-08-04] MEDS: Furosemide IV* 10 MG/ML 10 ML VIAL (100 MG) IV SCH (08:24)
[2017-08-04 09:11] LABS: Hematocrit 26 % (35-47); Hemoglobin 8.4 g/dl (12.0-16.0); Mean Corpuscular HGB Conc 32 g/dl (31-36); Mean Corpuscular Hemoglobin 33 pg (27-31); Mean Corpuscular Volume 101 fL (80-97); Mean Platelet Volume 8 um3 (7.4-10.4); Red Blood Count 2.56 10^6/ul (4.0-5.4); Red Cell Distribution Width 16 % (10.5-15); White Blood Count 8.8 10^3/ul (3.5-10.8)
[2017-08-04] MEDS ORDERED: Furosemide IV* 10 MG/ML 2 ML VIAL (20 MG) IV ONE (17:00)
[2017-08-04] MEDS ORDERED: Furosemide IV* 10 MG/ML VIAL (40 MG) IV ONE (17:15)
[2017-08-04] MEDS: Latanoprost 0.005%* 2.5 ml BTL BOTH EYES SCH (17:43)
[2017-08-04] MEDS: Warfarin TAB(*) 6 MG PO SCH (17:43)
[2017-08-04] MEDS: Donepezil TAB* 5 MG PO SCH (17:43)
[2017-08-04] MEDS: QUEtiapine TAB* 25 MG PO SCH (20:28)
[2017-08-05 05:19] LABS: Hematocrit 27 % (35-47); Hemoglobin 8.7 g/dl (12.0-16.0); Mean Corpuscular HGB Conc 33 g/dl (31-36); Mean Corpuscular Hemoglobin 33 pg (27-31); Mean Corpuscular Volume 102 fL (80-97); Mean Platelet Volume 8 um3 (7.4-10.4); Red Blood Count 2.61 10^6/ul (4.0-5.4); Red Cell Distribution Width 16 % (10.5-15)
[2017-08-05 05:33] LABS: BUN/Creatinine Ratio 27.2 (8-20); Calcium 8.6 mg/dL (8.6-10.3); EGFR Non-African American 33.4 (>60); Potassium 3.7 mmol/L (3.5-5.0)
[2017-08-05] MEDS: Levothyroxine TAB* 125 MCG TAB PO SCH (05:54)
[2017-08-05] MEDS: Heparin VIAL(*) 5000 UNITS/ML VIAL (FIVE THOUSAND) SUBCUT SCH (05:55)
[2017-08-05] MEDS: Magnesium Oxide TAB* 400 MG PO SCH ×2 (08:12→21:20)
[2017-08-05] MEDS: Famotidine TAB* 20 MG PO SCH (08:12)
[2017-08-05] MEDS: Potassium Chlor TAB* 10 MEQ TAB.ER PO SCH ×2 (08:12→21:20)
[2017-08-05] MEDS: guaiFENesin ER TAB 600 MG PO SCH ×2 (08:12→21:18)
[2017-08-05] MEDS: Hydroxychloroquine TAB* 200 MG PO SCH (08:12)
[2017-08-05] MEDS: Ferrous Gluconate TAB* 324 MG TAB PO SCH ×2 (08:12→21:17)
[2017-08-05] MEDS: traMADol TAB* 50 MG PO SCH ×2 (08:12→21:20)
[2017-08-05] MEDS: Folic Acid TAB* 1 MG PO SCH (08:12)
[2017-08-05] MEDS ORDERED: Furosemide IV* 10 MG/ML 10 ML VIAL (100 MG) IV ONE (09:02)
--- NOTE | 2017-08-05 13:33 | PN ---
Subjective Date of Service: 08/05/17 Interval History: Pt had been more SOB today. not much of negative I/0's in the past 24H. Received 60 mg of IV Lasixin nAM, needed to be placed on 02 at 2L Objective Active Medications: Albuterol (Ventolin 2.5 Mg/3 Ml Neb.Rika*) 2.5 mg INH Q4H PRN PRN Reason: SOB/WHEEZING Last Admin: 08/05/17 09:03 Dose: 2.5 mg Donepezil HCl (Aricept Tab*) 10 mg PO QPM [facility] Last Admin: 08/04/17 17:43 Dose: 10 mg Famotidine (Pepcid Tab*) 20 mg PO DAILY [facility] Last Admin: 08/05/17 08:12 Dose: 20 mg Ferrous Gluconate (Fergon Tab*) 324 mg PO BID [facility] Last Admin: 08/05/17 08:12 Dose: 324 mg Folic Acid (Folvite Tab*) 1 mg PO DAILY [facility] Last Admin: 08/05/17 08:12 Dose: 1 mg Furosemide (Lasix Tab*) 60 mg PO TID [facility] Guaifenesin (Mucinex*) 1,200 mg PO BID [facility] Last Admin: 08/05/17 08:12 Dose: 1,200 mg Heparin Sodium (Porcine) (Heparin Vial(*)) 5,000 units SUBCUT Q8HR [facility] Last Admin: 08/05/17 05:55 Dose: 5,000 units Hydroxychloroquine Sulfate (Plaquenil Tab*) 200 mg PO DAILY [facility] Last Admin: 08/05/17 08:12 Dose: 200 mg Latanoprost (Xalatan 0.005%*) 1 drop BOTH EYES QPM [facility] Last Admin: 08/04/17 17:43 Dose: 1 drop Levothyroxine Sodium (Synthroid Tab*) 125 mcg PO 0600 [facility] Last Admin: 08/05/17 05:54 Dose: 125 mcg Magnesium Oxide (Magox 400 Tab*) 400 mg PO BID [facility] Last Admin: 08/05/17 08:12 Dose: 400 mg Pharmacy Profile Note (Coumadin Daily Reminder*) 0 note FOLLOW UP 1700 [facility] Last Admin: 08/04/17 17:45 Dose: 1 note Potassium Chloride (Klor Con Er Tab*) 10 meq PO BID [facility] Last Admin: 08/05/17 08:12 Dose: 10 meq Quetiapine Fumarate (Seroquel Tab*) 12.5 mg PO BEDTIME [facility] Last Admin: 08/04/17 20:28 Dose: 12.5 mg Tramadol HCl (Ultram*) 50 mg PO BID [facility] Last Admin: 08/05/17 08:12 Dose: 50 mg Warfarin Sodium (Coumadin Tab(*)) 6 mg PO DAILY@1700 [facility] PRN Reason: Protocol Last Admin: 08/04/17 17:43 Dose: 6 mg Vital Signs 08/04/17 08/04/17 08/04/17 15:46 19:32 20:00 Temperature 97.8 F 98.4 F Pulse Rate 71 71 Respiratory 20 24 20 Rate Blood Pressure 126/58 141/54 (mmHg) O2 Sat by Pulse 94 96 Oximetry 08/04/17 08/04/17 08/05/17 20:28 23:45 03:45 Temperature 98.4 F 98.2 F Pulse Rate 73 57 Respiratory 20 16 20 Rate Blood Pressure 110/55 119/57 (mmHg) O2 Sat by Pulse 99 93 Oximetry 08/05/17 08/05/17 08/05/17 07:34 08:00 08:12 Temperature 99.5 F Pulse Rate 65 Respiratory 20 24 24 Rate Blood Pressure 139/54 (mmHg) O2 Sat by Pulse 95 Oximetry 08/05/17 08/05/17 08/05/17 09:05 10:12 11:07 Temperature 97.7 F Pulse Rate 60 70 Respiratory 19 24 16 Rate Blood Pressure 122/59 (mmHg) O2 Sat by Pulse 95 95 Oximetry Oxygen Devices in Use Now: Nasal Cannula - at 2L Appearance: 76 yo F in nAD, aAOx3 Eyes: No Scleral Icterus, PERRLA Ears/Nose/Mouth/Throat: NL Teeth, Lips, Gums, Mucous Membranes Moist Neck: NL Appearance and Movements; NL JVP, Trachea Midline Respiratory: Symmetrical Chest Expansion and Respiratory Effort, - - rales b/l Cardiovascular: - - irregular Abdominal: NL Sounds; No Tenderness; No Distention, No Hepatosplenomegaly Lymphatic: No Cervical Adenopathy Extremities: No Clubbing, Cyanosis, - - no edema b/l Skin: No Rash or Ulcers, No Nodules or Sclerosis Neurological: Alert and Oriented x 3, NL Muscle Strength and Tone Result Diagrams: 08/05/17 04:52 08/05/17 04:52 Additional Lab and Data: Lab Results 08/01/17 08/01/17 08/01/17 Range/Units 17:13 17:13 17:13 WBC (3.5-10.8) 10^3/ul RBC (4.0-5.4) 10^6/ul Hgb (12.0-16.0) g/dl Hct (35-47) % MCV (80-97) fL MCH (27-31) pg MCHC (31-36) g/dl RDW (10.5-15) % Plt Count (150-450) 10^3/ul MPV (7.4-10.4) um3 Neut % (Auto) (38-83) % Lymph % (Auto) (25-47) % [place] % (Auto) (1-9) % Eos % (Auto) (0-6) % Baso % (Auto) (0-2) % Absolute Neuts (auto) (1.5-7.7) 10^3/ul Absolute Lymphs (auto) (1.0-4.8) 10^3/ul Absolute Monos (auto) (0-0.8) 10^3/ul Absolute Eos (auto) (0-0.6) 10^3/ul Absolute Basos (auto) (0-0.2) 10^3/ul Absolute Nucleated RBC 10^3/ul Nucleated RBC % INR (Anticoag Therapy) 1.56 H (0.89-1.11) APTT 31.4 (26.0-36.3) seconds Sodium 134 (133-145) mmol/L Potassium 4.4 (3.5-5.0) mmol/L Chloride 105 (101-111) mmol/L Carbon Dioxide 23 (22-32) mmol/L Anion Gap 6 (2-11) mmol/L BUN 29 H (6-24) mg/dL Creatinine 1.33 H (0.51-0.95) mg/dL Est GFR ( Amer) 49.8 (>60) Est GFR (Non-Af Amer) 38.7 (>60) BUN/Creatinine Ratio 21.8 H (8-20) Glucose 90 (70-100) mg/dL Lactic Acid (0.5-2.0) mmol/L Calcium 8.9 (8.6-10.3) mg/dL Magnesium 1.9 (1.9-2.7) mg/dL Total Bilirubin 0.40 (0.2-1.0) mg/dL AST 28 (13-39) U/L ALT 17 (7-52) U/L Alkaline Phosphatase 76 (34-104) U/L Total Creatine Kinase 42 (10-223) U/L CK-MB (CK-2) 4.2 (0.6-6.3) ng/mL Troponin I 0.13 H* (<0.04) ng/mL C-Reactive Protein 25.29 H (< 5.00) mg/L B-Natriuretic Peptide 1760 H ( - 100) pg/mL Total Protein 6.6 (6.4-8.9) g/dL Albumin 3.4 (3.2-5.2) g/dL Globulin 3.2 (2-4) g/dL Albumin/Globulin Ratio 1.1 (1-3) Lipase 105 H (11.0-82.0) U/L TSH 1.85 (0.34-5.60) mcIU/mL 08/01/17 08/01/17 Range/Units 17:13 17:13 WBC 10.1 (3.5-10.8) 10^3/ul RBC 2.65 L (4.0-5.4) 10^6/ul Hgb 8.6 L (12.0-16.0) g/dl Hct 27 L (35-47) % MCV 103 H (80-97) fL MCH 33 H (27-31) pg MCHC 32 (31-36) g/dl RDW 17 H (10.5-15) % Plt Count 342 (150-450) 10^3/ul MPV 7 L (7.4-10.4) um3 Neut % (Auto) 81.7 (38-83) % Lymph % (Auto) 6.3 L (25-47) % [place] % (Auto) 10.9 H (1-9) % Eos % (Auto) 0.2 (0-6) % Baso % (Auto) 0.9 (0-2) % Absolute Neuts (auto) 8.2 H (1.5-7.7) 10^3/ul Absolute Lymphs (auto) 0.6 L (1.0-4.8) 10^3/ul Absolute Monos (auto) 1.1 H (0-0.8) 10^3/ul Absolute Eos (auto) 0 (0-0.6) 10^3/ul Absolute Basos (auto) 0.1 (0-0.2) 10^3/ul Absolute Nucleated RBC 0.06 10^3/ul Nucleated RBC % 0.6 INR (Anticoag Therapy) (0.89-1.11) APTT (26.0-36.3) seconds Sodium (133-145) mmol/L Potassium (3.5-5.0) mmol/L Chloride (101-111) mmol/L Carbon Dioxide (22-32) mmol/L Anion Gap (2-11) mmol/L BUN (6-24) mg/dL Creatinine (0.51-0.95) mg/dL Est GFR ( Amer) (>60) Est GFR (Non-Af Amer) (>60) BUN/Creatinine Ratio (8-20) Glucose (70-100) mg/dL Lactic Acid 0.9 (0.5-2.0) mmol/L Calcium (8.6-10.3) mg/dL Magnesium (1.9-2.7) mg/dL Total Bilirubin (0.2-1.0) mg/dL AST (13-39) U/L ALT (7-52) U/L Alkaline Phosphatase (34-104) U/L Total Creatine Kinase (10-223) U/L CK-MB (CK-2) (0.6-6.3) ng/mL Troponin I (<0.04) ng/mL C-Reactive Protein (< 5.00) mg/L B-Natriuretic Peptide ( - 100) pg/mL Total Protein (6.4-8.9) g/dL Albumin (3.2-5.2) g/dL Globulin (2-4) g/dL Albumin/Globulin Ratio (1-3) Lipase (11.0-82.0) U/L TSH (0.34-5.60) mcIU/mL Microbiology and Other Data: Microbiology 08/01/17 19:10 Nasal Screen MRSA (PCR)(TONYA) - Final Nasal Mrsa Negative Assess/Plan/Problems-Billing Assessment: 76 yo female with PMHx significant for RA, aplastic anemia ( due to methotrexate), chronic diastolic HF, CKD, HTN, GERD, hypothyroidism, tricuspid valve repair, biprostetic mitral valve, renal artery stenosis (stent on L), aortic stenosis, pacer for 3 rd degree AV block, a. fib on coumadin who presented to the emergency room with complaints of SOB and PND. Was discharged from [facility] on 07/28/17. Pt cannot recall what dose of Lasix she was at home prior to her last hospital stay (from d/w son and review of med records- she was on Lasix 80 in AM and 60 QPM + Zaroxolyn 2x/week at home). As per review of medical records she was on cardiac diet at [place]. - Patient Problems (1) Acute on chronic diastolic (congestive) heart failure Comment: Today she is in pulm edema again. D/w Dr. Ferrera. It appears that pt develops flash pulm edema very easily and needs Lasix more frequently that BID. will trry to place her on PO Lasix 60 mg TID, she may require more IV if respiratory status doesn't improve. Repeat Echo showed moderate , well functioning mitral vave and severe TR. Strict I/O. Low sodium diet. (2) Anemia Comment: macrocytic. h/o aplastic anemia due to methotrexate that resolved in the past. now Hb at new baseline of 8. TIBC 371 (05/27/17), Fe 267 (05/27/17), retic count 7.7 (07/27/17) , B12 918 (07/27/17), folate>20(07/27/17), stool heme neg (07/28/17) consulted hematology , appreciate recommendations, haptoglobin higher than norm , no evidence of hemolysis (3) Elevated troponin Comment: Troponin 0.13-peaked Suspect demand ischemia (4) CKD (chronic kidney disease) Comment: Creatinine at beseline (5) Hypothyroidism Comment: Continue levothyroxine. (6) Rheumatoid arthritis Comment: Contiune home plaquenil (7) DVT prophylaxis Comment: increased coumadin from 5 to 6 mg daily on 08/02/17 check INR daily Status and Disposition: inpatient
[2017-08-05] MEDS: Furosemide TAB* 20 MG PO SCH ×2 (13:46→21:17)
[2017-08-05] MEDS: Donepezil TAB* 5 MG PO SCH (17:28)
[2017-08-05] MEDS: Warfarin TAB(*) 6 MG PO SCH (17:28)
[2017-08-05] MEDS: Latanoprost 0.005%* 2.5 ml BTL BOTH EYES SCH (17:28)
[2017-08-05] MEDS ORDERED: Furosemide TAB* 40 MG PO SCH (21:00)
[2017-08-05] MEDS: QUEtiapine TAB* 25 MG PO SCH (21:19)
[2017-08-06 05:27] LABS: Hematocrit 26 % (35-47); Hemoglobin 8.3 g/dl (12.0-16.0); Mean Corpuscular HGB Conc 32 g/dl (31-36); Mean Corpuscular Hemoglobin 33 pg (27-31); Mean Corpuscular Volume 102 fL (80-97); Mean Platelet Volume 8 um3 (7.4-10.4); Red Blood Count 2.53 10^6/ul (4.0-5.4); Red Cell Distribution Width 16 % (10.5-15); White Blood Count 9.1 10^3/ul (3.5-10.8)
[2017-08-06] MEDS: Levothyroxine TAB* 125 MCG TAB PO SCH (05:41)
[2017-08-06 05:47] LABS: BUN/Creatinine Ratio 27.9 (8-20); Calcium 8.5 mg/dL (8.6-10.3); EGFR African American 51.5 (>60); EGFR Non-African American 40.1 (>60); Potassium 3.3 mmol/L (3.5-5.0)
[2017-08-06] MEDS ORDERED: Metolazone TAB* 5 MG PO SCH (09:00)
[2017-08-06] MEDS ORDERED: Furosemide TAB* 40 MG PO SCH (09:00)
[2017-08-06] MEDS: Folic Acid TAB* 1 MG PO SCH (09:30)
[2017-08-06] MEDS: Potassium Chlor TAB* 10 MEQ TAB.ER PO SCH ×2 (09:30→20:21)
[2017-08-06] MEDS: Furosemide TAB* 20 MG PO SCH ×3 (09:30→21:13)
[2017-08-06] MEDS: traMADol TAB* 50 MG PO SCH ×2 (09:30→20:23)
[2017-08-06] MEDS: guaiFENesin ER TAB 600 MG PO SCH ×2 (09:30→20:20)
[2017-08-06] MEDS: Hydroxychloroquine TAB* 200 MG PO SCH (09:30)
[2017-08-06] MEDS: Magnesium Oxide TAB* 400 MG PO SCH ×2 (09:30→20:19)
[2017-08-06] MEDS: Famotidine TAB* 20 MG PO SCH (09:31)
[2017-08-06] MEDS: Ferrous Gluconate TAB* 324 MG TAB PO SCH ×2 (09:31→20:22)
[2017-08-06] MEDS ORDERED: Potassium Chlor TAB* 20 MEQ TAB.ER PO ONE (14:57)
--- NOTE | 2017-08-06 16:17 | PN ---
Subjective Date of Service: 08/06/17 Interval History: pt was seen twice today. In AM felt better than after lunch when she was still c /o SOB Objective Active Medications: Albuterol (Ventolin 2.5 Mg/3 Ml Neb.Rika*) 2.5 mg INH Q4H PRN PRN Reason: SOB/WHEEZING Last Admin: 08/05/17 09:03 Dose: 2.5 mg Donepezil HCl (Aricept Tab*) 10 mg PO QPM [facility] Last Admin: 08/05/17 17:28 Dose: 10 mg Famotidine (Pepcid Tab*) 20 mg PO DAILY [facility] Last Admin: 08/06/17 09:31 Dose: 20 mg Ferrous Gluconate (Fergon Tab*) 324 mg PO BID [facility] Last Admin: 08/06/17 09:31 Dose: 324 mg Folic Acid (Folvite Tab*) 1 mg PO DAILY [facility] Last Admin: 08/06/17 09:30 Dose: 1 mg Furosemide (Lasix Tab*) 60 mg PO TID [facility] Last Admin: 08/06/17 13:31 Dose: 60 mg Guaifenesin (Mucinex*) 1,200 mg PO BID [facility] Last Admin: 08/06/17 09:30 Dose: 1,200 mg Hydroxychloroquine Sulfate (Plaquenil Tab*) 200 mg PO DAILY [facility] Last Admin: 08/06/17 09:30 Dose: 200 mg Latanoprost (Xalatan 0.005%*) 1 drop BOTH EYES QPM [facility] Last Admin: 08/05/17 17:28 Dose: 1 drop Levothyroxine Sodium (Synthroid Tab*) 125 mcg PO 0600 [facility] Last Admin: 08/06/17 05:41 Dose: 125 mcg Magnesium Oxide (Magox 400 Tab*) 400 mg PO BID [facility] Last Admin: 08/06/17 09:30 Dose: 400 mg Metolazone (Zaroxolyn Tab*) 5 mg PO ONCE ONE Stop: 08/06/17 20:01 Pharmacy Profile Note (Coumadin Daily Reminder*) 0 note FOLLOW UP 1700 [facility] Last Admin: 08/05/17 17:28 Dose: 1 note Potassium Chloride (Klor Con Er Tab*) 10 meq PO BID [facility] Last Admin: 08/06/17 09:30 Dose: 10 meq Quetiapine Fumarate (Seroquel Tab*) 12.5 mg PO BEDTIME [facility] Last Admin: 08/05/17 21:19 Dose: 12.5 mg Tramadol HCl (Ultram*) 50 mg PO BID [facility] Last Admin: 08/06/17 09:30 Dose: 50 mg Warfarin Sodium (Coumadin Tab(*)) 4 mg PO DAILY@1700 [facility] PRN Reason: Protocol Vital Signs 08/05/17 08/05/17 08/05/17 19:43 20:00 21:20 Temperature 98.8 F Pulse Rate 54 Respiratory 16 22 22 Rate Blood Pressure 140/69 (mmHg) O2 Sat by Pulse 100 Oximetry 08/05/17 08/06/17 08/06/17 23:47 02:43 04:00 Temperature 98.8 F 98.1 F Pulse Rate 69 62 69 Respiratory 20 20 22 Rate Blood Pressure 107/56 113/54 (mmHg) O2 Sat by Pulse 98 98 99 Oximetry 08/06/17 08/06/17 08/06/17 07:26 08:00 09:30 Temperature 98.1 F Pulse Rate 70 Respiratory 16 22 22 Rate Blood Pressure 98/42 (mmHg) O2 Sat by Pulse 96 Oximetry Oxygen Devices in Use Now: Nasal Cannula - at 2L Appearance: 76 yo F in nAD, AAOx3 Eyes: No Scleral Icterus, PERRLA Ears/Nose/Mouth/Throat: NL Teeth, Lips, Gums, Mucous Membranes Moist Neck: NL Appearance and Movements; NL JVP, Trachea Midline Respiratory: Symmetrical Chest Expansion and Respiratory Effort, - - rales at b/ l bases Cardiovascular: - - irregular Abdominal: NL Sounds; No Tenderness; No Distention, No Hepatosplenomegaly Lymphatic: No Cervical Adenopathy Extremities: No Edema, No Clubbing, Cyanosis Skin: No Rash or Ulcers, No Nodules or Sclerosis Neurological: Alert and Oriented x 3, NL Muscle Strength and Tone Result Diagrams: 08/06/17 05:01 08/06/17 05:01 Additional Lab and Data: Lab Results 08/01/17 08/01/17 08/01/17 Range/Units 17:13 17:13 17:13 WBC (3.5-10.8) 10^3/ul RBC (4.0-5.4) 10^6/ul Hgb (12.0-16.0) g/dl Hct (35-47) % MCV (80-97) fL MCH (27-31) pg MCHC (31-36) g/dl RDW (10.5-15) % Plt Count (150-450) 10^3/ul MPV (7.4-10.4) um3 Neut % (Auto) (38-83) % Lymph % (Auto) (25-47) % [place] % (Auto) (1-9) % Eos % (Auto) (0-6) % Baso % (Auto) (0-2) % Absolute Neuts (auto) (1.5-7.7) 10^3/ul Absolute Lymphs (auto) (1.0-4.8) 10^3/ul Absolute Monos (auto) (0-0.8) 10^3/ul Absolute Eos (auto) (0-0.6) 10^3/ul Absolute Basos (auto) (0-0.2) 10^3/ul Absolute Nucleated RBC 10^3/ul Nucleated RBC % INR (Anticoag Therapy) 1.56 H (0.89-1.11) APTT 31.4 (26.0-36.3) seconds Sodium 134 (133-145) mmol/L Potassium 4.4 (3.5-5.0) mmol/L Chloride 105 (101-111) mmol/L Carbon Dioxide 23 (22-32) mmol/L Anion Gap 6 (2-11) mmol/L BUN 29 H (6-24) mg/dL Creatinine 1.33 H (0.51-0.95) mg/dL Est GFR ( Amer) 49.8 (>60) Est GFR (Non-Af Amer) 38.7 (>60) BUN/Creatinine Ratio 21.8 H (8-20) Glucose 90 (70-100) mg/dL Lactic Acid (0.5-2.0) mmol/L Calcium 8.9 (8.6-10.3) mg/dL Magnesium 1.9 (1.9-2.7) mg/dL Total Bilirubin 0.40 (0.2-1.0) mg/dL AST 28 (13-39) U/L ALT 17 (7-52) U/L Alkaline Phosphatase 76 (34-104) U/L Total Creatine Kinase 42 (10-223) U/L CK-MB (CK-2) 4.2 (0.6-6.3) ng/mL Troponin I 0.13 H* (<0.04) ng/mL C-Reactive Protein 25.29 H (< 5.00) mg/L B-Natriuretic Peptide 1760 H ( - 100) pg/mL Total Protein 6.6 (6.4-8.9) g/dL Albumin 3.4 (3.2-5.2) g/dL Globulin 3.2 (2-4) g/dL Albumin/Globulin Ratio 1.1 (1-3) Lipase 105 H (11.0-82.0) U/L TSH 1.85 (0.34-5.60) mcIU/mL 08/01/17 08/01/17 Range/Units 17:13 17:13 WBC 10.1 (3.5-10.8) 10^3/ul RBC 2.65 L (4.0-5.4) 10^6/ul Hgb 8.6 L (12.0-16.0) g/dl Hct 27 L (35-47) % MCV 103 H (80-97) fL MCH 33 H (27-31) pg MCHC 32 (31-36) g/dl RDW 17 H (10.5-15) % Plt Count 342 (150-450) 10^3/ul MPV 7 L (7.4-10.4) um3 Neut % (Auto) 81.7 (38-83) % Lymph % (Auto) 6.3 L (25-47) % [place] % (Auto) 10.9 H (1-9) % Eos % (Auto) 0.2 (0-6) % Baso % (Auto) 0.9 (0-2) % Absolute Neuts (auto) 8.2 H (1.5-7.7) 10^3/ul Absolute Lymphs (auto) 0.6 L (1.0-4.8) 10^3/ul Absolute Monos (auto) 1.1 H (0-0.8) 10^3/ul Absolute Eos (auto) 0 (0-0.6) 10^3/ul Absolute Basos (auto) 0.1 (0-0.2) 10^3/ul Absolute Nucleated RBC 0.06 10^3/ul Nucleated RBC % 0.6 INR (Anticoag Therapy) (0.89-1.11) APTT (26.0-36.3) seconds Sodium (133-145) mmol/L Potassium (3.5-5.0) mmol/L Chloride (101-111) mmol/L Carbon Dioxide (22-32) mmol/L Anion Gap (2-11) mmol/L BUN (6-24) mg/dL Creatinine (0.51-0.95) mg/dL Est GFR ( Amer) (>60) Est GFR (Non-Af Amer) (>60) BUN/Creatinine Ratio (8-20) Glucose (70-100) mg/dL Lactic Acid 0.9 (0.5-2.0) mmol/L Calcium (8.6-10.3) mg/dL Magnesium (1.9-2.7) mg/dL Total Bilirubin (0.2-1.0) mg/dL AST (13-39) U/L ALT (7-52) U/L Alkaline Phosphatase (34-104) U/L Total Creatine Kinase (10-223) U/L CK-MB (CK-2) (0.6-6.3) ng/mL Troponin I (<0.04) ng/mL C-Reactive Protein (< 5.00) mg/L B-Natriuretic Peptide ( - 100) pg/mL Total Protein (6.4-8.9) g/dL Albumin (3.2-5.2) g/dL Globulin (2-4) g/dL Albumin/Globulin Ratio (1-3) Lipase (11.0-82.0) U/L TSH (0.34-5.60) mcIU/mL Microbiology and Other Data: Microbiology 08/01/17 19:10 Nasal Screen MRSA (PCR)(TONYA) - Final Nasal Mrsa Negative Assess/Plan/Problems-Billing Assessment: 76 yo female with PMHx significant for RA, aplastic anemia ( due to methotrexate), chronic diastolic HF, CKD, HTN, GERD, hypothyroidism, tricuspid valve repair, biprostetic mitral valve, renal artery stenosis (stent on L), aortic stenosis, pacer for 3 rd degree AV block, a. fib on coumadin who presented to the emergency room with complaints of SOB and PND. Was discharged from [facility] on 07/28/17. Pt cannot recall what dose of Lasix she was at home prior to her last hospital stay (from d/w son and review of med records- she was on Lasix 80 in AM and 60 QPM + Zaroxolyn 2x/week at home). As per review of medical records she was on cardiac diet at [place]. - Patient Problems (1) Acute on chronic diastolic (congestive) heart failure Comment: Today she is slightly better than yesterday. D/w Dr. Ferrera on 08/05/17. It appears that pt develops flash pulm edema very easily and needs Lasix more frequently that BID. cont Lasix 60 mg TID for now and add daily Zaroxolyn beginning today. Repeat Echo showed moderate , well functioning mitral vave and severe TR. Strict I/O. Low sodium diet. (2) Anemia Comment: macrocytic. h/o aplastic anemia due to methotrexate that resolved in the past. now Hb at new baseline of 8. TIBC 371 (05/27/17), Fe 267 (05/27/17), retic count 7.7 (07/27/17) , B12 918 (07/27/17), folate>20(07/27/17), stool heme neg (07/28/17) consulted hematology , appreciate recommendations, haptoglobin higher than norm , no evidence of hemolysis (3) Elevated troponin Comment: Troponin 0.13-peaked Suspect demand ischemia (4) CKD (chronic kidney disease) Comment: Creatinine at beseline (5) Hypothyroidism Comment: Continue levothyroxine. (6) Rheumatoid arthritis Comment: Contiune home plaquenil (7) DVT prophylaxis Comment: decreased coumadin from 6 to 4 mg daily on 08/06/17 check INR daily Status and Disposition: inpatient
[2017-08-06] MEDS ORDERED: Warfarin TAB(*) 4 MG PO SCH (17:00)
[2017-08-06] MEDS: Latanoprost 0.005%* 2.5 ml BTL BOTH EYES SCH (17:27)
[2017-08-06] MEDS: Donepezil TAB* 5 MG PO SCH (17:27)
[2017-08-06] MEDS ORDERED: Metolazone TAB* 5 MG PO ONE (20:00)
[2017-08-06] MEDS: QUEtiapine TAB* 25 MG PO SCH (20:21)
[2017-08-07] MEDS: Levothyroxine TAB* 125 MCG TAB PO SCH (05:40)
[2017-08-07 06:17] LABS: BUN/Creatinine Ratio 29.5 (8-20); Calcium 8.9 mg/dL (8.6-10.3); EGFR African American 44.7 (>60); EGFR Non-African American 34.7 (>60); Magnesium 1.9 mg/dL (1.9-2.7); Potassium 3.4 mmol/L (3.5-5.0)
[2017-08-07] MEDS ORDERED: Potassium Chlor TAB* 20 MEQ TAB.ER PO ONE (07:44)
[2017-08-07] MEDS: traMADol TAB* 50 MG PO SCH ×2 (08:05→21:32)
[2017-08-07] MEDS: Magnesium Oxide TAB* 400 MG PO SCH ×2 (08:05→21:31)
[2017-08-07] MEDS: Folic Acid TAB* 1 MG PO SCH (08:05)
[2017-08-07] MEDS: Metolazone TAB* 5 MG PO SCH (08:05)
[2017-08-07] MEDS: Potassium Chlor TAB* 10 MEQ TAB.ER PO SCH ×2 (08:05→21:31)
[2017-08-07] MEDS: Hydroxychloroquine TAB* 200 MG PO SCH (08:06)
[2017-08-07] MEDS: Ferrous Gluconate TAB* 324 MG TAB PO SCH ×2 (08:06→21:32)
[2017-08-07] MEDS: Famotidine TAB* 20 MG PO SCH (08:06)
[2017-08-07] MEDS: guaiFENesin ER TAB 600 MG PO SCH ×2 (08:06→21:31)
[2017-08-07] MEDS: Furosemide TAB* 20 MG PO SCH ×3 (08:41→21:32)
--- NOTE | 2017-08-07 10:27 | PN ---
Subjective Date of Service: 08/07/17 Interval History: Pt feels well today, off 02. Pt sundowns in the evenings and gets disoriented Objective Active Medications: Albuterol (Ventolin 2.5 Mg/3 Ml Neb.Rika*) 2.5 mg INH Q4H PRN PRN Reason: SOB/WHEEZING Last Admin: 08/05/17 09:03 Dose: 2.5 mg Donepezil HCl (Aricept Tab*) 10 mg PO QPM [facility] Last Admin: 08/06/17 17:27 Dose: 10 mg Famotidine (Pepcid Tab*) 20 mg PO DAILY [facility] Last Admin: 08/07/17 08:06 Dose: 20 mg Ferrous Gluconate (Fergon Tab*) 324 mg PO BID [facility] Last Admin: 08/07/17 08:06 Dose: 324 mg Folic Acid (Folvite Tab*) 1 mg PO DAILY [facility] Last Admin: 08/07/17 08:05 Dose: 1 mg Furosemide (Lasix Tab*) 60 mg PO TID [facility] Last Admin: 08/07/17 08:41 Dose: 60 mg Guaifenesin (Mucinex*) 1,200 mg PO BID [facility] Last Admin: 08/07/17 08:06 Dose: 1,200 mg Hydroxychloroquine Sulfate (Plaquenil Tab*) 200 mg PO DAILY [facility] Last Admin: 08/07/17 08:06 Dose: 200 mg Latanoprost (Xalatan 0.005%*) 1 drop BOTH EYES QPM [facility] Last Admin: 08/06/17 17:27 Dose: 1 drop Levothyroxine Sodium (Synthroid Tab*) 125 mcg PO 0600 [facility] Last Admin: 08/07/17 05:40 Dose: 125 mcg Magnesium Oxide (Magox 400 Tab*) 400 mg PO BID [facility] Last Admin: 08/07/17 08:05 Dose: 400 mg Metolazone (Zaroxolyn Tab*) 5 mg PO DAILY@0830 [facility] Last Admin: 08/07/17 08:05 Dose: 5 mg Pharmacy Profile Note (Coumadin Daily Reminder*) 0 note FOLLOW UP 1700 [facility] Last Admin: 08/06/17 17:27 Dose: 1 note Potassium Chloride (Klor Con Er Tab*) 10 meq PO BID [facility] Last Admin: 08/07/17 08:05 Dose: 10 meq Quetiapine Fumarate (Seroquel Tab*) 12.5 mg PO BEDTIME [facility] Last Admin: 08/06/17 20:21 Dose: 12.5 mg Tramadol HCl (Ultram*) 50 mg PO BID [facility] Last Admin: 08/07/17 08:05 Dose: 50 mg Warfarin Sodium (Coumadin Tab(*)) 4 mg PO DAILY@1700 [facility] PRN Reason: Protocol Vital Signs 08/06/17 08/06/17 08/06/17 11:30 15:32 20:00 Temperature 97.9 F Pulse Rate 70 Respiratory 17 17 18 Rate Blood Pressure 105/58 (mmHg) O2 Sat by Pulse 98 Oximetry 08/06/17 08/06/17 08/06/17 20:23 22:23 22:55 Temperature 98.4 F Pulse Rate 70 Respiratory 18 18 20 Rate Blood Pressure 116/53 (mmHg) O2 Sat by Pulse 95 Oximetry 08/07/17 08/07/17 08/07/17 02:17 08:00 08:05 Temperature Pulse Rate 70 Respiratory 20 18 18 Rate Blood Pressure (mmHg) O2 Sat by Pulse 96 Oximetry 08/07/17 08/07/17 08:31 08:40 Temperature 97.5 F Pulse Rate 68 Respiratory 18 Rate Blood Pressure 131/63 (mmHg) O2 Sat by Pulse 100 Oximetry Oxygen Devices in Use Now: None Appearance: 76 yo f in nAD, aAOx3 Eyes: No Scleral Icterus, PERRLA Ears/Nose/Mouth/Throat: NL Teeth, Lips, Gums, Mucous Membranes Moist Neck: NL Appearance and Movements; NL JVP, No Thyroid Enlargement, Masses Respiratory: Symmetrical Chest Expansion and Respiratory Effort, - - crackles at bases Cardiovascular: RRR Abdominal: NL Sounds; No Tenderness; No Distention Lymphatic: No Cervical Adenopathy Extremities: No Edema, No Clubbing, Cyanosis, - - left hand amputated remotely Skin: No Nodules or Sclerosis Neurological: Alert and Oriented x 3, NL Muscle Strength and Tone Result Diagrams: 08/06/17 05:01 08/07/17 05:32 Additional Lab and Data: Lab Results 08/01/17 08/01/17 08/01/17 Range/Units 17:13 17:13 17:13 WBC (3.5-10.8) 10^3/ul RBC (4.0-5.4) 10^6/ul Hgb (12.0-16.0) g/dl Hct (35-47) % MCV (80-97) fL MCH (27-31) pg MCHC (31-36) g/dl RDW (10.5-15) % Plt Count (150-450) 10^3/ul MPV (7.4-10.4) um3 Neut % (Auto) (38-83) % Lymph % (Auto) (25-47) % White % (Auto) (1-9) % Eos % (Auto) (0-6) % Baso % (Auto) (0-2) % Absolute Neuts (auto) (1.5-7.7) 10^3/ul Absolute Lymphs (auto) (1.0-4.8) 10^3/ul Absolute Monos (auto) (0-0.8) 10^3/ul Absolute Eos (auto) (0-0.6) 10^3/ul Absolute Basos (auto) (0-0.2) 10^3/ul Absolute Nucleated RBC 10^3/ul Nucleated RBC % INR (Anticoag Therapy) 1.56 H (0.89-1.11) APTT 31.4 (26.0-36.3) seconds Sodium 134 (133-145) mmol/L Potassium 4.4 (3.5-5.0) mmol/L Chloride 105 (101-111) mmol/L Carbon Dioxide 23 (22-32) mmol/L Anion Gap 6 (2-11) mmol/L BUN 29 H (6-24) mg/dL Creatinine 1.33 H (0.51-0.95) mg/dL Est GFR ( Amer) 49.8 (>60) Est GFR (Non-Af Amer) 38.7 (>60) BUN/Creatinine Ratio 21.8 H (8-20) Glucose 90 (70-100) mg/dL Lactic Acid (0.5-2.0) mmol/L Calcium 8.9 (8.6-10.3) mg/dL Magnesium 1.9 (1.9-2.7) mg/dL Total Bilirubin 0.40 (0.2-1.0) mg/dL AST 28 (13-39) U/L ALT 17 (7-52) U/L Alkaline Phosphatase 76 (34-104) U/L Total Creatine Kinase 42 (10-223) U/L CK-MB (CK-2) 4.2 (0.6-6.3) ng/mL Troponin I 0.13 H* (<0.04) ng/mL C-Reactive Protein 25.29 H (< 5.00) mg/L B-Natriuretic Peptide 1760 H ( - 100) pg/mL Total Protein 6.6 (6.4-8.9) g/dL Albumin 3.4 (3.2-5.2) g/dL Globulin 3.2 (2-4) g/dL Albumin/Globulin Ratio 1.1 (1-3) Lipase 105 H (11.0-82.0) U/L TSH 1.85 (0.34-5.60) mcIU/mL 08/01/17 08/01/17 Range/Units 17:13 17:13 WBC 10.1 (3.5-10.8) 10^3/ul RBC 2.65 L (4.0-5.4) 10^6/ul Hgb 8.6 L (12.0-16.0) g/dl Hct 27 L (35-47) % MCV 103 H (80-97) fL MCH 33 H (27-31) pg MCHC 32 (31-36) g/dl RDW 17 H (10.5-15) % Plt Count 342 (150-450) 10^3/ul MPV 7 L (7.4-10.4) um3 Neut % (Auto) 81.7 (38-83) % Lymph % (Auto) 6.3 L (25-47) % White % (Auto) 10.9 H (1-9) % Eos % (Auto) 0.2 (0-6) % Baso % (Auto) 0.9 (0-2) % Absolute Neuts (auto) 8.2 H (1.5-7.7) 10^3/ul Absolute Lymphs (auto) 0.6 L (1.0-4.8) 10^3/ul Absolute Monos (auto) 1.1 H (0-0.8) 10^3/ul Absolute Eos (auto) 0 (0-0.6) 10^3/ul Absolute Basos (auto) 0.1 (0-0.2) 10^3/ul Absolute Nucleated RBC 0.06 10^3/ul Nucleated RBC % 0.6 INR (Anticoag Therapy) (0.89-1.11) APTT (26.0-36.3) seconds Sodium (133-145) mmol/L Potassium (3.5-5.0) mmol/L Chloride (101-111) mmol/L Carbon Dioxide (22-32) mmol/L Anion Gap (2-11) mmol/L BUN (6-24) mg/dL Creatinine (0.51-0.95) mg/dL Est GFR ( Amer) (>60) Est GFR (Non-Af Amer) (>60) BUN/Creatinine Ratio (8-20) Glucose (70-100) mg/dL Lactic Acid 0.9 (0.5-2.0) mmol/L Calcium (8.6-10.3) mg/dL Magnesium (1.9-2.7) mg/dL Total Bilirubin (0.2-1.0) mg/dL AST (13-39) U/L ALT (7-52) U/L Alkaline Phosphatase (34-104) U/L Total Creatine Kinase (10-223) U/L CK-MB (CK-2) (0.6-6.3) ng/mL Troponin I (<0.04) ng/mL C-Reactive Protein (< 5.00) mg/L B-Natriuretic Peptide ( - 100) pg/mL Total Protein (6.4-8.9) g/dL Albumin (3.2-5.2) g/dL Globulin (2-4) g/dL Albumin/Globulin Ratio (1-3) Lipase (11.0-82.0) U/L TSH (0.34-5.60) mcIU/mL Microbiology and Other Data: Microbiology 08/01/17 19:10 Nasal Screen MRSA (PCR)(TONYA) - Final Nasal Mrsa Negative Assess/Plan/Problems-Billing Assessment: 76 yo female with PMHx significant for RA, aplastic anemia ( due to methotrexate), chronic diastolic HF, CKD, HTN, GERD, hypothyroidism, tricuspid valve repair, biprostetic mitral valve, renal artery stenosis (stent on L), aortic stenosis, pacer for 3 rd degree AV block, a. fib on coumadin who presented to the emergency room with complaints of SOB and PND. Was discharged from [facility] [facility] to [facility] on 07/28/17. Pt cannot recall what dose of Lasix she was at home prior to her last hospital stay (from d/w son and review of med records- she was on Lasix 80 in AM and 60 QPM + Zaroxolyn 2x/week at home). As per review of medical records she was on cardiac diet at [place]. - Patient Problems (1) Acute on chronic diastolic (congestive) heart failure Comment: Off 02 today. Lungs on ascultation markedly improved. D/w Dr. Ferrera on 08/05/17. It appears that pt develops flash pulm edema very easily and needs Lasix more frequently that BID. cont Lasix 60 mg TID for now and added daily Zaroxolyn Repeat Echo showed moderate , well functioning mitral vave and severe TR. Strict I/O. Low sodium diet. Today almost euvolemic. Plan to cont current PO diuretics x 48 hrs to ensure stability prior to d/c (2) Anemia Comment: macrocytic. h/o aplastic anemia due to methotrexate that resolved in the past. now Hb at new baseline of 8. TIBC 371 (05/27/17), Fe 267 (05/27/17), retic count 7.7 (07/27/17) , B12 918 (07/27/17), folate>20(07/27/17), stool heme neg (07/28/17) consulted hematology , appreciate recommendations, haptoglobin higher than norm , no evidence of hemolysis, f/u as outpatient (3) Elevated troponin Comment: Troponin 0.13-peaked Suspect demand ischemia (4) CKD (chronic kidney disease) Comment: Creatinine at [place] (5) Hypothyroidism Comment: Continue levothyroxine. (6) Rheumatoid arthritis Comment: Contiune home plaquenil (7) DVT prophylaxis Comment: decreased coumadin from 6 to 4 mg daily on 08/06/17 holding it today for INR>3 and restarting at 4 mg on 08/08/17. Status and Disposition: inpatient, pt planned to d/c to [facility] on Thursday.
[2017-08-07] MEDS: Donepezil TAB* 5 MG PO SCH (17:10)
[2017-08-07] MEDS: Latanoprost 0.005%* 2.5 ml BTL BOTH EYES SCH (17:10)
[2017-08-07] MEDS: QUEtiapine TAB* 25 MG PO SCH (21:38)
[2017-08-08] MEDS: Levothyroxine TAB* 125 MCG TAB PO SCH (05:52)
[2017-08-08 06:03] LABS: BUN/Creatinine Ratio 29.2 (8-20); Calcium 9.7 mg/dL (8.6-10.3); EGFR African American 37.2 (>60); EGFR Non-African American 28.9 (>60); Potassium 3.3 mmol/L (3.5-5.0)
--- NOTE | 2017-08-08 08:37 | PN ---
Subjective Date of Service: 08/08/17 Interval History: Patient seen this morning. No complaints, feels breathing is improving. No pain. Says she has been urinating frequently. Family History: Unchanged from Admission Social History: Unchanged from Admission Past Medical History: Unchanged from Admission Objective Active Medications: Albuterol (Ventolin 2.5 Mg/3 Ml Neb.Rika*) 2.5 mg INH Q4H PRN Donepezil HCl (Aricept Tab*) 10 mg PO QPM [facility] Famotidine (Pepcid Tab*) 20 mg PO DAILY [facility] Ferrous Gluconate (Fergon Tab*) 324 mg PO BID [facility] Folic Acid (Folvite Tab*) 1 mg PO DAILY [facility] Furosemide (Lasix Tab*) 60 mg PO TID [facility] Guaifenesin (Mucinex*) 1,200 mg PO BID [facility] Hydroxychloroquine Sulfate (Plaquenil Tab*) 200 mg PO DAILY [facility] Latanoprost (Xalatan 0.005%*) 1 drop BOTH EYES QPM [facility] Levothyroxine Sodium (Synthroid Tab*) 125 mcg PO 0600 [facility] Magnesium Oxide (Magox 400 Tab*) 400 mg PO BID [facility] Metolazone (Zaroxolyn Tab*) 5 mg PO DAILY@0830 [facility] Pharmacy Profile Note (Coumadin Daily Reminder*) 0 note FOLLOW UP 1700 [facility] Potassium Chloride (Klor Con Er Tab*) 10 meq PO BID [facility] Quetiapine Fumarate (Seroquel Tab*) 12.5 mg PO BEDTIME [facility] Tramadol HCl (Ultram*) 50 mg PO BID [facility] Warfarin Sodium (Coumadin Tab(*)) 4 mg PO DAILY@1700 [facility] Vital Signs 08/07/17 08/07/17 08/07/17 08:40 10:42 11:06 Temperature 97.5 F Pulse Rate 68 70 Respiratory 18 20 16 Rate Blood Pressure 117/68 (mmHg) O2 Sat by Pulse 94 91 Oximetry 08/07/17 08/07/17 08/07/17 15:18 20:00 20:23 Temperature 98.0 F 98.3 F Pulse Rate 72 69 Respiratory 17 18 20 Rate Blood Pressure 134/64 134/49 (mmHg) O2 Sat by Pulse 96 100 Oximetry 08/07/17 08/07/17 08/08/17 21:32 23:32 00:01 Temperature 98.5 F Pulse Rate 70 Respiratory 18 18 16 Rate Blood Pressure 106/53 (mmHg) O2 Sat by Pulse 97 Oximetry 08/08/17 08/08/17 01:36 04:05 Temperature 98.6 F Pulse Rate 70 70 Respiratory 20 16 Rate Blood Pressure 118/66 (mmHg) O2 Sat by Pulse 97 91 Oximetry Oxygen Devices in Use Now: Nasal Cannula - at 2L Appearance: Elderly, F, laying in bed in NAD Eyes: No Scleral Icterus Ears/Nose/Mouth/Throat: Mucous Membranes Moist Neck: NL Appearance and Movements; NL JVP Respiratory: - - Some slight expiratory ronchi diffusely, no wheezing, no rales , good air movement Cardiovascular: - - IRIR, normal rate, JON Abdominal: NL Sounds; No Tenderness; No Distention Lymphatic: No Cervical Adenopathy Extremities: No Edema Skin: No Rash or Ulcers Neurological: - - Alert, oriented, no focal deficits Result Diagrams: 08/06/17 05:01 08/08/17 05:31 Assess/Plan/Problems-Billing Assessment: 76 yo female with PMHx significant for RA, aplastic anemia ( due to methotrexate), chronic diastolic HF, CKD, HTN, GERD, hypothyroidism, tricuspid valve repair, biprostetic mitral valve, renal artery stenosis (stent on L), aortic stenosis, pacer for 3 rd degree AV block, a. fib on coumadin who presented to the emergency room with complaints of SOB and PND. Was discharged from [facility] to [facility] on 07/28/17. Pt cannot recall what dose of Lasix she was at home prior to her last hospital stay (from d/w son and review of med records- she was on Lasix 80 in AM and 60 QPM + Zaroxolyn 2x/week at home). As per review of medical records she was on cardiac diet at [place]. - Patient Problems (1) Acute on chronic diastolic (congestive) heart failure Current Visit: No Comment: Lung exam stable. D/w Dr. Ferrera on 08/05/17. It appears that pt develops flash pulm edema very easily and needs Lasix more frequently that BID. Cont Lasix 60 mg TID for now, received Metolazone as well this morning, will hold for tomorrow. Repeat Echo showed moderate , well functioning mitral vave and severe TR. Strict I/O. Low sodium diet. Seems euvolemic. Plan to cont current PO diuretics x 48 more hrs to ensure stability prior to d/c (2) Anemia Current Visit: No Comment: macrocytic. h/o aplastic anemia due to methotrexate that resolved in the past. now Hb at new baseline of 8. TIBC 371 (05/27/17), Fe 267 (05/27/17), retic count 7.7 (07/27/17) , B12 918 (07/27/17), folate>20(07/27/17), stool heme neg (07/28/17) consulted hematology , appreciate recommendations, haptoglobin higher than norm , no evidence of hemolysis, f/u as outpatient (3) Elevated troponin Current Visit: No Comment: Troponin 0.13-peaked Suspect demand ischemia (4) CKD (chronic kidney disease) Current Visit: No Status: Chronic Code(s): N18.9 - CHRONIC KIDNEY DISEASE, UNSPECIFIED SNOMED Code(s): 208316932 Comment: Creatinine trending up, may need to live with higher creatinine to keep fluid off, continue to monitor (5) Hypothyroidism Current Visit: No Comment: Continue levothyroxine. (6) Rheumatoid arthritis Current Visit: No Comment: Contiune home plaquenil (7) Atrial fibrillation Current Visit: No Comment: Rate controlled off any meds. INR therapeutic. Coumadin dosed daily. (8) DVT prophylaxis Current Visit: No Comment: Coumadin Status and Disposition: inpatient
[2017-08-08] MEDS: Furosemide TAB* 20 MG PO SCH ×3 (10:13→20:20)
[2017-08-08] MEDS: guaiFENesin ER TAB 600 MG PO SCH ×2 (10:13→20:22)
[2017-08-08] MEDS: traMADol TAB* 50 MG PO SCH ×2 (10:13→20:20)
[2017-08-08] MEDS: Potassium Chlor TAB* 10 MEQ TAB.ER PO SCH ×2 (10:13→20:22)
[2017-08-08] MEDS: Famotidine TAB* 20 MG PO SCH (10:13)
[2017-08-08] MEDS: Hydroxychloroquine TAB* 200 MG PO SCH (10:14)
[2017-08-08] MEDS: Ferrous Gluconate TAB* 324 MG TAB PO SCH ×2 (10:15→20:17)
[2017-08-08] MEDS: Folic Acid TAB* 1 MG PO SCH (10:15)
[2017-08-08] MEDS: Magnesium Oxide TAB* 400 MG PO SCH ×2 (10:16→20:23)
[2017-08-08] MEDS ORDERED: Metolazone TAB* 5 MG PO ONE (10:37)
[2017-08-08] MEDS: Metolazone TAB* 5 MG PO SCH (10:59)
[2017-08-08] MEDS: Warfarin TAB(*) 4 MG PO SCH (17:06)
[2017-08-08] MEDS: Latanoprost 0.005%* 2.5 ml BTL BOTH EYES SCH (17:06)
[2017-08-08] MEDS: Donepezil TAB* 5 MG PO SCH (17:06)
[2017-08-08] MEDS: QUEtiapine TAB* 25 MG PO SCH (20:18)
[2017-08-09] MEDS: Levothyroxine TAB* 125 MCG TAB PO SCH (06:38)
--- NOTE | 2017-08-09 07:21 | PN ---
Subjective Date of Service: 08/09/17 Interval History: Patient seen this morning. Reports good night last night, denies SOB. Has been urinating well. Pleased she may be discharged tomorrow. Family History: Unchanged from Admission Social History: Unchanged from Admission Past Medical History: Unchanged from Admission Objective Active Medications: Albuterol (Ventolin 2.5 Mg/3 Ml Neb.Rika*) 2.5 mg INH Q4H PRN Donepezil HCl (Aricept Tab*) 10 mg PO QPM [facility] Famotidine (Pepcid Tab*) 20 mg PO DAILY [facility] Ferrous Gluconate (Fergon Tab*) 324 mg PO BID [facility] Folic Acid (Folvite Tab*) 1 mg PO DAILY [facility] Furosemide (Lasix Tab*) 60 mg PO TID [facility] Guaifenesin (Mucinex*) 1,200 mg PO BID [facility] Hydroxychloroquine Sulfate (Plaquenil Tab*) 200 mg PO DAILY [facility] Latanoprost (Xalatan 0.005%*) 1 drop BOTH EYES QPM [facility] Levothyroxine Sodium (Synthroid Tab*) 125 mcg PO 0600 [facility] Magnesium Oxide (Magox 400 Tab*) 400 mg PO BID [facility] Pharmacy Profile Note (Coumadin Daily Reminder*) 0 note FOLLOW UP 1700 [facility] Potassium Chloride (Klor Con Er Tab*) 10 meq PO BID [facility] Quetiapine Fumarate (Seroquel Tab*) 12.5 mg PO BEDTIME [facility] Tramadol HCl (Ultram*) 50 mg PO BID [facility] Warfarin Sodium (Coumadin Tab(*)) 4 mg PO DAILY@1700 [facility] Vital Signs 08/08/17 08/08/17 08/08/17 07:36 08:00 10:13 Temperature 97.8 F Pulse Rate 41 Respiratory 16 18 22 Rate Blood Pressure 99/54 (mmHg) O2 Sat by Pulse 98 Oximetry 08/08/17 08/08/17 08/08/17 17:00 20:20 20:25 Temperature 98.2 F Pulse Rate 70 Respiratory 16 20 20 Rate Blood Pressure 119/45 (mmHg) O2 Sat by Pulse 96 Oximetry 08/08/17 08/08/17 08/09/17 22:20 23:46 03:25 Temperature 98.7 F 98.2 F Pulse Rate 70 70 Respiratory 18 18 16 Rate Blood Pressure 115/97 120/55 (mmHg) O2 Sat by Pulse 99 95 Oximetry Oxygen Devices in Use Now: None Appearance: Elderly, F, laying in bed in NAD Eyes: No Scleral Icterus Ears/Nose/Mouth/Throat: - - Dry MM Neck: NL Appearance and Movements; NL JVP Respiratory: Symmetrical Chest Expansion and Respiratory Effort, - - Some scattered, mild, inspiratory/expiratory ronchi, no wheezing, no rales, good air movement Cardiovascular: NL Sounds; No Murmurs; No JVD, RRR Abdominal: NL Sounds; No Tenderness; No Distention Lymphatic: No Cervical Adenopathy Extremities: No Edema Skin: No Rash or Ulcers Neurological: - - Alert, oriented, no focal deficits Result Diagrams: 08/06/17 05:01 08/08/17 05:31 Assess/Plan/Problems-Billing Assessment: 76 yo female with PMHx significant for RA, aplastic anemia ( due to methotrexate), chronic diastolic HF, CKD, HTN, GERD, hypothyroidism, tricuspid valve repair, biprostetic mitral valve, renal artery stenosis (stent on L), aortic stenosis, pacer for 3 rd degree AV block, a. fib on coumadin who presented to the emergency room with complaints of SOB and PND. Was discharged from [facility] [place] [place] to [facility] on 07/28/17. Pt cannot recall what dose of Lasix she was at home prior to her last hospital stay (from d/w son and review of med records- she was on Lasix 80 in AM and 60 QPM + Zaroxolyn 2x/week at home). As per review of medical records she [facility]. - Patient Problems (1) Acute on chronic diastolic (congestive) heart failure Current Visit: No Comment: Lung exam stable. D/w Dr. Ferrera on 08/05/17. It appears that pt develops flash pulm edema very easily and needs Lasix more frequently that BID. Cont Lasix 60 mg TID for now, holding Metolazone for now, awaiting BMP Repeat Echo showed moderate , well functioning mitral vave and severe TR. Strict I/O. Low sodium diet. Seems euvolemic. Plan to cont current PO diuretics x 24 more hrs to ensure stability prior to d/c (2) Anemia Current Visit: No Comment: macrocytic. h/o aplastic anemia due to methotrexate that resolved in the past. now Hb at new baseline of 8. TIBC 371 (05/27/17), Fe 267 (05/27/17), retic count 7.7 (07/27/17) , B12 918 (07/27/17), folate>20(07/27/17), stool heme neg (07/28/17) consulted hematology , appreciate recommendations, haptoglobin higher than norm , no evidence of hemolysis, f/u as outpatient (3) Elevated troponin Current Visit: No Comment: Troponin 0.13-peaked Suspect demand ischemia (4) CKD (chronic kidney disease) Current Visit: No Status: Chronic Code(s): N18.9 - CHRONIC KIDNEY DISEASE, UNSPECIFIED SNOMED Code(s): 425092416 Comment: Creatinine has been trending up, may need to live with higher creatinine to keep fluid off, continue to monitor. Today's BMP pending. (5) Hypothyroidism Current Visit: No Comment: Continue levothyroxine. (6) Rheumatoid arthritis Current Visit: No Comment: Contiune home plaquenil (7) Atrial fibrillation Current Visit: No Comment: Rate controlled off any meds. INR pending. Coumadin dosed daily. (8) DVT prophylaxis Current Visit: No Comment: Coumadin Status and Disposition: inpatient. Plan for discharge to [facility] tomorrow
[2017-08-09 07:26] LABS: BUN/Creatinine Ratio 27.1 (8-20); Calcium 9.9 mg/dL (8.6-10.3); EGFR African American 27.7 (>60); EGFR Non-African American 21.5 (>60); Potassium 2.8 mmol/L (3.5-5.0)
[2017-08-09] MEDS: Furosemide TAB* 20 MG PO SCH ×3 (07:45→20:09)
[2017-08-09] MEDS: Hydroxychloroquine TAB* 200 MG PO SCH (08:41)
[2017-08-09] MEDS: Folic Acid TAB* 1 MG PO SCH (08:41)
[2017-08-09] MEDS: Magnesium Oxide TAB* 400 MG PO SCH ×2 (08:42→20:09)
[2017-08-09] MEDS: Potassium Chlor TAB* 10 MEQ TAB.ER PO SCH ×2 (08:42→20:12)
[2017-08-09] MEDS: traMADol TAB* 50 MG PO SCH ×2 (08:42→20:11)
[2017-08-09] MEDS: guaiFENesin ER TAB 600 MG PO SCH ×2 (08:42→20:12)
[2017-08-09] MEDS: Ferrous Gluconate TAB* 324 MG TAB PO SCH ×2 (08:43→20:11)
[2017-08-09] MEDS: Famotidine TAB* 20 MG PO SCH (08:43)
[2017-08-09] MEDS: Potassium Chlor TAB* 20 MEQ TAB.ER PO SCH ×2 (08:44→13:02)
[2017-08-09] MEDS: Donepezil TAB* 5 MG PO SCH (17:08)
[2017-08-09] MEDS: Warfarin TAB(*) 4 MG PO SCH (17:08)
[2017-08-09] MEDS: Latanoprost 0.005%* 2.5 ml BTL BOTH EYES SCH (17:09)
[2017-08-09] MEDS: QUEtiapine TAB* 25 MG PO SCH (20:11)
[2017-08-10] MEDS: Levothyroxine TAB* 125 MCG TAB PO SCH (05:41)
[2017-08-10 06:15] LABS: BUN/Creatinine Ratio 27.5 (8-20); Calcium 9.8 mg/dL (8.6-10.3); EGFR African American 22.5 (>60); EGFR Non-African American 17.5 (>60); Potassium 3.5 mmol/L (3.5-5.0)
--- NOTE | 2017-08-10 09:28 | PN ---
Subjective Date of Service: 08/10/17 Interval History: Patient seen this morning. Reports feeling well, denies SOB, no pain. Says she has been urinating more overnight. Family History: Unchanged from Admission Social History: Unchanged from Admission Past Medical History: Unchanged from Admission Objective Active Medications: Albuterol (Ventolin 2.5 Mg/3 Ml Neb.Rika*) 2.5 mg INH Q4H PRN Donepezil HCl (Aricept Tab*) 10 mg PO QPM [facility] Famotidine (Pepcid Tab*) 20 mg PO DAILY [facility] Ferrous Gluconate (Fergon Tab*) 324 mg PO BID [facility] Folic Acid (Folvite Tab*) 1 mg PO DAILY [facility] Guaifenesin (Mucinex*) 1,200 mg PO BID [facility] Hydroxychloroquine Sulfate (Plaquenil Tab*) 200 mg PO DAILY [facility] Latanoprost (Xalatan 0.005%*) 1 drop BOTH EYES QPM [facility] Levothyroxine Sodium (Synthroid Tab*) 125 mcg PO 0600 [facility] Magnesium Oxide (Magox 400 Tab*) 400 mg PO BID [facility] Pharmacy Profile Note (Coumadin Daily Reminder*) 0 note FOLLOW UP 1700 [facility] Potassium Chloride (Klor Con Er Tab*) 10 meq PO BID [facility] Quetiapine Fumarate (Seroquel Tab*) 12.5 mg PO BEDTIME [facility] Tramadol HCl (Ultram*) 50 mg PO BID [facility] Warfarin Sodium (Coumadin Tab(*)) 4 mg PO DAILY@1700 [facility] Vital Signs 08/09/17 08/09/17 08/09/17 09:41 09:47 10:16 Temperature Pulse Rate 55 Respiratory 16 Rate Blood Pressure 86/38 105/45 (mmHg) O2 Sat by Pulse 100 Oximetry 08/09/17 08/09/17 08/09/17 12:00 15:23 19:27 Temperature 98.1 F 97.9 F 98.0 F Pulse Rate 51 70 71 Respiratory 16 20 20 Rate Blood Pressure 116/63 106/56 117/57 (mmHg) O2 Sat by Pulse 97 98 98 Oximetry 08/09/17 08/09/17 08/09/17 19:29 20:11 22:11 Temperature Pulse Rate Respiratory 20 20 18 Rate Blood Pressure (mmHg) O2 Sat by Pulse Oximetry 08/09/17 08/10/17 08/10/17 23:23 03:22 07:38 Temperature 98.2 F 98.2 F 98.0 F Pulse Rate 70 70 70 Respiratory 16 16 18 Rate Blood Pressure 133/57 117/60 114/58 (mmHg) O2 Sat by Pulse 98 98 98 Oximetry 08/10/17 09:14 Temperature Pulse Rate Respiratory Rate Blood Pressure (mmHg) O2 Sat by Pulse 97 Oximetry Oxygen Devices in Use Now: None Appearance: Elderly, F, sitting in chair in NAD Eyes: No Scleral Icterus Ears/Nose/Mouth/Throat: Mucous Membranes Moist Neck: NL Appearance and Movements; NL JVP Respiratory: Symmetrical Chest Expansion and Respiratory Effort, - - Some mild diffuse end-expiratory wheezing, no rales Cardiovascular: NL Sounds; No Murmurs; No JVD, RRR Abdominal: NL Sounds; No Tenderness; No Distention Lymphatic: No Cervical Adenopathy Extremities: No Edema Skin: No Rash or Ulcers Neurological: Alert and Oriented x 3 Result Diagrams: 08/06/17 05:01 08/10/17 05:33 Assess/Plan/Problems-Billing Assessment: 76 yo female with PMHx significant for RA, aplastic anemia ( due to methotrexate), chronic diastolic HF, CKD, HTN, GERD, hypothyroidism, tricuspid valve repair, biprostetic mitral valve, renal artery stenosis (stent on L), aortic stenosis, pacer for 3 rd degree AV block, a. fib on coumadin who presented to the emergency room with complaints of SOB and PND. Was discharged from [facility] to [facility] on 07/28/17. Pt cannot recall what dose of Lasix she was at home prior to her last hospital stay (from d/w son and review of med records- she was on Lasix 80 in AM and 60 QPM + Zaroxolyn 2x/week at home). As per review of medical records she was on cardiac diet at [place]. - Patient Problems (1) Acute on chronic diastolic (congestive) heart failure Current Visit: No Comment: Lung exam stable. D/w Dr. Ferrera on 08/05/17. It appears that pt develops flash pulm edema very easily and needs Lasix more frequently that BID. MAREK worsening this morning, likely from overdiuresis, will hold diuretics today. Repeat Echo showed moderate , well functioning mitral vave and severe TR. Strict I/O. Low sodium diet. (2) Anemia Current Visit: No Comment: macrocytic. h/o aplastic anemia due to methotrexate that resolved in the past. now Hb at new baseline of 8. TIBC 371 (05/27/17), Fe 267 (05/27/17), retic count 7.7 (07/27/17) , B12 918 (07/27/17), folate>20(07/27/17), stool heme neg (07/28/17) consulted hematology , appreciate recommendations, haptoglobin higher than norm , no evidence of hemolysis, f/u as outpatient (3) Elevated troponin Current Visit: No Comment: Troponin 0.13-peaked Suspect demand ischemia (4) CKD (chronic kidney disease) Current Visit: No Status: Chronic Code(s): N18.9 - CHRONIC KIDNEY DISEASE, UNSPECIFIED SNOMED Code(s): 612551524 Comment: Creatinine continues to trend up, seems like we have over-diuresed. Holding Lasix and Metolazone today. Recheck BMP in AM (5) Hypothyroidism Current Visit: No Comment: Continue levothyroxine. (6) Rheumatoid arthritis Current Visit: No Comment: Contiune home plaquenil (7) Atrial fibrillation Current Visit: No Comment: Rate controlled off any meds. INR therapeutic. Coumadin dosed daily. (8) DVT prophylaxis Current Visit: No Comment: Coumadin Status and Disposition: inpatient. Plan for discharge to [facility] once renal function stable
[2017-08-10] MEDS: Famotidine TAB* 20 MG PO SCH (09:52)
[2017-08-10] MEDS: guaiFENesin ER TAB 600 MG PO SCH ×2 (09:53→21:48)
[2017-08-10] MEDS: Folic Acid TAB* 1 MG PO SCH (09:53)
[2017-08-10] MEDS: Hydroxychloroquine TAB* 200 MG PO SCH (09:53)
[2017-08-10] MEDS: Magnesium Oxide TAB* 400 MG PO SCH ×2 (09:54→21:48)
[2017-08-10] MEDS: Ferrous Gluconate TAB* 324 MG TAB PO SCH ×2 (09:54→21:47)
[2017-08-10] MEDS: Potassium Chlor TAB* 10 MEQ TAB.ER PO SCH ×2 (09:54→21:48)
[2017-08-10] MEDS: traMADol TAB* 50 MG PO SCH ×2 (09:55→21:47)
[2017-08-10] MEDS: Latanoprost 0.005%* 2.5 ml BTL BOTH EYES SCH (17:21)
[2017-08-10] MEDS: Donepezil TAB* 5 MG PO SCH (17:21)
[2017-08-10] MEDS: Warfarin TAB(*) 4 MG PO SCH (17:21)
[2017-08-10] MEDS: QUEtiapine TAB* 25 MG PO SCH (21:48)
[2017-08-11] MEDS: Levothyroxine TAB* 125 MCG TAB PO SCH (05:51)
[2017-08-11 07:13] LABS: BUN/Creatinine Ratio 36.1 (8-20); Calcium 9.7 mg/dL (8.6-10.3); EGFR African American 29.7 (>60); EGFR Non-African American 23.1 (>60); Potassium 3.2 mmol/L (3.5-5.0)
[2017-08-11] MEDS ORDERED: Furosemide TAB* 20 MG PO SCH (09:00)
--- NOTE | 2017-08-11 09:44 | RAD ---
INDICATION: Cough and rhonchi. COMPARISON: Most recent comparison chest x-ray is dated October 01, 2017 TECHNIQUE: Single AP portable view of the chest was obtained. FINDINGS: Image quality is compromised due to the relative inferiority of a portable chest x-ray. Stable postsurgical changes include a right upper chest cardiac pacemaker with 2 leads overlying the heart, sternotomy wires and additional surgical material overlying the heart. The heart and mediastinum exhibit normal size and contour. Again seen is coarse atherosclerotic calcification overlying the arch of the aorta. There is density obscuring the left hemidiaphragm and causing a small degree of left costophrenic angle blunting. The visualized right lung and superior left lung are otherwise adequately aerated. Visualized bones are normal for the patient's age. IMPRESSION: Density obscuring the left lung base could be consolidation, atelectasis or pleural effusion.
[2017-08-11] MEDS: Folic Acid TAB* 1 MG PO SCH (09:48)
[2017-08-11] MEDS: Magnesium Oxide TAB* 400 MG PO SCH (09:48)
[2017-08-11] MEDS: Famotidine TAB* 20 MG PO SCH (09:48)
[2017-08-11] MEDS: Potassium Chlor TAB* 10 MEQ TAB.ER PO SCH (09:48)
[2017-08-11] MEDS: guaiFENesin ER TAB 600 MG PO SCH (09:48)
[2017-08-11] MEDS: Hydroxychloroquine TAB* 200 MG PO SCH (09:48)
[2017-08-11] MEDS: traMADol TAB* 50 MG PO SCH (09:49)
[2017-08-11] MEDS: Ferrous Gluconate TAB* 324 MG TAB PO SCH (09:49)
[2017-08-11 10:02] VITALS: BP 155/68
--- NOTE | 2017-08-11 10:48 | DS ---
CC: Dr. Matty Gutierrez * DISCHARGE SUMMARY: DATE OF ADMISSION: 08/01/17 DATE OF DISCHARGE: 08/11/17 PRIMARY CARE PHYSICIAN: Matty Gutierrez MD PRINCIPAL DISCHARGE DIAGNOSES: 1. Acute hypoxic respiratory failure secondary to acute on chronic diastolic congestive heart failure exacerbation. 2. Moderate aortic stenosis. 3. Severe tricuspid regurgitation. 4. Macrocytic anemia. SECONDARY DIAGNOSES: 1. Atrial fibrillation, on Coumadin. 2. Chronic kidney disease. 3. Hypertension. 4. Hypothyroidism. 5. Rheumatoid arthritis. 6. Dementia. 7. Chronic obstructive pulmonary disease. 8. Third-degree heart block, status post pacemaker. STUDIES DONE DURING HOSPITALIZATION: 1. Chest x-ray, impression: No active cardiopulmonary disease. 2. Chest x-ray, impression: Density obscuring the left lung base could be consolidation, atelectasis or pleural effusion. 3. Transthoracic echocardiogram, conclusions: Left ventricular chamber size is normal; mild concentric LVH is observed; estimated ejection fraction is 55% to 60%. Ventricular septal wall motion has a postoperative appearance. There is abnormal ventricular septal wall motion consistent with right ventricular pacemaker. Assessment of diastolic function is nondiagnostic. The left atrium is moderately dilated. Pacemaker wire is visualized in the right ventricle. Pacemaker wire is visualized in the right atrium. There is mild to moderate aortic regurgitation. Moderate aortic stenosis. A bioprosthetic mitral valve is present. The bioprosthetic mitral valve appears to be functioning normally. There is severe tricuspid regurgitation, severe pulmonary hypertension, mild pulmonic regurgitation. CONSULTANTS DURING HOSPITALIZATION: Dr. Norberto Miranda, Hematology/Oncology. HISTORY OF PRESENT ILLNESS AND HOSPITAL SUMMARY: Please see the full history and physical by Dr. Pratibha Coates for full details. Briefly, Ms. Mike is a 76- year-old female with a past medical history as above who presented to the hospital with progressive shortness of breath after a recent hospitalization. It seems that there was a miscommunication regarding the patient's Lasix discharge dose and she was discharged from the hospital on a much smaller dose than she should have been. She had previously been taking 80 mg in the morning and 60 mg in the evening, but was only discharged on 20 mg. Here in the hospital, the patient was diuresed with IV Lasix. She initially required ICU placement, was eventually transitioned to the floor as her oxygen was weaned down and off. She received metolazone and had excellent diuresis. She subsequently developed some MAREK, which began to improve on day of discharge after holding her diuretics for a day. The patient will be discharged on Lasix 60 mg three times daily. Then will also be given a prescription for p.r.n. metolazone, if she has weight gain of at least 3 pounds over 3 to 5 days. The patient was found to be anemic during this hospitalization. Hematology was consulted. The patient had a history of aplastic anemia. Dr. Miranda evaluated the patient, suspected possible immune- mediated hemolytic anemia, and recommended cold agglutinins which were sent and are pending at this time. He states that if those were negative, could consider a trial of prednisone 1 mg/kg. The patient's anemia remained stable during the hospitalization. She did not require transfusion. She should follow up with Hematology/Oncology as an outpatient. The patient's breathing symptoms improved and on the day of discharge she had some coarse breath sounds on the left. A chest x-ray was checked and did not show any clear signs of infection, likely atelectasis vs small effusion. This was likely due to her holding her diuretics, which often results in some wheezing and coarse breath sounds. These will be restarted. The patient will be discharged to [facility] for continued rehab and was ordered for a basic metabolic panel and INR to be done on 08/13/17. TESTING TO FOLLOWUP: 1. Scheduled basic metabolic panel and INR on 08/13/17. 2. Cold agglutinins were drawn during the hospitalization and are pending at this time. 3. We need to keep a close eye on the patient's weight to determine if she needs additional metolazone, which is currently ordered p.r.n. TIME SPENT: Total time spent on this discharge 45 minutes. This is a summary of hospitalization; please see the full medical record for further details. [id number]/CPS #: [id number] MTDD
== END 2017-08-11 12:05 | DRG 291 ==
LOC: ED 16:45 → ICU 18:35 → MEDTELE 08-04 11:00 → MED 08-08 16:58
PROVIDERS: ADMIT Internal Medicine; ATTEND Hospitalist
PROC: 5A09457 Assistance with Respiratory Ventilation, 24-96 Consecutive Hours, Continuous Positive Airway Pressure (ICD-10-PCS; principal; 2017-08-01)
DX: I13.0 Hypertensive heart and chronic kidney disease with heart failure and stage 1 through stage 4 chronic kidney disease, or unspecified chronic kidney disease (principal); I50.31 Acute diastolic (congestive) heart failure; J96.01 Acute respiratory failure with hypoxia; I44.2 Atrioventricular block, complete; N17.9 Acute kidney failure, unspecified; F03.90 Unspecified dementia, unspecified severity, without behavioral disturbance, psychotic disturbance, mood disturbance, and anxiety; I48.91 Unspecified atrial fibrillation; I27.20 Pulmonary hypertension, unspecified; I24.8 Other forms of acute ischemic heart disease; I08.2 Rheumatic disorders of both aortic and tricuspid valves; G31.84 Mild cognitive impairment of uncertain or unknown etiology; J98.11 Atelectasis; J44.9 Chronic obstructive pulmonary disease, unspecified; D53.9 Nutritional anemia, unspecified; N18.9 Chronic kidney disease, unspecified; E03.9 Hypothyroidism, unspecified; M06.9 Rheumatoid arthritis, unspecified; R74.8 Abnormal levels of other serum enzymes; I70.1 Atherosclerosis of renal artery; Z66 Do not resuscitate; Z79.01 Long term (current) use of anticoagulants; Z95.0 Presence of cardiac pacemaker; Z95.2 Presence of prosthetic heart valve; Z79.899 Other long term (current) drug therapy; Z88.6 Allergy status to analgesic agent; Z88.5 Allergy status to narcotic agent; Z88.0 Allergy status to penicillin; Z88.2 Allergy status to sulfonamides; Z88.8 Allergy status to other drugs, medicaments and biological substances
CPT/HCPCS: 36415; 71010; 80048; 80053; 81003; 81015; 82550; 82553; 82728; 82746; 83010; 83605; 83615; 83690; 83735; 83880; 84443; 84484; 85025; 85045; 85060; 85610; 85730; 86140; 86157; 86880; 87040; 87086; 87641; 93005; 93306; 94640; 94760; 99233; A9270-GY; J1644; J1940; J2185

== ENCOUNTER 2018-07-07 14:27 | Inpatient (IN) | payer MEDICARE, MEDICAID ==
[2018-07-07 16:59] LABS: ABS Basophils 0.3 10^3/ul (0-0.2); ABS Eosinophils 0 10^3/ul (0-0.6); ABS Lymphocytes 0.4 10^3/ul (1.0-4.8); ABS Monocytes 0.6 10^3/ul (0-0.8); ABS Neutrophils 11.3 10^3/ul (1.5-7.7); ABS Nucleated RBC 0.2 10^3/ul; Eosinophil % 0.1 % (0-6); Hematocrit 34 % (35-47); Lymphocyte % 3.3 % (25-47); Mean Corpuscular HGB Conc 32 g/dl (31-36); Mean Corpuscular Hemoglobin 33 pg (27-31); Mean Corpuscular Volume 103 fL (80-97); Mean Platelet Volume 8.5 um3 (7.4-10.4); Nucleated Red Blood Cells % 1.6; Platelet Count 246 10^3/ul (150-450); Red Blood Count 3.35 10^6/ul (4.00-5.40); Red Cell Distribution Width 19 % (10.5-15); White Blood Count 12.6 10^3/ul (3.5-10.8)
--- NOTE | 2018-07-07 17:27 | ED ---
Abdominal Pain/Female - HPI Summary HPI Summary: Pt is a 77 year old female presenting to the ED with a chief complaint of abdominal pain. The HPI and PE is limited due to the patients dementia and contradicting answers to physical exam questions. Per son, the pt is not very mobile, is mostly in a wheelchair, and had a fall 2 weeks ago. She has been at [facility] since February, where she has gained weight. The son also tells us she has a hx of aplastic anemia. Per her nursing notes from [facility], the pt is a DNR, and has a hx of HTN and chronic kidney disease, however the progress notes stop on 07/06. - History of Current Complaint Chief Complaint: EDGeneral Stated Complaint: AMS Time Seen by Provider: 07/07/18 16:31 Hx Obtained From: Family/Manager Of Patient Hx From Patient Unobtainable Due To: Dementia Onset/Duration: Gradual Onset, Lasting Days, Still Present Timing: Constant Severity Initially: Mild Severity Currently: None Pain Intensity: 0 Pain Scale Used: 0-10 Numeric Location: Diffuse Allergies/Adverse Reactions: Allergies Allergy/AdvReac Type Severity Reaction Status Date / Time Beta-Blockers Allergy Unknown Verified 07/07/18 15:26 (Beta-Adrenergic Bloc Reaction Details Cephalosporins Allergy Unknown Verified 07/07/18 15:26 Reaction Details codeine Allergy Unknown Verified 07/07/18 15:26 Reaction Details Macrolide Antibiotics Allergy Unknown Verified 07/07/18 15:26 Reaction Details NSAIDS (Non-Steroidal Allergy Unknown Verified 07/07/18 15:26 Anti-Inflamma Reaction Details Penicillins Allergy Unknown Verified 07/07/18 15:26 Reaction Details sodium lauryl sulfate Allergy Unknown Verified 07/07/18 15:26 Reaction Details Sulfa (Sulfonamide Allergy Unknown Verified 07/07/18 15:26 Antibiotics) Reaction Details quinalones Allergy Severe possible Uncoded 10/31/15 23:21 QT prolongation /torasades ANTITUSSIVES Allergy Unknown Uncoded 10/31/15 23:21 Reaction Details OPIATE AGONISTS Allergy Unknown Uncoded 10/31/15 23:21 Reaction Details Home Medications: Home Medications Allopurinol TAB* [Zyloprim 300 MG TAB*] 300 mg PO DAILY 07/07/18 [History Confirmed 07/07/18] Ascorbic Acid TAB* [Vitamin C TAB*] 500 mg PO DAILY 07/07/18 [History Confirmed 07/07/18] Cholecalciferol (Vitamin D3) [Vitamin D3] 1,000 unit PO DAILY 07/07/18 [History Confirmed 07/07/18] Cyclosporine 0.05% OPHTH (NF) [Restasis 0.05% OPHTH] 1 drop BOTH EYES BID [History Confirmed 07/07/18] Docusate CAP* [Colace Cap*] 100 mg PO 0900,2100 07/07/18 [History Confirmed 10/12] Furosemide TAB* [Lasix TAB*] 80 mg PO Q12HR 07/07/18 [History Confirmed 07/07/18 ] Latanoprost 0.005%* [Xalatan 0.005%*] 1 drop BOTH EYES BEDTIME 07/07/18 [ History Confirmed 07/07/18] Metolazone TAB* [Zaroxolyn TAB*] 2.5 mg PO WEEKLY 07/07/18 [History Confirmed ] Multivitamins/Minerals TAB* [Theragran/minerals TAB*] 1 tab PO DAILY 07/07/18 [ History Confirmed 07/07/18] Potassium Chlor TAB* [Klor Con ER TAB*] 30 meq PO BID 07/07/18 [History Confirmed 07/07/18] Spironolactone TAB* [Aldactone TAB*] 25 mg PO Q12HR 07/07/18 [History Confirmed 07/07/18] Timolol 0.5% OPTH.EDD* [Timoptic 0.5% Opth*] 1 drop OPHTHALMIC DAILY 07/07/18 [ History Confirmed 07/07/18] Warfarin TAB(*) [Coumadin TAB(*)] 2 mg PO 1700 07/07/18 [History Confirmed 07/07] predniSONE TAB* [Deltasone TAB*] 5 mg PO DAILY 07/07/18 [History Confirmed 07/07] traMADol TAB* [Ultram*] 50 mg PO BEDTIME 07/07/18 [History Confirmed 07/07/18] traMADol TAB* [Ultram*] 50 mg PO DAILY PRN 07/07/18 [History Confirmed 07/07/18] PMH/Surg Hx/FS Hx/Imm Hx Previously Healthy: No Endocrine/Hematology History: Reports: Hx Anticoagulant Therapy - takes coumadin , Hx Thyroid Disease, Hx Anemia - aplastic anemia 2013 Denies: Hx Diabetes Cardiovascular History: Reports: Hx Congestive Heart Failure, Hx Coronary Artery Disease, Hx Hypertension, Hx Pacemaker/ICD, Hx Syncope, Hx Valvular Heart Disease - mitral valve repair, Other Cardiovascular Problems/Disorders - Coumadin, CAD Respiratory History: Reports: Hx Asthma, Hx Chronic Obstructive Pulmonary Disease (COPD), Hx Pneumonia GI History: Reports: Hx Gastroesophageal Reflux Disease, Hx Ulcer - gastric in the History: Reports: Hx Acute Renal Failure Musculoskeletal History: Reports: Hx Arthritis, Hx Back Problems, Hx Gout, Other Musculoskeletal History - RA Denies: Hx Osteoporosis Sensory History: Reports: Hx Cataracts, Hx Contacts or Glasses, Hx Glaucoma Denies: Hx Hearing Aid Opthamlomology History: Reports: Hx Cataracts, Hx Contacts or Glasses, Hx Glaucoma Neurological History: Reports: Hx Dementia Denies: Hx Developmental Delay, Hx Headaches, Hx Migraine, Hx Nerve Disease, Hx Seizures, Hx Spinal Cord Injury, Hx Transient Ischemic Attacks (TIA), Other Neuro Impairments/Disorders - Cancer History Cancer Type, Location and Year: pt seen by oncology for aplastic anemia, resolved per pt Hx Chemotherapy: No Hx Radiation Therapy: No Hx Palliative Cancer Treatment: No - Surgical History Surgery Procedure, Year, and Place: Bilat knee replacements at [facility] ? [id number]. Right wrist pinning at [facility] ?1997. Back surgery at [facility] ?2000. Pacemaker placed at [facility] 1994. Thyroid surgery at [facility] 1996. . x3. Cataract surgery. Appendectomy 1959 Hx Anesthesia Reactions: No Infectious Disease History: No Infectious Disease History: Reports: Hx Hepatitis Denies: Hx of Known/Suspected MRSA, History Other Infectious Disease, Traveled Outside the [place] in Last 30 Days - Family History Known Family History: Positive: Cardiac Disease, Hypertension, Diabetes - Social History Alcohol Use: None Hx Substance Use: No Substance Use Type: Reports: None Hx Tobacco Use: Yes Smoking Status (MU): Former Smoker Review of Systems Negative: Fever, Chills Negative: Erythema Negative: Sore Throat Negative: Chest Pain Negative: Shortness Of Breath, Cough Negative: Abdominal Pain, Vomiting, Nausea Negative: dysuria, hematuria Negative: Myalgia, Edema Negative: Rash Neurological: Negative - dizziness All Other Systems Reviewed And Are Negative: Yes Physical Exam - Summary Physical Exam Summary: Constitutional: Well-developed, Well-nourished, Alert. (-) Distressed Skin: Warm, Dry HENT: Normocephalic; Atraumatic Eyes: Conjunctiva normal Neck: Musculoskeletal ROM normal neck. (-) JVD, (-) Stridor, (-) Tracheal deviation Cardio: Rhythm regular, rate normal, Heart sounds normal; Intact distal pulses; The pedal pulses are 2+ and symmetric. Radial pulses are 2+ and symmetric. (-) Murmur Pulmonary/Chest wall: Effort normal. (-) Respiratory distress, (-) Wheezes, (-) Rales Abd: Soft, (-) epigastric tenderness, (-) Distension, (-) Guarding, (-) Rebound , (+) suprapubic tenderness. Musculoskeletal: (-) Edema Lymph: (-) Cervical adenopathy Neuro: Alert, Oriented x3 Psych: Mood and affect Normal Triage Information Reviewed: Yes Vital Signs On Initial Exam: Initial Vitals Temp Pulse Resp BP Pulse Ox 97.8 F 72 12 141/62 100 07/07/18 14:42 07/07/18 14:42 07/07/18 14:42 07/07/18 14:42 07/07/18 14:42 Vital Signs Reviewed: Yes Diagnostics - Vital Signs Vital Signs Temp Pulse Resp BP Pulse Ox 07/07/18 15:52 70 18 140/68 100 07/07/18 15:22 70 17 139/59 100 07/07/18 15:21 69 19 100 07/07/18 14:42 97.8 F 72 12 141/62 100 - Laboratory Lab Results: Lab Results 07/07/18 Range/Units 16:50 WBC 12.6 H (3.5-10.8) 10^3/ul RBC 3.35 L (4.00-5.40) 10^6/ul Hgb 11.0 L (12.0-16.0) g/dl Hct 34 L (35-47) % MCV 103 H (80-97) fL MCH 33 H (27-31) pg MCHC 32 (31-36) g/dl RDW 19 H (10.5-15) % Plt Count 246 (150-450) 10^3/ul MPV 8.5 (7.4-10.4) um3 Neut % (Auto) 90.0 H (38-83) % Lymph % (Auto) 3.3 L (25-47) % [place] % (Auto) 4.5 (0-7) % Eos % (Auto) 0.1 (0-6) % Baso % (Auto) 2.1 H (0-2) % Absolute Neuts (auto) 11.3 H (1.5-7.7) 10^3/ul Absolute Lymphs (auto) 0.4 L (1.0-4.8) 10^3/ul Absolute Monos (auto) 0.6 (0-0.8) 10^3/ul Absolute Eos (auto) 0 (0-0.6) 10^3/ul Absolute Basos (auto) 0.3 H (0-0.2) 10^3/ul Absolute Nucleated RBC 0.2 10^3/ul Nucleated RBC % 1.6 Result Diagrams: 07/07/18 16:50 07/07/18 16:50 Lab Statement: Any lab studies that have been ordered have been reviewed, and results considered in the medical decision making process. - EKG 1 Cardiac Rate: NL - 70bpm EKG Rhythm: Sinus Rhythm ST Segment: Normal Ectopy: None EKG Interpretation: No STEMI, Paced. Abdominal Pain Fem Course/Dx - Course Course Of Treatment: Pt is a 77 year old F presenting with some abdominal pain. She has dementia so a true HPI and PE is limited. She is a resident of [facility] , where she has gained weight and has limited mobility. Per her nursing notes, she is a DNR, and has a hx of HTN and chronic kidney disease, however she has not had a new progress note since 07/06. The pt will be admitted to [facility] per Dr. Ernandez. - Diagnoses Provider Diagnoses: Acute renal failure, Lower abdominal pain, Suspected UTI Discharge - Sign-Out/Discharge Documenting (check all that apply): Patient Departure - admit - Discharge Plan Condition: Stable Disposition: ADMITTED TO [facility] - Attestation Statements Document Initiated by Scribe: Yes Documenting Scribe: Yamileth Renteria Provider For Whom Scribe is Documenting (Include Credential): Doug Roblero MD. Scribe Attestation: Yamileth Singletary, scribed for Doug Roblero MD. on 07/07/18 at 1916.
[2018-07-07 17:32] LABS: EGFR Non-African American 13.8 (>60)
[2018-07-07] MEDS ORDERED: NS 0.9% 1000 ML* 1,000 ML IV ONE (17:43)
[2018-07-07] MEDS ORDERED: traMADol TAB* 50 MG PO PRN (18:36)
[2018-07-07 19:00] LABS: Urine Appearance Clear; Urine Blood Negative (Negative); Urine Color Yellow; Urine Ketones Negative (Negative); Urine Protein Negative (Negative); Urine Specific Gravity 1.008 (1.010-1.030); Urine Urobilinogen Negative (Negative)
[2018-07-07] MEDS: Clindamycin 300 MG IVPREMIX(* 300 MG/50 ML SDV IV SCH (21:39)
[2018-07-07] MEDS: traMADol TAB* 50 MG PO SCH (21:39)
[2018-07-07] MEDS: QUEtiapine TAB* 25 MG PO SCH (21:40)
[2018-07-07 22:08] LABS: INR 2.83 (0.77-1.02)
--- NOTE | 2018-07-07 23:09 | HP ---
HISTORY AND PHYSICAL: DATE OF ADMISSION: 07/07/18 PROVIDER: Kenisha Abarca NP ATTENDING PHYSICIAN: Dr. Ernandez * (report dictated by Kenisha Abarca NP). PRIMARY CARE PROVIDER: [facility]. INDUSTRIAL CHEMICALS SUPERVISOR: Dr. Santillan. CHIEF COMPLAINT: Sent from skilled nursing for hyponatremia. HISTORY OF PRESENT ILLNESS: Ms. Mike is a 77-year-old female with a past medical history of atrial fibrillation, on Coumadin; severe pulmonary hypertension; moderate aortic stenosis; CHF with preserved ejection fraction; chronic kidney disease stage 4; hypertension; hypothyroidism; rheumatoid arthritis; dementia; third-degree heart block, status post pacemaker; aplastic anemia, who presents to the emergency department today from [facility] after she had labs and was found to have a sodium of 121. Per the report from emergency department, there was a complaint of abdominal pain, however on exam the patient denies abdominal pain and has no findings of abdominal pain. She has advanced dementia and is a very poor historian. Her son is at the bedside, who reports that this is her baseline. There is no notes from the skilled nursing today. Today, in the emergency department, she was found to be alert and awake , in no acute distress. She was slightly anxious. The patient's sodium this morning at 6:30 at the skilled nursing was 121 and on evaluation in the emergency department, it had come up to 125. As well, she presents with a potassium of 5.4, a creatinine above her baseline of 3.25, it appears her baseline is around 2.5 and a mild leukocytosis. It appears the patient has been over diuresed as she is on Lasix 80 mg p.o. b.i.d., Zaroxolyn, and Aldactone due to her CHF and severe pulmonary hypertension. Per the patient's son, this has happened to her multiple times where she gets over-diuresed, when her diuretics are held she goes into severe congestive heart failure. Today, on exam, she is noted to have a vital signs that are stable. No signs of sepsis. Still awaiting a urinalysis. [facility] is doing daily wound care on a right lower extremity superficial wound that does not appear to be infected as well as 2 left toes that do appear to have generalized erythema and possible there is a cellulitis. Per the son, he has not seen the toes in quite some time, but states that these are fairly new wounds and the toes appear to be mildly swollen. On exam, the patient is a poor historian. She does currently deny any complaints other than being in the emergency department. PAST MEDICAL HISTORY: 1. Atrial fibrillation, on Coumadin. 2. CHF with a preserved EF. 3. Chronic kidney disease. The baseline appears to be around 2. 4. Hypertension. 5. Hypothyroidism. 6. Rheumatoid arthritis, on prednisone and Plaquenil, follows with Dr. Crews. 7. Vascular dementia. 8. COPD. 9. History of third-degree heart block, status post pacemaker. 10. Severe pulmonary hypertension. 11. Aplastic anemia, follows with Dr. Solorzano. 12. GERD. PAST SURGICAL HISTORY: 1. Status post knee surgery. 2. Pacemaker placement. 3. Valve repair at [place]. 4. 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 MEDICATIONS: Home medications: 1. Pepcid 40 mg p.o. q.a.m. 2. Plaquenil 200 mg p.o. q.a.m. 3. Folic acid 1 mg p.o. q.a.m. 4. Ferrous gluconate 324 mg p.o. b.i.d. 5. Potassium chloride 30 mEq p.o. b.i.d. 6. Latanoprost 0.005% one drop both eyes at bedtime. 7. Colace 100 mg p.o. b.i.d. 8. Prednisone 5 mg p.o. daily. 9. Allopurinol 300 mg p.o. daily. 10. Restasis 0.05% one drop both eyes b.i.d. 11. Timolol 0.5% one drop ophthalmic daily. 12. Vitamin C 500 mg p.o. daily. 13. Multivitamin with mineral 1 tab p.o. daily. 14. Vitamin D3 of 1000 units p.o. daily. 15. Zaroxolyn 2.5 mg p.o. weekly. 16. Seroquel 12.5 mg p.o. b.i.d. 17. Synthroid 125 mcg p.o. daily. 18. Lasix 80 mg p.o. b.i.d. 19. Spironolactone 25 mg p.o. b.i.d. 20. Coumadin 2 mg p.o. daily. 21. Tramadol 50 mg p.o. daily p.r.n. 22. Tramadol 50 mg p.o. at bedtime. ALLERGIES: BETA-BLOCKERS, CEPHALOSPORINS, CODEINE, MACROLIDE ANTIBIOTICS, NSAIDS, PENICILLIN, SODIUM LAURYL SULFATE, SULFA, QUINOLONES, ANTITUSSIVES, OPIATES, AGONISTS. FAMILY HISTORY: The patient's mother had a history of dementia and her father had a history of aneurysm. SOCIAL HISTORY: Nonsmoker. Does not drink alcohol. She currently resides at [facility] since February 2018. Surrogate decision maker is her son, Mao. REVIEW OF SYSTEMS: A 14-point review of systems was performed. All the pertinent positives and negatives are mentioned in the history of present illness. Please note that the patient is a poor historian with advanced dementia. She is able to answer some questions. The son is at the bedside and appears to be a good historian, but is unclear of the details surrounding today. PHYSICAL EXAMINATION GENERAL APPEARANCE: Elderly, chronically ill-appearing female, alert to self, slightly anxious. Stable. VITAL SIGNS: Temperature 96.9, heart rate 68, respirations 18, pulse oximetry 100% on 2 L nasal cannula, blood pressure 126/77. HEENT: Head is normocephalic, atraumatic. Pupils are equal and reactive to light. Oropharynx is clear. Moist mucous membranes. NECK: Supple. LUNGS: Clear to auscultation bilaterally. Good aeration throughout. CARDIAC: S1, S2. Regular rate and rhythm. ABDOMEN: Obese, soft, nontender, nondistended. Normal bowel sounds throughout. EXTREMITIES: No clubbing, cyanosis, or edema. NEUROLOGICAL: Alert. No focal deficits noted. Unable to participate with neuro exam due to her dementia. SKIN: The patient's left pinky and third toe have noted erythema with anterior 1 cm wound, which appears to be healing. No drainage noted. Warm to touch. Left medial anterior lower extremity has an open area that appears to be superficial. No drainage or erythema. Possible skin tear?. Her arms bilaterally have multiple areas of ecchymoses, different stages of healing. DIAGNOSTIC STUDIES/LAB DATA: WBC is 12.6, RBC 3.35, HGB 11.0, HCT 34, MCV 103 , MCH 33, MCHC 32, RDW 19, platelet count 246. Sodium 125, potassium 5.4, chloride 91, carbon dioxide 21, anion gap 12, BUN 111, creatinine 3.25, glucose 112, lactic acid 0.7, calcium 9.8. Total bilirubin 0.50, AST 31, ALT 21, alkaline phosphatase 21. C-reactive protein 46.29. Total protein 6.5, albumin 3.3. Lipase 33. INR 2.72. EKG is showing a ventricularly paced rhythm with a rate of 70. ASSESSMENT AND PLAN: Ms. Mike is a 77-year-old female that resides at [facility] as a resident who has a past medical history of vascular dementia; atrial fibrillation, on Coumadin; congestive heart failure with a preserved EF; severe pulmonary hypertension; moderate aortic stenosis; rheumatoid arthritis; hypertension; hypothyroidism; third-degree heart block, status post pacemaker; and history of aplastic anemia, who presents to the emergency department today for concern of hyponatremia with a sodium of 121. 1. Hyponatremia. In the emergency department, her sodium had increased to 125 on initial exam. I suspect this is secondary to her being over-diuresed with her high dose diuretics. These will be held at this time. As she was given 1 L of normal saline in the emergency department, we will repeat her sodium this evening. She is asymptomatic to this, although she has advanced dementia and is difficult to assess, her son states that she is at her baseline. The son warned to be careful holding her diuretics as she quickly becomes fluid overloaded with congestive heart failure in the past. 2. Mild leukocytosis. She is noted to be on prednisone. I am still awaiting urinalysis and a chest x-ray. She does not have signs of sepsis. It is possible that her left toes have a mild cellulitis and it appears that [facility] has been doing wound care daily on her left toes and her right lower extremity wound. It is possible she could have some chronic osteo and this will need to be decided and further investigated. For now, I will start the patient on clindamycin for her toes. Please note she has multiple antibiotic allergies. Per the son and medical records, it appears that she has tolerated this before in the past. 3. Congestive heart failure with a preserved EF, also history of severe pulmonary hypertension, moderate aortic stenosis. Per the son, she very quickly becomes fluid overloaded off her medications. I did discuss with the son, it will depend on her labs tomorrow about restarting her diuretics, which will most likely need to be reduced doses. He understands that this may be difficult and that she is more end-stage. He states he is not quite ready for hospice at this time and wants to see how she does throughout the hospitalization. 4. Acute on chronic kidney failure. Baseline creatinine appears to be around 2 and she presents with a creatinine of 3.5. I suspect this is secondary to being over-diuresed. Again, still awaiting the urinalysis. If this appears abnormal, recommendation to obtain a renal ultrasound. 5. Rheumatoid arthritis. I will continue Plaquenil and prednisone. It appears she has chronically elevated CRP. 6. Hypothyroidism. It appears this morning in the skilled nursing, she had a TSH checked, which is noted to be 16.31. The last TSH prior to that was in July 2017. We will increase the patient's home dose Synthroid from 125 to 150 mcg p.o. daily. This should be rechecked in 6 to 8 weeks. 7. Anemia. Per son, she has a history of aplastic anemia. She appears to have around baseline labs. Continue iron supplementation. 8. Vascular dementia. Supportive treatment, continue Seroquel b.i.d. 9. Atrial fibrillation, on Coumadin. Her INR is therapeutic. Continue 2 mg of Coumadin daily. Recheck INR daily. The patient is not on any rate controlling meds since she has a pacemaker, which is ventricularly paced. 10. History of hypertension. She is not currently on any antihypertensive medications, but is on diuretics. Currently, her blood pressure is stable. We will continue to monitor. 11. Chronic obstructive pulmonary disease. She does not appear to be in exacerbation. 12. DVT prophylaxis: INR is therapeutic on Coumadin. 13. Nutrition: Per son, she eats a heart-healthy diet with regular consistency. 14. Code status: DNR/DNI, limited medical interventions. No feeding tube. Trial of IV fluids. Use antibiotics. Send to hospital based on [facility] orders. TIME SPENT: Approximately 75 minutes was spent on this admission. This case was discussed with the attending physician, Dr. Ernandez, who agrees with the plan of care. KENISHA ABARCA, FORMULATOR COMPOUNDER [id number]/[facility] #: [id number] JEANETH
[2018-07-08] MEDS: Docusate CAP* 100 MG PO SCH ×3 (00:20→21:19)
[2018-07-08] MEDS: Latanoprost 0.005%* 2.5 ml BTL BOTH EYES SCH ×2 (00:20→21:18)
[2018-07-08] MEDS: Cyclosporine 0.05% OPHTH (NF) 0.4 ML VIAL BOTH EYES SCH ×2 (00:21→08:58)
[2018-07-08] MEDS: Clindamycin 300 MG IVPREMIX(* 300 MG/50 ML SDV IV SCH ×4 (01:49→21:17)
[2018-07-08] MEDS: Levothyroxine TAB* 150 MCG TAB PO SCH (06:07)
[2018-07-08 07:17] LABS: ABS Basophils 0.1 10^3/ul (0-0.2); ABS Eosinophils 0 10^3/ul (0-0.6); ABS Lymphocytes 0.5 10^3/ul (1.0-4.8); ABS Monocytes 0.7 10^3/ul (0-0.8); ABS Nucleated RBC 0.2 10^3/ul; Eosinophil % 0 % (0-6); Hematocrit 33 % (35-47); Hemoglobin 10.5 g/dl (12.0-16.0); Lymphocyte % 4.7 % (25-47); Mean Corpuscular HGB Conc 32 g/dl (31-36); Mean Corpuscular Hemoglobin 33 pg (27-31); Mean Corpuscular Volume 102 fL (80-97); Mean Platelet Volume 8.9 um3 (7.4-10.4); Nucleated Red Blood Cells % 1.3; Platelet Count 228 10^3/ul (150-450); Red Cell Distribution Width 19 % (10.5-15); White Blood Count 11.5 10^3/ul (3.5-10.8)
[2018-07-08 07:37] LABS: EGFR Non-African American 15.6 (>60)
--- NOTE | 2018-07-08 07:42 | RAD ---
HISTORY: leukocytosis COMPARISONS: August 24, 2017 VIEWS: 1: frontal portable view of the chest at 6:55 PM FINDINGS: LINES AND TUBES: There is a right-sided pacemaker. CARDIOMEDIASTINAL SILHOUETTE: The cardiac silhouette is enlarged. The cardiomediastinal silhouette is otherwise normal for portable technique. PLEURA: The costophrenic angles are sharp. No pleural abnormalities are noted. LUNG PARENCHYMA: There is a diffuse reticular pattern with indistinct pulmonary vessels. ABDOMEN: The upper abdomen is clear. There is no subphrenic gas. BONES AND SOFT TISSUES: The patient is status post median sternotomy. IMPRESSION: CARDIOMEGALY WITH PULMONARY INTERSTITIAL EDEMA. R1
[2018-07-08] MEDS: predniSONE TAB* 5 MG PO SCH (08:54)
[2018-07-08] MEDS: Famotidine TAB* 20 MG PO SCH (08:55)
[2018-07-08] MEDS: Folic Acid TAB* 1 MG PO SCH (08:55)
[2018-07-08] MEDS: Ferrous Gluconate TAB* 324 MG TAB PO SCH ×2 (08:55→18:17)
[2018-07-08] MEDS: Allopurinol TAB* 300 MG PO SCH (08:56)
[2018-07-08] MEDS: Ascorbic Acid TAB* 500 MG PO SCH (08:56)
[2018-07-08] MEDS: Multivitamins/Minerals TAB PO SCH (08:56)
[2018-07-08] MEDS: QUEtiapine TAB* 25 MG PO SCH ×2 (08:56→21:17)
[2018-07-08] MEDS: Timolol 0.5% OPTH.SOL* BTL OPHTHALMIC SCH (08:57)
[2018-07-08] MEDS: Hydroxychloroquine TAB* 200 MG PO SCH (08:58)
[2018-07-08] MEDS ORDERED: Levothyroxine TAB* 125 MCG TAB PO SCH (09:00)
--- NOTE | 2018-07-08 16:49 | PN ---
Subjective Date of Service: 07/08/18 Interval History: patient seen this afternoon. No acute events. still complains of severe leg pain bilateral. fatigue and very drowsy. Known for severe pulmonary hypertension Family History: Unchanged from Admission Social History: Unchanged from Admission Past Medical History: Unchanged from Admission Objective Active Medications: Allopurinol (Zyloprim Tab*) 300 mg PO DAILY [facility] Last Admin: 07/08/18 08:56 Dose: 300 mg Ascorbic Acid (Vitamin C Tab*) 500 mg PO DAILY [facility] Last Admin: 07/08/18 08:56 Dose: 500 mg Cyclosporine (Restasis 0.05% Oph) 1 drop BOTH EYES BID [facility]; Protocol Docusate Sodium (Colace Cap*) 100 mg PO 0900,2100 [facility] Last Admin: 07/08/18 08:57 Dose: 100 mg Famotidine (Pepcid Tab*) 40 mg PO QAM [facility] Last Admin: 07/08/18 08:55 Dose: 40 mg Ferrous Gluconate (Fergon Tab*) 324 mg PO 0900,1800 [facility] Last Admin: 07/08/18 08:55 Dose: 324 mg Folic Acid (Folvite Tab*) 1 mg PO QAM [facility] Last Admin: 07/08/18 08:55 Dose: 1 mg Hydroxychloroquine Sulfate (Plaquenil Tab*) 200 mg PO QAM [facility] Last Admin: 07/08/18 08:58 Dose: 200 mg Clindamycin HCl/Dextrose (Cleocin 300 Mg Ivpemix(*)) 300 mg in 50 mls @ 200 mls /hr IV Q6H [facility] Last Admin: 07/08/18 16:08 Dose: 200 mls/hr Latanoprost (Xalatan 0.005%*) 1 drop BOTH EYES BEDTIME [facility] Last Admin: 07/08/18 00:20 Dose: 1 drop Levothyroxine Sodium (Synthroid Tab*) 150 mcg PO 0600 [facility] Last Admin: 07/08/18 06:07 Dose: 150 mcg Multivitamins/Minerals (Theragran/Minerals Tab*) 1 tab PO DAILY [facility] Last Admin: 07/08/18 08:56 Dose: 1 tab Prednisone (Deltasone Tab*) 5 mg PO DAILY [facility] Last Admin: 07/08/18 08:54 Dose: 5 mg Quetiapine Fumarate (Seroquel Tab*) 12.5 mg PO 0900,2100 [facility] Last Admin: 07/08/18 08:56 Dose: 12.5 mg Timolol Maleate (Timoptic 0.5% Opth*) 1 drop OPHTHALMIC DAILY [facility] Last Admin: 07/08/18 08:57 Dose: 1 drop Tramadol HCl (Ultram*) 50 mg PO BEDTIME [facility] Last Admin: 07/07/18 21:39 Dose: 50 mg Tramadol HCl (Ultram*) 50 mg PO DAILY PRN PRN Reason: PAIN Warfarin Sodium (Coumadin Tab(*)) 2 mg PO 1700 [facility]; Protocol Vital Signs - 8 hr 07/08/18 13:25 Temperature 97.3 F Pulse Rate 70 Respiratory 16 Rate Blood Pressure 124/59 (mmHg) O2 Sat by Pulse 98 Oximetry Oxygen Devices in Use Now: Nasal Cannula Appearance: drowsy, arousable. sclera edema Eyes: No Scleral Icterus, - - EOMI Ears/Nose/Mouth/Throat: NL Teeth, Lips, Gums Neck: Trachea Midline, - - JVD+ Respiratory: - - Poor airflow. lip piercing. Expiratory wheezing Cardiovascular: - - severe 3/6 systollic murmur Abdominal: NL Sounds; No Tenderness; No Distention Extremities: - - left foot ulcer, right leg ulcer Neurological: - - confused. drowsy Result Diagrams: 07/08/18 07:03 07/08/18 07:03 Additional Lab and Data: Lab Results 07/07/18 Range/Units 16:50 WBC 12.6 H (3.5-10.8) 10^3/ul RBC 3.35 L (4.00-5.40) 10^6/ul Hgb 11.0 L (12.0-16.0) g/dl Hct 34 L (35-47) % MCV 103 H (80-97) fL MCH 33 H (27-31) pg MCHC 32 (31-36) g/dl RDW 19 H (10.5-15) % Plt Count 246 (150-450) 10^3/ul MPV 8.5 (7.4-10.4) um3 Neut % (Auto) 90.0 H (38-83) % Lymph % (Auto) 3.3 L (25-47) % Sebastian % (Auto) 4.5 (0-7) % Eos % (Auto) 0.1 (0-6) % Baso % (Auto) 2.1 H (0-2) % Absolute Neuts (auto) 11.3 H (1.5-7.7) 10^3/ul Absolute Lymphs (auto) 0.4 L (1.0-4.8) 10^3/ul Absolute Monos (auto) 0.6 (0-0.8) 10^3/ul Absolute Eos (auto) 0 (0-0.6) 10^3/ul Absolute Basos (auto) 0.3 H (0-0.2) 10^3/ul Absolute Nucleated RBC 0.2 10^3/ul Nucleated RBC % 1.6 Microbiology and Other Data: Microbiology 07/07/18 18:56 Skin and Soft Tissue MRSA/MSSA (PCR - Final Foot Left Mrsa Positive S.aureus Positive Gram Stain - Final Wound Culture - Preliminary Staphylococcus Aureus 07/07/18 18:56 Stool Occult Blood (TONYA) - Final Stool Assess/Plan/Problems-Billing Assessment: 77 year old male send from [facility] for abnormal labs (NA 120; BUN ~111;) admitted for volume depletion with acute on chronic kidney failure - Patient Problems (1) Acute kidney injury Current Visit: Yes Status: Acute Code(s): N17.9 - ACUTE KIDNEY FAILURE, UNSPECIFIED SNOMED Code(s): 37147828 Comment: - Admitted for acute on chronic kidney failure secondary to her diuretic and poor cardiac output at baseline due to her pulmonary hypertension. - S/P IVF in the ER and now only only her diuretics - I will keep her diuretic on hold one more day. increase and encourage diet. Reassess her in am and resume diuretic gently and lower dose. - Prognosis is very poor due to her severe pulmonary hypertension (2) Hyponatremia Current Visit: Yes Status: Acute Code(s): E87.1 - HYPO-OSMOLALITY AND HYPONATREMIA SNOMED Code(s): 92715441 Comment: - secondary to diuretic and volume depletions - s/p IVF and hold her diuretics (3) Pulmonary hypertension Current Visit: Yes Status: Acute Code(s): I27.20 - PULMONARY HYPERTENSION, UNSPECIFIED SNOMED Code(s): 22263134 Comment: - Prognosis poor. outcome guarded - Ordered ABG to assess her PH and her PaCO2 at baseline now (4) Aortic stenosis Current Visit: Yes Status: Acute Code(s): I35.0 - NONRHEUMATIC AORTIC (VALVE ) STENOSIS SNOMED Code(s): 23180699 Comment: - Careful with diuretic. - Echo 08/03/17 revealed EF 55%, Severe pulmonary hypertension. moderate and moderate MR with normal functions bioprosthetic valve (5) Atrial fibrillation Current Visit: No Status: Chronic Code(s): I48.91 - UNSPECIFIED ATRIAL FIBRILLATION SNOMED Code(s): 19483398 Comment: - history of PPM - Continue warfarin - Rate controlled. (6) Hypertension Current Visit: No Status: Chronic Priority: Medium Code(s): I10 - ESSENTIAL (PRIMARY) HYPERTENSION SNOMED Code(s): 24511621 Comment: Diuretic on hold pending volume repletion (7) Hypothyroidism Current Visit: No Status: Chronic Code(s): E03.9 - HYPOTHYROIDISM, UNSPECIFIED SNOMED Code(s): 72444156 Comment: Continue levothyroxine. (8) Rheumatoid arthritis Current Visit: No Status: Chronic Code(s): M06.9 - RHEUMATOID ARTHRITIS, UNSPECIFIED SNOMED Code(s): 68495833 Comment: Contiune home plaquenil (9) Chronic foot ulcer Current Visit: Yes Status: Acute Code(s): L97.509 - NON-PRESSURE CHRONIC ULCER OTH PRT UNSP FOOT W UNSP SEVERITY SNOMED Code(s): 219048067 Comment: MRSA on wound culture On clindamycin Wound care consult follow Xray (10) DVT prophylaxis Current Visit: No Status: Acute Code(s): WRI7720 - SNOMED Code(s): 815628929 Comment: Coumadin
--- NOTE | 2018-07-08 17:53 | RAD ---
Indication: Foot ulcers. AP and lateral views of both feet are reviewed. Diffuse osteopenia is noted. There is likely dislocation of the right first metatarsal phalangeal joint. This may be resulting of Charcot joint. IMPRESSION: Diffuse osteopenia. Limited evaluation of both feet. I cannot exclude dislocation of the right first metatarsal phalangeal joint. Possibility of Charcot joint should BE considered. Extensive dermal calcifications are noted.
--- NOTE | 2018-07-08 17:54 | RAD ---
Indication: Right leg ulcers. 2 views of the right lower leg demonstrates no obvious fracture. Extensive dermal calcifications are noted as well as vascular calcifications. IMPRESSION: No definite fracture although extensive vascular and dermal calcifications are noted.
[2018-07-08] MEDS: Warfarin TAB(*) 2 MG PO SCH (18:56)
[2018-07-08 21:07] LABS: EGFR Non-African American 14.8 (>60)
[2018-07-08] MEDS: traMADol TAB* 50 MG PO SCH (21:17)
[2018-07-08] MEDS: CMC: Cyclosporine 0.05% OPHTH (NF) 0.4 ML VIAL BOTH EYES SCH (21:18)
[2018-07-09] MEDS: Clindamycin 300 MG IVPREMIX(* 300 MG/50 ML SDV IV SCH ×4 (02:23→21:15)
[2018-07-09] MEDS: Levothyroxine TAB* 150 MCG TAB PO SCH (06:10)
[2018-07-09] MEDS: Ascorbic Acid TAB* 500 MG PO SCH (08:56)
[2018-07-09] MEDS: CMC: Cyclosporine 0.05% OPHTH (NF) 0.4 ML VIAL BOTH EYES SCH ×2 (08:56→21:21)
[2018-07-09] MEDS: Famotidine TAB* 20 MG PO SCH (08:56)
[2018-07-09] MEDS: Allopurinol TAB* 300 MG PO SCH (08:56)
[2018-07-09] MEDS: Ferrous Gluconate TAB* 324 MG TAB PO SCH ×2 (08:56→17:22)
[2018-07-09] MEDS: Docusate CAP* 100 MG PO SCH ×2 (08:56→21:17)
[2018-07-09] MEDS: QUEtiapine TAB* 25 MG PO SCH ×2 (08:57→21:18)
[2018-07-09] MEDS: Multivitamins/Minerals TAB PO SCH (08:57)
[2018-07-09] MEDS: Hydroxychloroquine TAB* 200 MG PO SCH (08:57)
[2018-07-09] MEDS: Folic Acid TAB* 1 MG PO SCH (08:57)
[2018-07-09] MEDS: Timolol 0.5% OPTH.SOL* BTL OPHTHALMIC SCH (08:57)
[2018-07-09] MEDS: predniSONE TAB* 5 MG PO SCH (08:57)
[2018-07-09 13:01] LABS: ABS Basophils 0.1 10^3/ul (0-0.2); ABS Eosinophils 0 10^3/ul (0-0.6); ABS Lymphocytes 0.3 10^3/ul (1.0-4.8); ABS Monocytes 0.6 10^3/ul (0-0.8); ABS Neutrophils 11.4 10^3/ul (1.5-7.7); ABS Nucleated RBC 0.2 10^3/ul; Eosinophil % 0 % (0-6); Hematocrit 31 % (35-47); Hemoglobin 10.2 g/dl (12.0-16.0); Lymphocyte % 2.7 % (25-47); Mean Corpuscular HGB Conc 33 g/dl (31-36); Mean Corpuscular Hemoglobin 34 pg (27-31); Mean Corpuscular Volume 103 fL (80-97); Nucleated Red Blood Cells % 1.2; Platelet Count 206 10^3/ul (150-450); Red Blood Count 3.02 10^6/ul (4.00-5.40); Red Cell Distribution Width 19 % (10.5-15); White Blood Count 12.4 10^3/ul (3.5-10.8)
[2018-07-09 13:51] LABS: EGFR Non-African American 15.1 (>60)
--- NOTE | 2018-07-09 16:53 | PN ---
Subjective Date of Service: 07/09/18 Interval History: Despite she is more awake, she continues to falls asleep easily during the interview that require multiple Cues to keep her attention. No events overnight. ABG yesterday reviewed and does not have evidence of CO2 retentions. I could not connect with her son today and yesterday, I left a message to nursing staff that if he does comes in to inquire about a time I can meet with him tomorrow to discuss treatment and prognosis. Family History: Unchanged from Admission Social History: Unchanged from Admission Past Medical History: Unchanged from Admission Objective Active Medications: Allopurinol (Zyloprim Tab*) 300 mg PO DAILY [facility] Last Admin: 07/09/18 08:56 Dose: 300 mg Ascorbic Acid (Vitamin C Tab*) 500 mg PO DAILY [facility] Last Admin: 07/09/18 08:56 Dose: 500 mg Cyclosporine (Restasis 0.05% Ophth) 1 drop BOTH EYES BID [facility]; Protocol Last Admin: 07/09/18 08:56 Dose: 1 drop Docusate Sodium (Colace Cap*) 100 mg PO 0900,2100 [facility] Last Admin: 07/09/18 08:56 Dose: 100 mg Famotidine (Pepcid Tab*) 40 mg PO QAM [facility] Last Admin: 07/09/18 08:56 Dose: 40 mg Ferrous Gluconate (Fergon Tab*) 324 mg PO 0900,1800 [facility] Last Admin: 07/09/18 08:56 Dose: 324 mg Folic Acid (Folvite Tab*) 1 mg PO QAM [facility] Last Admin: 07/09/18 08:57 Dose: 1 mg Hydroxychloroquine Sulfate (Plaquenil Tab*) 200 mg PO QAM [facility] Last Admin: 07/09/18 08:57 Dose: 200 mg Clindamycin HCl/Dextrose (Cleocin 300 Mg Ivpemix(*)) 300 mg in 50 mls @ 200 mls /hr IV Q6H [facility] Last Admin: 07/09/18 14:22 Dose: 200 mls/hr Latanoprost (Xalatan 0.005%*) 1 drop BOTH EYES BEDTIME [facility] Last Admin: 07/08/18 21:18 Dose: 1 drop Levothyroxine Sodium (Synthroid Tab*) 150 mcg PO 0600 [facility] Last Admin: 07/09/18 06:10 Dose: 150 mcg Multivitamins/Minerals (Theragran/Minerals Tab*) 1 tab PO DAILY [facility] Last Admin: 07/09/18 08:57 Dose: 1 tab Prednisone (Deltasone Tab*) 5 mg PO DAILY [facility] Last Admin: 07/09/18 08:57 Dose: 5 mg Quetiapine Fumarate (Seroquel Tab*) 12.5 mg PO 0900,2100 [facility] Last Admin: 07/09/18 08:57 Dose: 12.5 mg Timolol Maleate (Timoptic 0.5% Opth*) 1 drop OPHTHALMIC DAILY [facility] Last Admin: 07/09/18 08:57 Dose: 1 drop Tramadol HCl (Ultram*) 50 mg PO BEDTIME [facility] Last Admin: 07/08/18 21:17 Dose: 50 mg Tramadol HCl (Ultram*) 50 mg PO DAILY PRN PRN Reason: PAIN Warfarin Sodium (Coumadin Tab(*)) 2 mg PO 1700 [facility]; Protocol Last Admin: 07/08/18 18:56 Dose: Not Given Vital Signs - 8 hr 07/09/18 07/09/18 11:25 11:42 Temperature 97.2 F Pulse Rate 71 Respiratory 16 Rate Blood Pressure 116/78 (mmHg) O2 Sat by Pulse 100 Oximetry Oxygen Devices in Use Now: Nasal Cannula Appearance: awake, drowsy. Eyes: No Scleral Icterus, - - EOMI Neck: Trachea Midline Respiratory: Symmetrical Chest Expansion and Respiratory Effort, - - Poor air flow Cardiovascular: - - systollic murmur Abdominal: NL Sounds; No Tenderness; No Distention Extremities: No Edema, - - clubbing Skin: - - bilaterla ulcers Result Diagrams: 07/09/18 12:44 07/09/18 12:44 Additional Lab and Data: Lab Results 07/07/18 Range/Units 16:50 WBC 12.6 H (3.5-10.8) 10^3/ul RBC 3.35 L (4.00-5.40) 10^6/ul Hgb 11.0 L (12.0-16.0) g/dl Hct 34 L (35-47) % MCV 103 H (80-97) fL MCH 33 H (27-31) pg MCHC 32 (31-36) g/dl RDW 19 H (10.5-15) % Plt Count 246 (150-450) 10^3/ul MPV 8.5 (7.4-10.4) um3 Neut % (Auto) 90.0 H (38-83) % Lymph % (Auto) 3.3 L (25-47) % Roane % (Auto) 4.5 (0-7) % Eos % (Auto) 0.1 (0-6) % Baso % (Auto) 2.1 H (0-2) % Absolute Neuts (auto) 11.3 H (1.5-7.7) 10^3/ul Absolute Lymphs (auto) 0.4 L (1.0-4.8) 10^3/ul Absolute Monos (auto) 0.6 (0-0.8) 10^3/ul Absolute Eos (auto) 0 (0-0.6) 10^3/ul Absolute Basos (auto) 0.3 H (0-0.2) 10^3/ul Absolute Nucleated RBC 0.2 10^3/ul Nucleated RBC % 1.6 Microbiology and Other Data: Microbiology 07/07/18 18:56 Skin and Soft Tissue MRSA/MSSA (PCR - Final Foot Left Mrsa Positive S.aureus Positive Gram Stain - Final Wound Culture - Preliminary Staphylococcus Aureus 07/07/18 18:56 Stool Occult Blood (TONYA) - Final Stool Assess/Plan/Problems-Billing Assessment: 77 [facility] (NA 120; BUN ~111;) admitted for volume depletion with acute on chronic kidney failure - Patient Problems (1) Acute kidney injury Current Visit: Yes Status: Acute Code(s): N17.9 - ACUTE KIDNEY FAILURE, UNSPECIFIED SNOMED Code(s): 70153206 Comment: - Admitted for acute on chronic kidney failure secondary to her diuretic and poor cardiac output at baseline due to her pulmonary hypertension. - S/P IVF in the ER and now only holding her diuretics - I will keep her diuretic on hold again today. Increase and encourage diet. Reassess her in am and resume diuretic gently and lower dose. - Patient is somehow confused and unable to have meaningful discussion with patient regarding prognosis, palliative etc... I left a message with nursing staff to notify her son that I would like to meet with him tomorrow. I will discuss palliative care with son - Prognosis is very poor due to her severe pulmonary hypertension (2) Hyponatremia Current Visit: Yes Status: Acute Code(s): E87.1 - HYPO-OSMOLALITY AND HYPONATREMIA SNOMED Code(s): 68058369 Comment: - secondary to diuretic and volume depletions - s/p IVF and hold her diuretics (3) Pulmonary hypertension Current Visit: Yes Status: Acute Code(s): I27.20 - PULMONARY HYPERTENSION, UNSPECIFIED SNOMED Code(s): 98558962 Comment: - Prognosis poor. outcome guarded - Ordered ABG no evidence of CO2 at retention (4) Aortic stenosis Current Visit: Yes Status: Acute Code(s): I35.0 - NONRHEUMATIC AORTIC (VALVE ) STENOSIS SNOMED Code(s): 59725159 Comment: - Careful with diuretic. - Echo 08/03/17 revealed EF 55%, Severe pulmonary hypertension. moderate and moderate MR with normal functions bioprosthetic valve (5) Atrial fibrillation Current Visit: No Status: Chronic Code(s): I48.91 - UNSPECIFIED ATRIAL FIBRILLATION SNOMED Code(s): 81531615 Comment: - history of PPM - Continue warfarin - Rate controlled. (6) Hypertension Current Visit: No Status: Chronic Priority: Medium Code(s): I10 - ESSENTIAL (PRIMARY) HYPERTENSION SNOMED Code(s): 10093895 Comment: Diuretic on hold pending volume repletion (7) Hypothyroidism Current Visit: No Status: Chronic Code(s): E03.9 - HYPOTHYROIDISM, UNSPECIFIED SNOMED Code(s): 64900053 Comment: Continue levothyroxine. (8) Rheumatoid arthritis Current Visit: No Status: Chronic Code(s): M06.9 - RHEUMATOID ARTHRITIS, UNSPECIFIED SNOMED Code(s): 50677957 Comment: Contiune home plaquenil (9) Chronic foot ulcer Current Visit: Yes Status: Acute Code(s): L97.509 - NON-PRESSURE CHRONIC ULCER OTH PRT UNSP FOOT W UNSP SEVERITY SNOMED Code(s): 147571643 Comment: MRSA on wound culture - On clindamycin will probably treat total week combo (IV/PO) - Wound care consult appreciated and recommendation: "covering all wounds with xeroform, dry gauze and rolled gauze. Change dressing every third day and prn for soiling or drainage. All wounds are very painful when touched, consider medicating patient prior to dressing changes." - Xray chronic changes possible dislocation of the right first metatarsal joint. Not indications for surgery. Will need to immobolize it. now sure if how it occured. Will heel on its own no surgery required (10) DVT prophylaxis Current Visit: No Status: Acute Code(s): DVX4520 - SNOMED Code(s): 353351595 Comment: Coumadin
[2018-07-09] MEDS: Warfarin TAB(*) 2 MG PO SCH (17:22)
[2018-07-09] MEDS: traMADol TAB* 50 MG PO SCH (21:17)
[2018-07-09] MEDS: Latanoprost 0.005%* 2.5 ml BTL BOTH EYES SCH (21:22)
[2018-07-10] MEDS: Clindamycin 300 MG IVPREMIX(* 300 MG/50 ML SDV IV SCH ×4 (02:26→20:49)
[2018-07-10] MEDS: Levothyroxine TAB* 150 MCG TAB PO SCH (06:28)
[2018-07-10 06:51] LABS: Hematocrit 33 % (35-47); Hemoglobin 10.9 g/dl (12.0-16.0); Mean Corpuscular HGB Conc 33 g/dl (31-36); Mean Corpuscular Hemoglobin 34 pg (27-31); Mean Corpuscular Volume 102 fL (80-97); Mean Platelet Volume 8.9 um3 (7.4-10.4); Platelet Count 217 10^3/ul (150-450); Red Cell Distribution Width 19 % (10.5-15); White Blood Count 12.3 10^3/ul (3.5-10.8)
[2018-07-10 06:57] LABS: INR 3.08 (0.77-1.02)
[2018-07-10 07:05] LABS: EGFR Non-African American 16.1 (>60)
[2018-07-10] MEDS: Hydroxychloroquine TAB* 200 MG PO SCH (07:59)
[2018-07-10] MEDS: Ferrous Gluconate TAB* 324 MG TAB PO SCH ×2 (07:59→17:30)
[2018-07-10] MEDS: Ascorbic Acid TAB* 500 MG PO SCH (08:00)
[2018-07-10] MEDS: Folic Acid TAB* 1 MG PO SCH (08:00)
[2018-07-10] MEDS: QUEtiapine TAB* 25 MG PO SCH ×2 (08:00→20:51)
[2018-07-10] MEDS: Allopurinol TAB* 300 MG PO SCH (08:00)
[2018-07-10] MEDS: predniSONE TAB* 5 MG PO SCH (08:00)
[2018-07-10] MEDS: Multivitamins/Minerals TAB PO SCH (08:00)
[2018-07-10] MEDS: CMC: Cyclosporine 0.05% OPHTH (NF) 0.4 ML VIAL BOTH EYES SCH ×2 (08:01→20:50)
[2018-07-10] MEDS: Famotidine TAB* 20 MG PO SCH (08:01)
[2018-07-10] MEDS: Timolol 0.5% OPTH.SOL* BTL OPHTHALMIC SCH (08:01)
[2018-07-10 08:16] LABS: ABS Basophils 0.2 10^3/ul (0-0.2); ABS Eosinophils 0 10^3/ul (0-0.6); ABS Lymphocytes 0.6 10^3/ul (1.0-4.8); ABS Monocytes 0.7 10^3/ul (0-0.8); ABS Neutrophils 10.8 10^3/ul (1.5-7.7); ABS Nucleated RBC 0.3 10^3/ul; Eosinophil % 0 % (0-6); Lymphocyte % 4.7 % (25-47)
[2018-07-10] MEDS: Docusate CAP* 100 MG PO SCH ×2 (08:22→20:50)
--- NOTE | 2018-07-10 16:02 | PN ---
Subjective Date of Service: 07/10/18 Interval History: I did speak with two of her sons including Clinton her HCP. I did discuss her prognosis in the setting of her poor renal functions, pulmonary hypertension and heart disease. they had all their questions answered and they did discuss among the rest of the family and they wish to proceed with comfort care and palliative care. Patient herself is not in any acute distress but remain confused and drowsy. No events overnight Family History: Unchanged from Admission Social History: Unchanged from Admission Past Medical History: Unchanged from Admission Objective Active Medications: Allopurinol (Zyloprim Tab*) 300 mg PO DAILY [facility] Last Admin: 07/10/18 08:00 Dose: 300 mg Ascorbic Acid (Vitamin C Tab*) 500 mg PO DAILY [facility] Last Admin: 07/10/18 08:00 Dose: 500 mg Cyclosporine (Restasis 0.05% Oph) 1 drop BOTH EYES BID [facility]; Protocol Last Admin: 07/10/18 08:01 Dose: 1 drop Docusate Sodium (Colace Cap*) 100 mg PO 0900,2100 [facility] Last Admin: 07/10/18 08:22 Dose: Not Given Famotidine (Pepcid Tab*) 40 mg PO QAM [facility] Last Admin: 07/10/18 08:01 Dose: 40 mg Ferrous Gluconate (Fergon Tab*) 324 mg PO 0900,1800 [facility] Last Admin: 07/10/18 07:59 Dose: 324 mg Folic Acid (Folvite Tab*) 1 mg PO QAM [facility] Last Admin: 07/10/18 08:00 Dose: 1 mg Hydroxychloroquine Sulfate (Plaquenil Tab*) 200 mg PO QAM [facility] Last Admin: 07/10/18 07:59 Dose: 200 mg Clindamycin HCl/Dextrose (Cleocin 300 Mg Ivpemix(*)) 300 mg in 50 mls @ 200 mls /hr IV Q6H [facility] Last Admin: 07/10/18 13:24 Dose: 200 mls/hr Latanoprost (Xalatan 0.005%*) 1 drop BOTH EYES BEDTIME [facility] Last Admin: 07/09/18 21:22 Dose: 1 drop Levothyroxine Sodium (Synthroid Tab*) 150 mcg PO 0600 [facility] Last Admin: 07/10/18 06:28 Dose: 150 mcg Multivitamins/Minerals (Theragran/Minerals Tab*) 1 tab PO DAILY [facility] Last Admin: 07/10/18 08:00 Dose: 1 tab Prednisone (Deltasone Tab*) 5 mg PO DAILY [facility] Last Admin: 07/10/18 08:00 Dose: 5 mg Quetiapine Fumarate (Seroquel Tab*) 12.5 mg PO 0900,2100 [facility] Last Admin: 07/10/18 08:00 Dose: 12.5 mg Timolol Maleate (Timoptic 0.5% Opth*) 1 drop OPHTHALMIC DAILY [facility] Last Admin: 07/10/18 08:01 Dose: 1 drop Tramadol HCl (Ultram*) 50 mg PO BEDTIME [facility] Last Admin: 07/09/18 21:17 Dose: 50 mg Tramadol HCl (Ultram*) 50 mg PO DAILY PRN PRN Reason: PAIN Warfarin Sodium (Coumadin Tab(*)) 2 mg PO 1700 [facility]; Protocol Last Admin: 07/09/18 17:22 Dose: 2 mg Vital Signs - 8 hr 07/10/18 07/10/18 08:00 12:28 Temperature 97.4 F Pulse Rate 70 Respiratory 16 24 Rate Blood Pressure 104/66 (mmHg) O2 Sat by Pulse 100 Oximetry Oxygen Devices in Use Now: None Appearance: arousable, obvious generalized cyanosis and decrease perfusion as expected in her setting of severe pulmonary hypertension Eyes: - - sclera edema Ears/Nose/Mouth/Throat: - - dry oral mucosa. Neck: Trachea Midline Respiratory: - - poor inspiraroty effort. expiratory wheezing Cardiovascular: NL Sounds; No Murmurs; No JVD Abdominal: NL Sounds; No Tenderness; No Distention Extremities: - - ulcers bilaterally to all toes on the left and right several ulcer medial and lateral measure by wound nurse. she does have tenderness over the right toe Result Diagrams: 07/10/18 06:38 07/10/18 06:38 Additional Lab and Data: Lab Results 07/07/18 Range/Units 16:50 WBC 12.6 H (3.5-10.8) 10^3/ul RBC 3.35 L (4.00-5.40) 10^6/ul Hgb 11.0 L (12.0-16.0) g/dl Hct 34 L (35-47) % MCV 103 H (80-97) fL MCH 33 H (27-31) pg MCHC 32 (31-36) g/dl RDW 19 H (10.5-15) % Plt Count 246 (150-450) 10^3/ul MPV 8.5 (7.4-10.4) um3 Neut % (Auto) 90.0 H (38-83) % Lymph % (Auto) 3.3 L (25-47) % Ramsey % (Auto) 4.5 (0-7) % Eos % (Auto) 0.1 (0-6) % Baso % (Auto) 2.1 H (0-2) % Absolute Neuts (auto) 11.3 H (1.5-7.7) 10^3/ul Absolute Lymphs (auto) 0.4 L (1.0-4.8) 10^3/ul Absolute Monos (auto) 0.6 (0-0.8) 10^3/ul Absolute Eos (auto) 0 (0-0.6) 10^3/ul Absolute Basos (auto) 0.3 H (0-0.2) 10^3/ul Absolute Nucleated RBC 0.2 10^3/ul Nucleated RBC % 1.6 Microbiology and Other Data: Microbiology 07/07/18 18:56 Skin and Soft Tissue MRSA/MSSA (PCR - Final Foot Left Mrsa Positive S.aureus Positive Gram Stain - Final Wound Culture - Preliminary Staphylococcus Aureus 07/07/18 18:56 Stool Occult Blood (TONYA) - Final Stool Assess/Plan/Problems-Billing Assessment: 77 year old male send from [facility] for abnormal labs (NA 120; BUN ~111;) admitted for volume depletion with acute on chronic kidney failure - Patient Problems (1) Acute kidney injury Current Visit: Yes Status: Acute Code(s): N17.9 - ACUTE KIDNEY FAILURE, UNSPECIFIED SNOMED Code(s): 98467789 Comment: - Admitted for acute on chronic kidney failure secondary to her diuretic and poor cardiac output at baseline due to her pulmonary hypertension. - S/P IVF in the ER and now only holding her diuretics - I will keep her diuretic on hold. She is not in volume overload. Increase and encourage diet. - Patient is somehow confused and unable to have meaningful discussion with patient regarding prognosis, palliative etc... I did meet with her HCP Gabby and her older son and they are update on her condition and they were ready to pursue and respect their mother wished to pursue confort care and palliative care. - Prognosis is very poor due to her severe pulmonary hypertension. - Discussed with interior plant caretaker and recommend to be transfered back to [facility] and once back to [facility] for them to call for palliative care and hospice care. (2) Hyponatremia Current Visit: Yes Status: Acute Code(s): E87.1 - HYPO-OSMOLALITY AND HYPONATREMIA SNOMED Code(s): 97989555 Comment: - secondary to diuretic and volume depletions - s/p IVF and hold her diuretics (3) Pulmonary hypertension Current Visit: Yes Status: Acute Code(s): I27.20 - PULMONARY HYPERTENSION, UNSPECIFIED SNOMED Code(s): 91669703 Comment: - Prognosis poor. outcome guarded - Ordered ABG no evidence of CO2 at retention (4) Aortic stenosis Current Visit: Yes Status: Acute Code(s): I35.0 - NONRHEUMATIC AORTIC (VALVE ) STENOSIS SNOMED Code(s): 15318728 Comment: - Careful with diuretic. - Echo 08/03/17 revealed EF 55%, Severe pulmonary hypertension. moderate and moderate MR with normal functions bioprosthetic valve (5) Atrial fibrillation Current Visit: No Status: Chronic Code(s): I48.91 - UNSPECIFIED ATRIAL FIBRILLATION SNOMED Code(s): 25458428 Comment: - history of PPM - on warfarin, check AM INR - Rate controlled. (6) Hypertension Current Visit: No Status: Chronic Priority: Medium Code(s): I10 - ESSENTIAL (PRIMARY) HYPERTENSION SNOMED Code(s): 04818972 Comment: Diuretic on hold pending volume repletion (7) Hypothyroidism Current Visit: No Status: Chronic Code(s): E03.9 - HYPOTHYROIDISM, UNSPECIFIED SNOMED Code(s): 85534562 Comment: Continue levothyroxine. (8) Rheumatoid arthritis Current Visit: No Status: Chronic Code(s): M06.9 - RHEUMATOID ARTHRITIS, UNSPECIFIED SNOMED Code(s): 95605875 Comment: Contiune home plaquenil (9) Chronic foot ulcer Current Visit: Yes Status: Acute Code(s): L97.509 - NON-PRESSURE CHRONIC ULCER OTH PRT UNSP FOOT W UNSP SEVERITY SNOMED Code(s): 339975200 Comment: MRSA on wound culture - On clindamycin will probably treat total week combo (IV/PO) - Wound care consult appreciated and recommendation: "covering all wounds with xeroform, dry gauze and rolled gauze. Change dressing every third day and prn for soiling or drainage. All wounds are very painful when touched, consider medicating patient prior to dressing changes." - Xray chronic changes possible dislocation of the right first metatarsal joint. Son is aware this occured about 2 weeks ago. Not indications for surgery. Will need to immobolize it. (10) DVT prophylaxis Current Visit: No Status: Acute Code(s): KRB2649 - SNOMED Code(s): 767819743 Comment: Coumadin
[2018-07-10] MEDS: Warfarin TAB(*) 2 MG PO SCH (17:30)
[2018-07-10] MEDS: traMADol TAB* 50 MG PO SCH (20:49)
[2018-07-10] MEDS: Latanoprost 0.005%* 2.5 ml BTL BOTH EYES SCH (20:49)
[2018-07-10 22:42] LABS: Urine Appearance Clear; Urine Blood Negative (Negative); Urine Color Yellow; Urine Ketones Negative (Negative); Urine Protein Negative (Negative); Urine Specific Gravity 1.012 (1.010-1.030); Urine Urobilinogen Negative (Negative)
[2018-07-11] MEDS: Clindamycin 300 MG IVPREMIX(* 300 MG/50 ML SDV IV SCH ×3 (02:30→16:54)
[2018-07-11] MEDS: Levothyroxine TAB* 150 MCG TAB PO SCH (06:19)
[2018-07-11] MEDS: Allopurinol TAB* 300 MG PO SCH (08:23)
[2018-07-11] MEDS: QUEtiapine TAB* 25 MG PO SCH ×2 (08:23→20:16)
[2018-07-11] MEDS: CMC: Cyclosporine 0.05% OPHTH (NF) 0.4 ML VIAL BOTH EYES SCH ×2 (08:23→20:25)
[2018-07-11] MEDS: Ascorbic Acid TAB* 500 MG PO SCH (08:23)
[2018-07-11] MEDS: Folic Acid TAB* 1 MG PO SCH (08:24)
[2018-07-11] MEDS: Hydroxychloroquine TAB* 200 MG PO SCH (08:24)
[2018-07-11] MEDS: Timolol 0.5% OPTH.SOL* BTL OPHTHALMIC SCH (08:24)
[2018-07-11] MEDS: Ferrous Gluconate TAB* 324 MG TAB PO SCH ×2 (08:24→16:54)
[2018-07-11] MEDS: predniSONE TAB* 5 MG PO SCH (08:24)
[2018-07-11] MEDS: Multivitamins/Minerals TAB PO SCH (08:24)
[2018-07-11] MEDS: Famotidine TAB* 20 MG PO SCH (08:25)
[2018-07-11] MEDS: Docusate CAP* 100 MG PO SCH ×2 (08:35→20:15)
[2018-07-11 10:03] LABS: ABS Basophils 0.1 10^3/ul (0-0.2); ABS Eosinophils 0 10^3/ul (0-0.6); ABS Lymphocytes 0.5 10^3/ul (1.0-4.8); ABS Monocytes 0.7 10^3/ul (0-0.8); ABS Neutrophils 11.8 10^3/ul (1.5-7.7); ABS Nucleated RBC 0.3 10^3/ul; Eosinophil % 0 % (0-6); Hematocrit 32 % (35-47); Hemoglobin 10.4 g/dl (12.0-16.0); Lymphocyte % 3.9 % (25-47); Mean Corpuscular HGB Conc 32 g/dl (31-36); Mean Corpuscular Hemoglobin 33 pg (27-31); Mean Corpuscular Volume 103 fL (80-97); Mean Platelet Volume 9.3 um3 (7.4-10.4); Platelet Count 196 10^3/ul (150-450); Red Blood Count 3.14 10^6/ul (4.00-5.40); Red Cell Distribution Width 19 % (10.5-15); White Blood Count 13.2 10^3/ul (3.5-10.8)
[2018-07-11 10:06] LABS: INR 3.27 (0.77-1.02)
[2018-07-11 10:18] LABS: EGFR Non-African American 16.8 (>60)
[2018-07-11] MEDS ORDERED: Magnesium Sulfate 3 GM IV IVPB ONE ×2 (13:00)
--- NOTE | 2018-07-11 15:03 | TRS ---
CC: [facility] Facility DISCHARGE/TRANSFER SUMMARY: DATE OF ADMISSION: 07/07/18 DATE OF DISCHARGE: 07/11/18 FINAL DISCHARGE DIAGNOSES: 1. Yyasj-yq-gcbipba kidney failure, stage 4, secondary to volume depletion and diuretic. 2. Utdss-bs-cgfnkak heart failure, diastolic. 3. Hyponatremia, chronic secondary to volume depletion and diuretic. 4. Pulmonary hypertension, severe, with cor pulmonale, end-stage. 5. Aortic stenosis. 6. Atrial fibrillation. 7. Hypertension. 8. Hypothyroidism. 9. Rheumatoid arthritis. 10. Chronic foot ulcers. 11. Right first metatarsal joint fracture, chronic. HOSPITAL COURSE: The patient was admitted via our emergency room [facility]18 for abnormal labs manifested with lower sodium. The patient, on admissio n, was a poor historian with underlying confusion, lethargy, history was obtained from the son at bed side. On presentation, her diagnostic study was found to be pertinent for sodium of 121 at an outsid e facility and in the emergency room repeated was 125. Also, her renal functions were significant fo r elevated BUN of 111 and creatinine as high as 3.25. With that said, the patient was admitted to the emergency room service with acute kidney injury, precipitated by her underlying cardiac pulmonale, e xacerbated with a diuretic to achieve euvolemia. Therefore, her diuretic was placed on hold. She wa s given gentle IV fluids over the course of 24 hours to gently hydrate her. The son was quite concer roxi about holding the diuretic and give her IV fluids as she was known to go into severe heart failur es when that happened. Nonetheless, the diuretic was held for 24 hours. Her IV fluid was given for 24 hours period on the following day. Her chemistry revealed improved gently in her sodium up to 128 , with decreasing her BUN from 111 to 105 and declined over the next course and the baseline maintain ed in 102. Creatinine remained elevated on admission and declined over the next course for several d ays and today is down to 2.7. Throughout the hospital stay, her diuretic was kept on hold simply bec ause she had very poor oral intake and she continued to demonstrate dehydration and renal azotemia de spite the gentle IV fluids, which was only limited to 24 hours. I did follow the patient daily from July 08 until today and I did meet on 2 occasions with her family, both of her sons, and one o f them is the healthcare proxy, and I did explain, during course of the hospital, the patient's respo nse to the therapy of IV fluids and holding diuretic. I did explain to them at the present time, the re is no acute intervention, majority of this is a chronic disease, unfortunately progressively towar ds the end-stage, specifically given her cardiac history of pulmonary hypertension and end-stage kidn ey disease. I did recommend to consider palliative and comfort care. They took time over 24 hours a nd I did meet with them on the following day on July 10, 2 of her sons, the healthcare proxy o ne of them, they reviewed their discussion with their mother and given the presentation of her medica l condition and the chronicity and the progression, they did wish to proceed with comfort and palliat bright care as they do want to honor their mother's wishes, simply realizing that she has been going thr ough the same presentation over and over, I suspect a few months, which requires similar management. At this time, they feel comfortable and they wish to proceed with comfort care. I did discuss the c ase with our case management associate and the recommendation is to proceed with the discharge back to [facility] u nder her current medical condition and I do recommend in my discharge, to proceed with comfort care m easures if the accepting physician at the [facility] is in agreement. The family was made aw are that this will be deferred to the provider at the [facility] to pursue comfort care and provide ho spice consult once her records are reviewed and if they are in agreement with our plan. At present t angelica, I deem the patient is stable for discharge, I would not pursue any further diagnostic or aggress bright treatment measure. I did review her medications to the best of my ability. I discontinued her d iuretics to avoid exacerbation of her renal failure and her renal azotemia. I did place her Coumadin on hold, simply the fact that her INR is slightly supratherapeutic. PHYSICAL EXAM: Vital signs today, temperature 97.7, pulse 70, respiratory rate 18, satting 100%, and blood pressure 136/52. Generally, she is awake, arousable, she responds with a few words, but falls back to sleep very easily. She does have the prominent chronic dusky skin color, which is consisten t with the severe pulmonary hypertension. Her cardiovascular, S1, S2. Irregularly irregular. She h as a profound severe 3/6 holosystolic murmur. Lungs: Poor air flow, positive expiratory wheezing. Abdomen: Positive bowel sounds. Soft, nontender, nondistended. Extremities: She does have poor va scular disease. She has multiple ulcers on both legs and toes. She has 2 wounds in the right lower leg measuring about 0.6 and 0.7 cm, and she has clusters of 2 wounds on the right medial leg about 3. 3 and 4.3 cm. She also has ulcers and wound on the left lower leg. Poor peripheral pulse, delay in the cap refill. 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 She is able to swallow with assistance and she is having at tops no more than 50% of her meal. DISCHARGE MEDICATIONS: 1. Tramadol p.r.n. for pain, she takes 50 mg daily during the day and 50 mg at bedtime. 2. Allopurinol 300 mg daily. 3. Vitamin C 500 mg p.o. daily. 4. Restasis 0.05% 1 drop both eyes. 5. Colace 100 mg b.i.d. 6. Pepcid 40 mg daily. 7. Iodine 325 b.i.d. 8. Folic acid 1 mg daily. 9. Plaquenil 200 mg daily. 10. Xalatan 0.005% 1 drop both eyes at bedtime. 11. Levothyroxine 150 mcg daily. 12. Multivitamin daily. 13. Prednisone 5 mg daily. 14. Seroquel 12.5 b.i.d. 15. Timoptic 0.5% 1 drop daily. Medications discontinued: 1. Coumadin is on hold pending followup INR as her INR today was 3.2. 2. The patient is off her diuretic from home, which are the furosemide 80 mg b.i.d., Zaroxolyn 2.5 w eekly, and spironolactone 25 mg p.o. b.i.d. DIAGNOSTIC STUDIES/LAB DATA: She did have chest x-ray on presentation, showed cardiomegaly with pulm onary interstitial edema. Foot x-ray showed chronic diffuse osteopenia, there was questionable right 1st metatarsal phalangeal point dislocation, and extensive dermal calcification except both feet, and the lower extremity of he r right leg shows extensive vascular calcification. DISCHARGE INSTRUCTIONS: 1. The patient will be transferred back to [facility]. 2. I would recommend a family meeting early next week, possibly tomorrow, on Thursday, to revisit my d iscussion with both sons, their wishes to pursue comfort care and hospice. 3. I would keep her on ho ld on her diuretic and depend how the conversation with the [facility] provider to pursue comfort care , and she is to either resume her diuretic versus proceed with comfort and palliative pending the gael ting between the family and the provider at [facility]. [id number]/[facility] #: [id number]
[2018-07-11] MEDS: Warfarin TAB(*) 2 MG PO SCH (16:54)
[2018-07-11] MEDS: traMADol TAB* 50 MG PO SCH (20:15)
[2018-07-11] MEDS: Latanoprost 0.005%* 2.5 ml BTL BOTH EYES SCH (20:16)
[2018-07-12] MEDS: Levothyroxine TAB* 150 MCG TAB PO SCH (05:50)
[2018-07-12] MEDS: Ascorbic Acid TAB* 500 MG PO SCH (08:35)
[2018-07-12] MEDS: Hydroxychloroquine TAB* 200 MG PO SCH (08:36)
[2018-07-12] MEDS: Famotidine TAB* 20 MG PO SCH (08:36)
[2018-07-12] MEDS: Multivitamins/Minerals TAB PO SCH (08:36)
[2018-07-12] MEDS: Folic Acid TAB* 1 MG PO SCH (08:37)
[2018-07-12] MEDS: Ferrous Gluconate TAB* 324 MG TAB PO SCH (08:41)
[2018-07-12] MEDS: QUEtiapine TAB* 25 MG PO SCH (08:43)
[2018-07-12] MEDS: predniSONE TAB* 5 MG PO SCH (08:44)
[2018-07-12] MEDS: Allopurinol TAB* 300 MG PO SCH (08:44)
[2018-07-12] MEDS: CMC: Cyclosporine 0.05% OPHTH (NF) 0.4 ML VIAL BOTH EYES SCH (08:48)
[2018-07-12] MEDS: Docusate CAP* 100 MG PO SCH (08:49)
[2018-07-12] MEDS: Timolol 0.5% OPTH.SOL* BTL OPHTHALMIC SCH (08:51)
[2018-07-12 08:57] VITALS: BP 140/53
--- NOTE | 2018-08-23 16:03 | TRS ---
TRANSFER SUMMARY: DATE OF ADMISSION: DATE OF TRANSFER: 07/11/18 ADDENDUM DATE: 08/23/18 ADDENDUM: This is an addendum to the transfer summary to reflect the actual discharge date is , not 07/11/18. The patient was discharged to [facility] on 07/12/18. [id number]/[facility] #: [id number]
== END 2018-07-12 11:00 | DRG 682 ==
LOC: ED 14:27 → MED 18:29
PROVIDERS: ADMIT Internal Medicine; ATTEND Internal Medicine
DX: N17.9 Acute kidney failure, unspecified (principal); I50.33 Acute on chronic diastolic (congestive) heart failure; I26.09 Other pulmonary embolism with acute cor pulmonale; I13.0 Hypertensive heart and chronic kidney disease with heart failure and stage 1 through stage 4 chronic kidney disease, or unspecified chronic kidney disease; E87.1 Hypo-osmolality and hyponatremia; I44.2 Atrioventricular block, complete; D61.9 Aplastic anemia, unspecified; L97.919 Non-pressure chronic ulcer of unspecified part of right lower leg with unspecified severity; I50.42 Chronic combined systolic (congestive) and diastolic (congestive) heart failure; N18.4 Chronic kidney disease, stage 4 (severe); E86.9 Volume depletion, unspecified; I35.0 Nonrheumatic aortic (valve) stenosis; I48.91 Unspecified atrial fibrillation; E03.9 Hypothyroidism, unspecified; M06.9 Rheumatoid arthritis, unspecified; L97.509 Non-pressure chronic ulcer of other part of unspecified foot with unspecified severity; M84.474G Pathological fracture, right foot, subsequent encounter for fracture with delayed healing; E86.0 Dehydration; F01.50 Vascular dementia, unspecified severity, without behavioral disturbance, psychotic disturbance, mood disturbance, and anxiety; J44.9 Chronic obstructive pulmonary disease, unspecified; K21.9 Gastro-esophageal reflux disease without esophagitis; D72.829 Elevated white blood cell count, unspecified; Z79.01 Long term (current) use of anticoagulants; Z79.52 Long term (current) use of systemic steroids; Z95.0 Presence of cardiac pacemaker; Z79.899 Other long term (current) drug therapy; Z88.5 Allergy status to narcotic agent; Z88.0 Allergy status to penicillin; Z88.2 Allergy status to sulfonamides; Z88.8 Allergy status to other drugs, medicaments and biological substances; I13.10 Hypertensive heart and chronic kidney disease without heart failure, with stage 1 through stage 4 chronic kidney disease, or unspecified chronic kidney disease; I73.89 Other specified peripheral vascular diseases
CPT/HCPCS: 36415; 36600; 71045; 80048; 80053; 81003; 82270; 82803; 83605; 83690; 83735; 84100; 85025; 85610; 86140; 87070; 87077; 87186; 87205; 87640; 87641; 93005; 99284; A9270-GY; J3475; J7512